=== PATIENT | male | born 1965 | race Caucasian/White ===

== ENCOUNTER → 2016-03-29 | Day surgery (SDC) | payer BC ==
[~2016-03-29] VITALS: Ht 170.2 cm; Wt 102.5 kg
[~2016-03-29] MED LIST: AMOX500C PO; ASPI1TAB PO; DIGO0.25 PO; ENAL2.5T PO; ENAL20TA PO; FURO20TA2 PO; LIDOCAINE 1% SDV INJ 30 ML VIAL As Ordered ONE; LIDOCAINE 1% SDV INJ 30 ML VIAL XX ONE; LR 1,000 ML IV SCH; MIDAZOLAM INJ 2 MG/2 ML VIAL (J2250) As Ordered ONE; PROPOFOL 200 MG/20 ML VIAL As Ordered ONE; SIMV40TA2 PO; SPIR25TA2 PO; WARF-22 PO; WARF4TAB51 PO; ceFAZolin SOD 1 GM in D5W MINI-BAG PLUS 50 ML IV ONE; fentaNYL 100 MCG/2 ML INJECTION (J3010) As Ordered ONE
[2016-03-29 13:32] LABS: INR 1.27
[2016-03-29 16:25] VITALS: BP 146/82
--- NOTE | 2016-03-29 18:39 | RO ---
DATE OF PROCEDURE: 03/29/2016 PREOPERATIVE DIAGNOSIS: Unexplained recurrent syncope. POSTOPERATIVE DIAGNOSIS: Unexplained recurrent syncope. FINDINGS: Unexplained recurrent syncope. OPERATIVE PROCEDURE: Implantation of a Medtronic LINQ implantable loop recorder. SURGEON: Cristiano Quiñones MD TRANSFER TABLE OPERATOR: None. ANESTHESIA: Lidocaine 1% local/monitored anesthetic care. SPECIMENS: None. BIOPSIES: None. BLOOD PRODUCTS REPLACED: None. DRAINS: None. COMPLICATIONS: None. DESCRIPTION OF OPERATION: The patient was prepped and draped over the left anterior chest and sternum. An incision approximately 1 cm in length was made with a #15 blade, approximately fifth left interspace, approximately 1 cm lateral to the left mid clavicular line. The insertion tool was tried in three directions (horizontal, caudal-left lateral 45 degrees, and vertical). The best R-waves were observed with loop recorder placed horizontal and this is the position that was kept. The incision was then closed using #4-0 Monocryl to approximate the incision but no knots tied. This was followed by three layers or Dermabond. After the Dermabond was dry, the Dermabond was snipped at the level of the skin at both ends. Patient tolerated the procedure well without any immediate complications. Lidocaine 1% was used as the local anesthetic. The implantable loop recorder placed was a AOMi Reveal LINQ, model #LNQ11 with serial #[id number]. The initial R-waves at implant with the final horizontal position were 0.32-0.40 millivolts. (or mV)
== END ==
LOC: M SDC 12:46
PROVIDERS: ATTEND Internal Medicine Cardiovascular Disease
DX: R55 Syncope and collapse (principal); I48.91 Unspecified atrial fibrillation; I50.9 Heart failure, unspecified; Z95.2 Presence of prosthetic heart valve; Z86.79 Personal history of other diseases of the circulatory system; Z79.899 Other long term (current) drug therapy; Z79.82 Long term (current) use of aspirin; Z79.01 Long term (current) use of anticoagulants
CPT/HCPCS: 33282; 36415; 85610; C1764; J0690; J2250; J3010

== ENCOUNTER → 2016-04-14 | Outpatient (CLI) | payer BC ==
[~2016-04-14] MED LIST changes: -LIDOCAINE 1% SDV INJ 30 ML VIAL As Ordered ONE; -LIDOCAINE 1% SDV INJ 30 ML VIAL XX ONE; -LR 1,000 ML IV SCH; -MIDAZOLAM INJ 2 MG/2 ML VIAL (J2250) As Ordered ONE; -PROPOFOL 200 MG/20 ML VIAL As Ordered ONE; -ceFAZolin SOD 1 GM in D5W MINI-BAG PLUS 50 ML IV ONE; -fentaNYL 100 MCG/2 ML INJECTION (J3010) As Ordered ONE
[2016-04-14 19:55] LABS: INR 2.48
== END ==
LOC: M WUC 15:48
PROVIDERS: ATTEND Nurse Practitioner Family
DX: I48.92 Unspecified atrial flutter (principal)

== ENCOUNTER → 2016-05-08 | Outpatient (CLI) | payer BC ==
[2016-05-08 20:50] LABS: INR 3.81
== END ==
LOC: M WUC 16:46
PROVIDERS: ATTEND Nurse Practitioner Family
DX: I48.92 Unspecified atrial flutter (principal); Z51.81 Encounter for therapeutic drug level monitoring; Z79.01 Long term (current) use of anticoagulants

== ENCOUNTER → 2016-08-07 | Outpatient (CLI) | payer BC ==
[2016-08-07 19:24] LABS: ALBUMIN 3.8 GM/DL (3.2-5.2); ANION GAP 4 MEQ/L (8-16); BLOOD UREA NITROGEN 16 MG/DL (7-18); CALCIUM LEVEL 8.8 MG/DL (8.5-10.1); CARBON DIOXIDE LEVEL 29 MEQ/L (21-32); CHLORIDE LEVEL 108 MEQ/L (98-107); CREATININE FOR GFR 0.96 MG/DL (0.70-1.30); GLOMERULAR FILTRATION RATE > 60.0 (>56); GLUCOSE, FASTING 79 MG/DL (70-105); MAGNESIUM LEVEL 2.2 MG/DL (1.8-2.4); PHOSPHORUS LEVEL 4.1 MG/DL (2.5-4.9); POTASSIUM SERUM 4.4 MEQ/L (3.5-5.1); SODIUM LEVEL 141 MEQ/L (136-145)
== END ==
LOC: M WUC 15:43
PROVIDERS: ATTEND Physician Assistant
DX: I42.0 Dilated cardiomyopathy (principal)

== ENCOUNTER → 2017-03-02 | Outpatient (CLI) | payer BC | LOC: M CLY 15:02 | DX: M25.562 Pain in left knee (principal); M25.762 Osteophyte, left knee | CPT/HCPCS: 73564 ==

== ENCOUNTER → 2017-12-20 | Outpatient (CLI) | payer BC ==
[2017-12-20 16:24] LABS: HEMATOCRIT 46.3 % (42.0-52.0); HEMOGLOBIN 15.2 g/dl (13.5-17.5); MEAN CORPUSCULAR HEMOGLOBIN 29.6 pg (27.0-33.0); MEAN CORPUSCULAR HGB CONC 32.8 g/dl (32.0-36.5); MEAN CORPUSCULAR VOLUME 90.1 fl (80.0-96.0); PLATELET COUNT, AUTOMATED 174 10^3/uL (150-450); RED BLOOD COUNT 5.14 10^6/uL (4.30-6.10); RED CELL DISTRIBUTION WIDTH 13.2 % (11.5-14.5); WHITE BLOOD COUNT 6.1 10^3/uL (4.0-10.0)
[2017-12-20 16:53] LABS: ALBUMIN 4.1 GM/DL (3.2-5.2); ALBUMIN/GLOBULIN RATIO 1.58 (1.00-1.93); ALKALINE PHOSPHATASE 57 U/L (45-117); ALT/SGPT 29 U/L (12-78); ANION GAP 6 MEQ/L (8-16); AST/SGOT 26 U/L (7-37); BILIRUBIN,TOTAL 0.6 MG/DL (0.2-1.0); BLOOD UREA NITROGEN 21 MG/DL (7-18); CALCIUM LEVEL 8.7 MG/DL (8.5-10.1); CARBON DIOXIDE LEVEL 28 MEQ/L (21-32); CHLORIDE LEVEL 110 MEQ/L (98-107); CHOLESTEROL LEVEL 156 MG/DL (<200); CREATININE FOR GFR 0.91 MG/DL (0.70-1.30); GLOMERULAR FILTRATION RATE > 60.0 (>56); GLUCOSE, FASTING 78 MG/DL (70-100); HDL CHOLESTEROL 40 MG/DL (>40); LDL CHOLESTEROL 97 MG/DL (<100); MAGNESIUM LEVEL 2.3 MG/DL (1.8-2.4); NON-HDL-C 116 MG/DL; POTASSIUM SERUM 4.9 MEQ/L (3.5-5.1); SODIUM LEVEL 144 MEQ/L (136-145); TOTAL PROTEIN 6.7 GM/DL (6.4-8.2); TRIGLYCERIDES LEVEL 94 MG/DL (<150)
== END ==
LOC: M WUC 14:47
DX: I48.4 Atypical atrial flutter (principal); E78.2 Mixed hyperlipidemia; I42.0 Dilated cardiomyopathy
CPT/HCPCS: 83735

== ENCOUNTER → 2018-05-14 | Outpatient (CLI) | payer BC ==
[~2018-05-14] MED LIST changes: +SPIR-10 PO; -SPIR25TA2 PO
[2018-05-14 17:07] LABS: BLOOD UREA NITROGEN 16 MG/DL (7-18); CALCIUM LEVEL 8.4 MG/DL (8.5-10.1); CARBON DIOXIDE LEVEL 30 MEQ/L (21-32); CHLORIDE LEVEL 110 MEQ/L (98-107); GLOMERULAR FILTRATION RATE > 60.0 (>56); GLUCOSE, FASTING 81 MG/DL (70-100); MAGNESIUM LEVEL 2.3 MG/DL (1.8-2.4); POTASSIUM SERUM 4.5 MEQ/L (3.5-5.1); SODIUM LEVEL 143 MEQ/L (136-145)
== END ==
LOC: M WUC 14:01
PROVIDERS: ATTEND Physician Assistant
DX: I42.0 Dilated cardiomyopathy (principal)

== ENCOUNTER → 2019-06-06 | Outpatient (REF) | payer MEDICAID ==
[~2019-06-06] MED LIST changes: -ASPI1TAB PO; +ASPI81TA26 PO; -SIMV40TA2 PO; +SIMV40TA20 PO
[2019-06-06 11:55] LABS: BASO % 0.8 % (0.0-1.0); EOS # 0.1 10^3/uL (0.0-0.5); EOS % 1.8 % (0.0-3.0); HEMATOCRIT 47.3 % (42.0-52.0); LYMPH # 1.5 10^3/uL (1.5-5.0); LYMPH % 29.7 % (24.0-44.0); MEAN CORPUSCULAR HEMOGLOBIN 30.5 pg (27.0-33.0); MEAN CORPUSCULAR HGB CONC 33.8 g/dl (32.0-36.5); MEAN CORPUSCULAR VOLUME 90.1 fl (80.0-96.0); MONO # 0.6 10^3/uL (0.0-0.8); MONO % 11.3 % (0.0-5.0); NEUTROPHILS # 2.8 10^3/uL (1.5-8.5); NEUTROPHILS % 55.6 % (36.0-66.0); PLATELET COUNT, AUTOMATED 166 10^3/uL (150-450); RED BLOOD COUNT 5.25 10^6/uL (4.30-6.10); WHITE BLOOD COUNT 5.1 10^3/uL (4.0-10.0)
[2019-06-06 12:26] LABS: ALBUMIN 3.8 GM/DL (3.2-5.2); ALT/SGPT 25 U/L (12-78); BILIRUBIN,TOTAL 0.9 MG/DL (0.2-1.0); BLOOD UREA NITROGEN 21 MG/DL (7-18); CALCIUM LEVEL 8.9 MG/DL (8.5-10.1); CARBON DIOXIDE LEVEL 28 MEQ/L (21-32); CHLORIDE LEVEL 108 MEQ/L (98-107); CHOLESTEROL LEVEL 145 MG/DL (<200); CHOLESTEROL RISK RATIO 3.815 (<5); CREATININE FOR GFR 1.02 MG/DL (0.70-1.30); GLOMERULAR FILTRATION RATE > 60.0 (>56); GLUCOSE, FASTING 71 MG/DL (70-100); HDL CHOLESTEROL 38 MG/DL (>40); LDL CHOLESTEROL 90 MG/DL (<100); NON-HDL-C 107 MG/DL; POTASSIUM SERUM 4.6 MEQ/L (3.5-5.1); SODIUM LEVEL 139 MEQ/L (136-145); TOTAL PROTEIN 6.7 GM/DL (6.4-8.2); TRIGLYCERIDES LEVEL 85 MG/DL (<150)
== END ==
LOC: M SFHCCLAY 09:29
PROVIDERS: ATTEND Physician Assistant
DX: Z12.5 Encounter for screening for malignant neoplasm of prostate (principal); I11.9 Hypertensive heart disease without heart failure; E66.01 Morbid (severe) obesity due to excess calories; E78.2 Mixed hyperlipidemia

== ENCOUNTER → 2019-08-22 | Outpatient (CLI) | payer MEDICAID, OTHER ==
[2019-08-22 16:22] LABS: HEMATOCRIT 44.2 % (42.0-52.0); HEMOGLOBIN 15.4 g/dl (13.5-17.5); MEAN CORPUSCULAR HEMOGLOBIN 30.4 pg (27.0-33.0); MEAN CORPUSCULAR HGB CONC 34.8 g/dl (32.0-36.5); MEAN CORPUSCULAR VOLUME 87.2 fl (80.0-96.0); PLATELET COUNT, AUTOMATED 155 10^3/uL (150-450); RED BLOOD COUNT 5.07 10^6/uL (4.30-6.10)
[2019-08-22 16:25] LABS: ALBUMIN 3.7 GM/DL (3.2-5.2); ALT/SGPT 26 U/L (12-78); BILIRUBIN,TOTAL 1.1 MG/DL (0.2-1.0); BLOOD UREA NITROGEN 17 MG/DL (7-18); CALCIUM LEVEL 8.3 MG/DL (8.5-10.1); CARBON DIOXIDE LEVEL 24 MEQ/L (21-32); CHLORIDE LEVEL 108 MEQ/L (98-107); CHOLESTEROL LEVEL 142 MG/DL (<200); CHOLESTEROL RISK RATIO 4.896 (<5); CREATININE FOR GFR 0.94 MG/DL (0.70-1.30); GLOMERULAR FILTRATION RATE > 60.0 (>56); GLUCOSE, FASTING 90 MG/DL (70-100); HDL CHOLESTEROL 29 MG/DL (>40); LDL CHOLESTEROL 82 MG/DL (<100); MAGNESIUM LEVEL 2.1 MG/DL (1.8-2.4); NON-HDL-C 113 MG/DL; POTASSIUM SERUM 4.1 MEQ/L (3.5-5.1); SODIUM LEVEL 139 MEQ/L (136-145); TOTAL PROTEIN 6.4 GM/DL (6.4-8.2); TRIGLYCERIDES LEVEL 153 MG/DL (<150)
== END ==
LOC: M WUC 14:32
PROVIDERS: ATTEND Physician Assistant
DX: I48.4 Atypical atrial flutter (principal); I42.0 Dilated cardiomyopathy; E78.2 Mixed hyperlipidemia

== ENCOUNTER → 2019-10-30 | Outpatient (CLI) | payer OTHER ==
[~2019-10-30] MED LIST changes: +ENAL1TAB46 PO; -ENAL2.5T PO; -ENAL20TA PO; +ENAL20TA11 PO
--- NOTE | 2019-12-02 08:16 | REP ---
BILATERAL HIP STUDY: 4-VIEWS HISTORY: Bilateral hip pain. FINDINGS: AP and frog leg views are obtained bilaterally. Femoral heads are smooth and rounded. Hip joint spaces are preserved. There is mild superior acetabular spurring present bilaterally. No erosive change is seen. No flattening is seen. Periarticular soft tissues are unremarkable. IMPRESSION: Minimal bilateral acetabular spurring. No acute abnormality. MTDD
--- NOTE | 2019-12-02 08:17 | REP ---
BILATERAL KNEE SERIES: 10-VIEWS HISTORY: Bilateral knee pain. COMPARISON: Left knee radiographs 03/02/2017. FINDINGS: There is moderate bilateral patellofemoral narrowing and patellofemoral spur formation consistent with osteoarthritis. On the left, this is unchanged from the comparison study. No evidence of joint effusion. There is mild medial and lateral compartment spurring bilaterally as well. No erosive change is seen. No other joint space narrowing is appreciated on these radiographs. IMPRESSION: Three compartment osteoarthritis most pronounced in the patellofemoral compartment. This is a little more prominent on the left than the right and it is radiographically unchanged on the left compared to the prior left knee series 03/02/2017. [facility]
--- NOTE | 2019-12-02 08:18 | REP ---
BILATERAL ANKLE SERIES: 8-VIEWS HISTORY: Bilateral ankle pain. FINDINGS: There is prominent Achilles calcaneal spurring bilaterally, particularly plantar. There is evidence of enthesopathy with tendon insertion site spurring at multiple sites bilaterally about the ankle. The ankle mortise is intact on both sides. There is osteoarthritic narrowing of the tibiotalar articulation on the left with anterior and posterior tibial spurring. No joint space narrowing on the right. No erosive change is seen on either side. There are multiple ossific densities along the course of the plantar fascia on the right with 1 or 2 on the left as well. Dystrophic soft tissue calcifications are seen in the distal calf soft tissues bilaterally. There is some vascular calcification in the distal calf as well. On the right, there is focal thickening along the silhouette of the Achilles tendon, question Achilles tendinosis/tendinitis. The margins of the Achilles tendon on the left are unremarkable. IMPRESSION: Evidence of enthesopathy. Ankle osteoarthritis particularly on the left. Focal thickening of the Achilles tendon on the right suggesting Achilles tendinosis. Plantar spurring. [facility]
--- NOTE | 2019-12-02 08:19 | REP ---
BILATERAL FOOT SERIES: 8-VIEWS HISTORY: Foot and ankle pain. FINDINGS: 4-views of each foot demonstrate overall normal mineralization. There is mild osteoarthritic spurring at the mid-foot articulations, right more so than left. There is plantar calcaneal spurring bilaterally. There are soft tissue ossific densities in the plantar soft tissues bilaterally, right more prominent than left. There are accessory ossicles adjacent to the medial aspect of the talus on the right. Subcortical cyst formation is seen in the distal first and fifth metatarsals on the right. No definite erosive changes are seen. There is a moderate hallux valgus deformity on the left. IMPRESSION: Mid-foot osteoarthritic changes and hallux valgus on the left. First and fifth MTP joint subcortical cyst formation. MTDD
== END ==
LOC: M WUC 15:03
PROVIDERS: ATTEND Physician Assistant
DX: M25.571 Pain in right ankle and joints of right foot (principal); M25.572 Pain in left ankle and joints of left foot; M17.0 Bilateral primary osteoarthritis of knee; M76.891 Other specified enthesopathies of right lower limb, excluding foot; M76.892 Other specified enthesopathies of left lower limb, excluding foot; M19.072 Primary osteoarthritis, left ankle and foot; M20.12 Hallux valgus (acquired), left foot; M85.471 Solitary bone cyst, right ankle and foot; M77.31 Calcaneal spur, right foot; M77.32 Calcaneal spur, left foot

== ENCOUNTER → 2020-06-15 | Outpatient (CLI) | payer OTHER, MEDICAID ==
[2020-06-15 18:57] LABS: HEMATOCRIT 31.6 % (42.0-52.0); HEMOGLOBIN 10.1 g/dl (13.5-17.5); MEAN CORPUSCULAR VOLUME 81.2 fl (80.0-96.0); PLATELET COUNT, AUTOMATED 138 10^3/uL (150-450); RED BLOOD COUNT 3.89 10^6/uL (4.30-6.10); WHITE BLOOD COUNT 2.8 10^3/uL (4.0-10.0)
[2020-06-15 19:02] LABS: INR 1.26; PROTHROMBIN TIME 16.1 SECONDS (12.5-14.3)
[2020-06-15 19:03] LABS: PARTIAL THROMBOPLASTIN TIME 36.8 SECONDS (24.2-38.5)
[2020-06-15 19:07] LABS: APPEARANCE, URINE HAZY (CLEAR); BACTERIA, URINE AUTO 1+ (NEGATIVE); BILIRUBIN, URINE AUTO NEGATIVE (NEGATIVE); BLOOD, URINE BLOOD 2+ (NEGATIVE); COLOR, URINE AMBER (YELLOW); GLUCOSE, URINE (UA) AUTO NEGATIVE (NEGATIVE); GRANULAR CAST, URINE AUTO 8 /LPF; KETONE, URINE AUTO 1+ mg/dL (NEGATIVE); LEUKOCYTE ESTERASE, URINE AUTO NEGATIVE (NEGATIVE); MUCUS, URINE SMALL (NEGATIVE); NITRITE, URINE AUTO NEGATIVE (NEGATIVE); PROTEIN, URINE AUTO 1+ mg/dL (NEGATIVE); RBC, URINE AUTO 6 /HPF (0-3); SPECIFIC GRAVITY URINE AUTO 1.024 (1.002-1.035); SQUAMOUS EPITHELIAL CELL UR AU 1 /HPF (0-6); WBC, URINE AUTO 5 /HPF (0-3)
[2020-06-15 19:22] LABS: ALBUMIN 3.3 GM/DL (3.2-5.2); ALT/SGPT 32 U/L (12-78); BILIRUBIN,TOTAL 1.3 MG/DL (0.2-1.0); BLOOD UREA NITROGEN 30 MG/DL (7-18); CALCIUM LEVEL 8.7 MG/DL (8.5-10.1); CARBON DIOXIDE LEVEL 23 MEQ/L (21-32); CHLORIDE LEVEL 104 MEQ/L (98-107); COMPLEMENT C3 88 MG/DL (90-180); COMPLEMENT C4 18 MG/DL (10-40); CREATININE FOR GFR 1.43 MG/DL (0.70-1.30); FREE T4 1.32 NG/DL (0.76-1.46); GLOMERULAR FILTRATION RATE 54.5 (>56); GLUCOSE, FASTING 73 MG/DL (70-100); LIPASE 138 U/L (73-393); POTASSIUM SERUM 4.2 MEQ/L (3.5-5.1); RHEUMATOID FACTOR QUANT 37.6 IU/ML (<15.0); SODIUM LEVEL 135 MEQ/L (136-145)
[2020-06-15 19:34] LABS: ATYPICAL LYMPH 2 % (0-5); BASOPHILS 1 % (0-1); LYMPHOCYTES 45 % (16-44); MONOCYTES 7 % (0-5); NEUTROPHILS 44 % (28-66)
[2020-06-15 19:35] LABS: ANISOCYTOSIS 2+; PLATELET ESTIMATE DECREASED (NORMAL); POLYCHROMASIA 1+
[2020-06-15 19:35] LABS: HEPATITIS B SURFACE ANTIGEN NEGATIVE (NEGATIVE)
[2020-06-15 20:56] LABS: ERYTHROCYTE SEDIMENTATION RATE 63 mm/hr (0-20)
--- NOTE | 2020-06-16 02:10 | REP ---
INDICATION: EPIGASTRIC PAIN.....LAB 1ST COMPARISON: 12/01/2015, 05/21/2015 TECHNIQUE: PA and lateral. FINDINGS: The mediastinum and cardiac silhouette are stable with evidence for prior sternotomy and cardiac valve repair. Loop recorder noted. Chronic pleuroparenchymal changes involving the right lower lung zone are similar to prior examination. No obvious acute consolidation, effusion, or pneumothorax. IMPRESSION: No obvious acute cardiopulmonary process. <Electronically signed by Erwin Pastrana > 06/16/20 0200
== END ==
LOC: M LAB 17:55
PROVIDERS: ATTEND Physician Assistant
DX: R10.13 Epigastric pain (principal); R63.4 Abnormal weight loss; R23.3 Spontaneous ecchymoses

== ENCOUNTER → 2020-06-17 | Outpatient (CLI) | payer OTHER, MEDICAID | LOC: M WUC 09:08 | PROVIDERS: ATTEND Physician Assistant | DX: R23.3 Spontaneous ecchymoses (principal); R63.4 Abnormal weight loss; R10.13 Epigastric pain ==

== ENCOUNTER → 2020-06-18 | Outpatient (REF) | payer OTHER, MEDICAID | LOC: M SFHCCAPE 15:47 | PROVIDERS: ATTEND Physician Assistant | DX: R10.13 Epigastric pain (principal); R63.4 Abnormal weight loss; R23.3 Spontaneous ecchymoses ==

== ENCOUNTER → 2020-06-22 | Outpatient (REF) | payer OTHER ==
[2020-06-22 16:32] LABS: HEMATOCRIT 26.6 % (42.0-52.0); HEMOGLOBIN 8.8 g/dl (13.5-17.5); MEAN CORPUSCULAR HGB CONC 33.1 g/dl (32.0-36.5); MEAN CORPUSCULAR VOLUME 81.6 fl (80.0-96.0); PLATELET COUNT, AUTOMATED 124 10^3/uL (150-450); RED BLOOD COUNT 3.26 10^6/uL (4.30-6.10); WHITE BLOOD COUNT 2.1 10^3/uL (4.0-10.0)
[2020-06-22 16:40] LABS: INR 1.23; PROTHROMBIN TIME 15.8 SECONDS (12.5-14.3)
[2020-06-22 16:45] LABS: AMORPHOUS SEDIMENT MODERATE (NEGATIVE); APPEARANCE, URINE TURBID (CLEAR); BACTERIA, URINE AUTO NEGATIVE (NEGATIVE); BILIRUBIN, URINE AUTO NEGATIVE (NEGATIVE); BLOOD, URINE BLOOD 2+ (NEGATIVE); COLOR, URINE AMBER (YELLOW); GLUCOSE, URINE (UA) AUTO NEGATIVE (NEGATIVE); KETONE, URINE AUTO NEGATIVE (NEGATIVE); LEUKOCYTE ESTERASE, URINE AUTO NEGATIVE (NEGATIVE); MUCUS, URINE SMALL (NEGATIVE); NITRITE, URINE AUTO NEGATIVE (NEGATIVE); PROTEIN, URINE AUTO NEGATIVE (NEGATIVE); RBC, URINE AUTO 3 /HPF (0-3); SPECIFIC GRAVITY URINE AUTO 1.018 (1.002-1.035); SQUAMOUS EPITHELIAL CELL UR AU 0 /HPF (0-6); WBC, URINE AUTO 0 /HPF (0-3)
[2020-06-22 16:55] LABS: C REACTIVE PROTEIN QUANTITATIV 2.92 MG/DL (0.00-0.30)
[2020-06-22 17:19] LABS: ERYTHROCYTE SEDIMENTATION RATE 60 mm/hr (0-20)
[2020-06-22 17:24] LABS: ATYPICAL LYMPH 5 % (0-5); BASOPHILS 1 % (0-1); LYMPHOCYTES 48 % (16-44); MONOCYTES 10 % (0-5); NEUTROPHILS 35 % (28-66); PLATELET ESTIMATE DECREASED (NORMAL)
[2020-06-22 17:25] LABS: ANISOCYTOSIS 1+
[2020-06-23 19:55] LABS: BILIRUBIN,TOTAL 1.1 MG/DL (0.2-1.0); CALCIUM LEVEL 8.4 MG/DL (8.5-10.1); CREATININE FOR GFR 1.44 MG/DL (0.70-1.30); POTASSIUM SERUM 4.4 MEQ/L (3.5-5.1); TOTAL PROTEIN 7.8 GM/DL (6.4-8.2)
== END ==
LOC: M SFHCCAPE 07:31
PROVIDERS: ATTEND Physician Assistant
DX: R10.13 Epigastric pain (principal); R63.4 Abnormal weight loss; R23.3 Spontaneous ecchymoses

== ENCOUNTER → 2020-06-25 | Outpatient (CLI) | payer OTHER ==
[2020-06-25 18:44] LABS: APPEARANCE, URINE HAZY (CLEAR); BACTERIA, URINE AUTO NEGATIVE (NEGATIVE); BILIRUBIN, URINE AUTO NEGATIVE (NEGATIVE); BLOOD, URINE BLOOD 2+ (NEGATIVE); COLOR, URINE AMBER (YELLOW); GLUCOSE, URINE (UA) AUTO NEGATIVE (NEGATIVE); KETONE, URINE AUTO NEGATIVE (NEGATIVE); LEUKOCYTE ESTERASE, URINE AUTO NEGATIVE (NEGATIVE); MUCUS, URINE SMALL (NEGATIVE); NITRITE, URINE AUTO NEGATIVE (NEGATIVE); PROTEIN, URINE AUTO 1+ mg/dL (NEGATIVE); RBC, URINE AUTO 4 /HPF (0-3); SPECIFIC GRAVITY URINE AUTO 1.021 (1.002-1.035); SQUAMOUS EPITHELIAL CELL UR AU 1 /HPF (0-6); WBC, URINE AUTO 2 /HPF (0-3)
[2020-06-25 19:08] LABS: C REACTIVE PROTEIN QUANTITATIV 2.69 MG/DL (0.00-0.30); COMPLEMENT C3 80 MG/DL (90-180); FERRITIN 1696 NG/ML (26-388); HEPATITIS B SURFACE ANTIBODY NEGATIVE (POSITIVE); IMMUNOGLOBULIN G 3410 MG/DL (681-1648); TOTAL PROTEIN 8.9 GM/DL (6.4-8.2); URIC ACID 10.4 MG/DL (3.5-7.2); VITAMIN B12 LEVEL 899 PG/ML (247-911)
[2020-06-25 20:46] LABS: TOTAL PROTEIN,RANDOM URINE 44.6 MG/DL (0.0-12.0)
[2020-06-28 10:01] LABS: ALBUMIN 3.75 GM/DL (3.29-5.55); ALBUMIN % 42.1 % (55.8-66.1); ALPHA-1-GLOBULIN % 5.4 % (2.9-4.9); ALPHA-1-GLOBULINS 0.48 GM/DL (0.17-0.41); ALPHA-2-GLOBULINS % 6.7 % (7.1-11.8); BETA-1-GLOBULINS 0.36 GM/DL (0.28-0.60); BETA-1-GLOBULINS % 4.1 % (4.7-7.2); BETA-2-GLOBULINS 0.25 GM/DL (0.19-0.55); BETA-2-GLOBULINS % 2.8 % (3.2-6.5); GAMMA GLOBULIN % 38.9 % (11.1-18.8); GAMMA GLOBULINS 3.46 GM/DL (0.65-1.58)
[2020-06-30 10:58] LABS: DRVV SCREEN 47.1 SEC
[2020-06-30 11:03] LABS: PTT LUPUS TYPE ANTICOAG SCREEN 1.2 (0-1.2)
[2020-06-30 11:10] LABS: DRVV CONFIRM 41.2 SEC; LUPUS CONFIRM RATIO 1.1
[2020-06-30 11:11] LABS: NORMALIZED RATIO 1.09 (0.00-1.20)
== END ==
LOC: M LAB 17:36
PROVIDERS: ATTEND Internal Medicine
DX: D61.818 Other pancytopenia (principal)

== ENCOUNTER → 2020-07-02 | Outpatient (CLI) | payer OTHER ==
--- NOTE | 2020-07-02 10:03 | REP ---
INDICATION: EPIGASTRIC PAIN, WEIGHT LOSS. COMPARISON: None. TECHNIQUE: Real-time sonographic evaluation of ABDOMEN performed. FINDINGS: Hypoechoic irregular soft tissue echogenicity is seen along the posterior wall of the gallbladder, nonmobile, with irregular margins. This could represent tumefactive sludge versus a mass. No gallstones are seen. There is no intrahepatic or extrahepatic biliary dilatation, common bile duct measures 3 mm in maximum diameter. Liver demonstrates somewhat heterogeneous echotexture with no mass. The pancreas demonstrates homogeneous echotexture with no gross mass. Spleen is enlarged, measuring 15.6 x 17.7 x 8.7 cm. Splenic index 2402. There is no hydronephrosis of either kidney. A benign anechoic cyst is seen in the lower pole the left kidney measuring 5.0 x 3.3 x 5.7 cm. Lobulated left renal cortex is noted with no definite solid mass. The right kidney measures 12.0 x 5.3 x 4.7 cm. Left renal dimensions are 11.7 x 6.2 x 5.7 cm. The visualized abdominal aorta is normal in caliber with no aneurysm. No free fluid is seen. IMPRESSION: Irregular oval hypoechoic echogenicity along the posterior wall of the gallbladder may represent tumefactive sludge or gallbladder mass. There are no gallstones or biliary dilatation. Recommend MRI of the abdomen with and without contrast for further evaluation. Splenomegaly. Left renal cyst. <Electronically signed by Kyree Hernadez > 07/02/20 0959
== END ==
LOC: M RAD 08:16
PROVIDERS: ATTEND Physician Assistant
DX: R23.3 Spontaneous ecchymoses (principal); R63.4 Abnormal weight loss; R10.13 Epigastric pain

== ENCOUNTER → 2020-07-02 | Outpatient (REF) | payer OTHER ==
[2020-07-02 20:32] LABS: HEMATOCRIT 29.6 % (42.0-52.0); HEMOGLOBIN 9.5 g/dl (13.5-17.5); MEAN CORPUSCULAR HEMOGLOBIN 27.5 pg (27.0-33.0); MEAN CORPUSCULAR HGB CONC 32.1 g/dl (32.0-36.5); MEAN CORPUSCULAR VOLUME 85.5 fl (80.0-96.0); PLATELET COUNT, AUTOMATED 139 10^3/uL (150-450); RED BLOOD COUNT 3.46 10^6/uL (4.30-6.10); WHITE BLOOD COUNT 3.6 10^3/uL (4.0-10.0)
[2020-07-02 20:43] LABS: ALT/SGPT 24 U/L (12-78); BILIRUBIN,TOTAL 0.8 MG/DL (0.2-1.0); BLOOD UREA NITROGEN 21 MG/DL (7-18); CALCIUM LEVEL 8.4 MG/DL (8.5-10.1); CARBON DIOXIDE LEVEL 26 MEQ/L (21-32); CHLORIDE LEVEL 112 MEQ/L (98-107); CREATININE FOR GFR 1.34 MG/DL (0.70-1.30); GLOMERULAR FILTRATION RATE 58.7 (>56); GLUCOSE, FASTING 86 MG/DL (70-100); POTASSIUM SERUM 4.4 MEQ/L (3.5-5.1); SODIUM LEVEL 140 MEQ/L (136-145); TOTAL PROTEIN 8.4 GM/DL (6.4-8.2)
[2020-07-02 21:19] LABS: ATYPICAL LYMPH 38 % (0-5); BASOPHILS 2 % (0-1); LYMPHOCYTES 16 % (16-44); MONOCYTES 5 % (0-5); NEUTROPHILS 36 % (28-66); PLATELET ESTIMATE DECREASED (NORMAL)
[2020-07-02 21:20] LABS: ANISOCYTOSIS 2+; MICROCYTOSIS 1+
== END ==
LOC: M SFHCCAPE 19:40
PROVIDERS: ATTEND Physician Assistant
DX: R93.5 Abnormal findings on diagnostic imaging of other abdominal regions, including retroperitoneum (principal); R16.1 Splenomegaly, not elsewhere classified; D89.0 Polyclonal hypergammaglobulinemia

== ENCOUNTER → 2020-07-14 | Outpatient (CLI) | payer OTHER ==
[~2020-07-14] MED LIST changes: +PROHANCE 279.3MG/ML 5ML VIAL As Ordered ONE
--- NOTE | 2020-07-14 13:25 | REP ---
INDICATION: ABN IMAGING, SPLENOMEGALY. COMPARISON: Ultrasound 07/02/2020. TECHNIQUE: Multiple sequences obtained in the axial coronal planes prior to and following the intravenous administration of 8 cc ProHance. FINDINGS: There is mild cardiomegaly. There is a small hiatal hernia. The liver is mildly enlarged measuring approximately 19.7 cm in length. No liver mass is seen. The main portal vein measures 15 mm, slightly dilated, suggesting portal hypertension. The spleen is enlarged, with a length of approximately 16.1 cm. No intrinsic signal abnormality is seen. The adrenal glands are normal. No pancreatic mass is seen. There is no pancreatic duct dilatation. Nonenhancing benign cyst in the lower pole of left kidney measures approximately 6.2 cm in maximum diameter. There is no hydronephrosis bilaterally. There is mildly enlarged portal lymph node near the gallbladder 1.5 cm in short axis. Otherwise no adenopathy is seen. There is no free fluid in the abdomen. There is no evidence of biliary dilatation. In the dependent portion of the gallbladder there is debris likely representing sludge. There is no enhancing gallbladder mass. IMPRESSION: Gallbladder debris/sludge. No evidence of gallbladder wall mass. No biliary dilatation. Hepatosplenomegaly. The main portal vein measures 15 mm, slightly dilated, suggesting portal hypertension. Mild cardiomegaly. Small hiatal hernia. Mildly enlarged portal lymph node. Benign left renal cyst. <Electronically signed by Kyree Hernadez > 07/14/20 [id number]
== END ==
LOC: M RAD 11:29
PROVIDERS: ATTEND Physician Assistant
DX: R93.5 Abnormal findings on diagnostic imaging of other abdominal regions, including retroperitoneum (principal); R16.1 Splenomegaly, not elsewhere classified
CPT/HCPCS: 74183; A9576

== ENCOUNTER → 2020-07-27 | Outpatient (REF) | payer OTHER ==
[~2020-07-27] MED LIST changes: -PROHANCE 279.3MG/ML 5ML VIAL As Ordered ONE
[2020-07-27 17:06] LABS: ALBUMIN 3.5 GM/DL (3.2-5.2); ALT/SGPT 30 U/L (12-78); BILIRUBIN,DIRECT 0.2 MG/DL (0.0-0.2); BILIRUBIN,TOTAL 0.6 MG/DL (0.2-1.0); FERRITIN 820 NG/ML (26-388); IRON (FE) 65 UG/DL (65-175); PERCENT SATURATION 28.6 % (19.7-50.0); TOTAL IRON BINDING CAPACITY 227 UG/DL (250-450); TOTAL PROTEIN 8.4 GM/DL (6.4-8.2)
[2020-07-27 17:14] LABS: INR 1.13; PARTIAL THROMBOPLASTIN TIME 32.6 SECONDS (24.2-38.5); PROTHROMBIN TIME 14.8 SECONDS (12.5-14.3)
[2020-07-27 17:18] LABS: HEPATITIS B SURFACE ANTIBODY NEGATIVE (POSITIVE)
[2020-07-27 17:28] LABS: HEPATITIS B SURFACE ANTIGEN NEGATIVE (NEGATIVE)
[2020-07-27 17:56] LABS: HEPATITIS C VIRUS ABY INDEX 0.1 INDEX (<0.8)
[2020-07-27 17:57] LABS: HEPATITIS A ANTIBODY IGM NEGATIVE (NEGATIVE)
[2020-07-28 15:12] LABS: ALBUMIN 4.17 GM/DL (3.29-5.55); ALBUMIN % 49.7 % (55.8-66.1); ALPHA-1-GLOBULIN % 4.1 % (2.9-4.9); ALPHA-1-GLOBULINS 0.34 GM/DL (0.17-0.41); ALPHA-2-GLOBULINS % 7.1 % (7.1-11.8); BETA-1-GLOBULINS 0.35 GM/DL (0.28-0.60); BETA-1-GLOBULINS % 4.2 % (4.7-7.2); BETA-2-GLOBULINS 0.24 GM/DL (0.19-0.55); BETA-2-GLOBULINS % 2.8 % (3.2-6.5); GAMMA GLOBULIN % 32.1 % (11.1-18.8)
== END ==
LOC: M LABDRAWC 15:40
PROVIDERS: ATTEND Nurse Practitioner Family
DX: R93.89 Abnormal findings on diagnostic imaging of other specified body structures (principal); R16.2 Hepatomegaly with splenomegaly, not elsewhere classified; K76.6 Portal hypertension; R63.4 Abnormal weight loss

== ENCOUNTER → 2020-10-27 | Outpatient (CLI) | payer OTHER ==
[2020-10-27 16:31] LABS: C REACTIVE PROTEIN QUANTITATIV 2.16 MG/DL (0.00-0.30); RHEUMATOID FACTOR QUANT 24.6 IU/ML (<15.0)
[2020-10-27 16:39] LABS: HEMATOCRIT 29.8 % (42.0-52.0); HEMOGLOBIN 9.7 g/dl (13.5-17.5); MEAN CORPUSCULAR HEMOGLOBIN 27.6 pg (27.0-33.0); MEAN CORPUSCULAR HGB CONC 32.6 g/dl (32.0-36.5); MEAN CORPUSCULAR VOLUME 84.9 fl (80.0-96.0); PLATELET COUNT, AUTOMATED 162 10^3/uL (150-450); RED BLOOD COUNT 3.51 10^6/uL (4.30-6.10); WHITE BLOOD COUNT 3.2 10^3/uL (4.0-10.0)
[2020-10-27 17:50] LABS: ERYTHROCYTE SEDIMENTATION RATE 48 mm/hr (0-20)
[2020-10-27 18:04] LABS: ATYPICAL LYMPH 6 % (0-5); BASOPHILS 1 % (0-1); EOSINOPHILS 1 % (0-3); LYMPHOCYTES 30 % (16-44); MONOCYTES 4 % (0-5); NEUTROPHILS 54 % (28-66)
[2020-10-27 18:05] LABS: PLATELET ESTIMATE NORMAL (NORMAL)
== END ==
LOC: M WUC 10:43
PROVIDERS: ATTEND Internal Medicine
DX: D61.818 Other pancytopenia (principal); R76.8 Other specified abnormal immunological findings in serum; D84.1 Defects in the complement system

== ENCOUNTER → 2020-11-10 | Outpatient (CLI) | payer OTHER | LOC: M WUC 10:24 | PROVIDERS: ATTEND Internal Medicine | DX: D61.818 Other pancytopenia (principal); R76.8 Other specified abnormal immunological findings in serum ==

== ENCOUNTER 2020-11-30 17:34 | Inpatient (IN) | payer OTHER ==
[~2020-11-30] VITALS: Ht 170.2 cm; Wt 94.3 kg
[~2020-11-30 17:34] MED LIST changes: -ATEN25TA; -ATEN25TA PO; -ATOR40TA75; -ATOR40TA75 PO; -DRON400T; -DRON400T PO; -ENAL1TAB46; -GASTROGRAFIN SOLUTION 30ML (Q9963) As Ordered ONE; -ISOVUE-370 76% 100ML VIAL As Ordered ONE
[2020-11-30] MEDS ORDERED: ENAL1TAB46 (18:30)
[2020-11-30] MEDS ORDERED: ATOR40TA75 (18:30)
[2020-11-30] MEDS ORDERED: DRON400T (18:30)
[2020-11-30] MEDS ORDERED: ATEN25TA (18:30)
[2020-11-30] MEDS ORDERED: NS 1,000 ML IV SCH (21:05)
[2020-11-30] MEDS ORDERED: PANTOPRAZOLE 40MG VIAL (C9113 PER 1) IV ONE (21:05)
[2020-11-30 22:02] LABS: BASO % 0.8 % (0.0-1.0); EOS % 0.4 % (0.0-3.0); HEMATOCRIT 23.3 % (42.0-52.0); HEMOGLOBIN 7.6 g/dl (13.5-17.5); LYMPH # 0.8 10^3/uL (1.5-5.0); LYMPH % 32.9 % (24.0-44.0); MEAN CORPUSCULAR HGB CONC 32.6 g/dl (32.0-36.5); MEAN CORPUSCULAR VOLUME 82.6 fl (80.0-96.0); MONO # 0.2 10^3/uL (0.0-0.8); MONO % 8.3 % (2.0-8.0); NEUTROPHILS # 1.4 10^3/uL (1.5-8.5); NEUTROPHILS % 56.8 % (36.0-66.0); PLATELET COUNT, AUTOMATED 101 10^3/uL (150-450); RED BLOOD COUNT 2.82 10^6/uL (4.30-6.10); WHITE BLOOD COUNT 2.4 10^3/uL (4.0-10.0)
[2020-11-30 22:13] LABS: INR 1.44; PROTHROMBIN TIME 17.9 SECONDS (12.7-14.5)
[2020-11-30 22:36] LABS: ALBUMIN 2.7 GM/DL (3.2-5.2); ALT/SGPT 23 U/L (12-78); BILIRUBIN,DIRECT 0.2 MG/DL (0.0-0.2); BILIRUBIN,TOTAL 0.6 MG/DL (0.2-1.0); BLOOD UREA NITROGEN 126 MG/DL (7-18); CALCIUM LEVEL 8.1 MG/DL (8.5-10.1); CARBON DIOXIDE LEVEL 16 MEQ/L (21-32); CHLORIDE LEVEL 118 MEQ/L (98-107); CK-MB VALUE MASS 1.8 NG/ML (<3.6); CPK CREATINE PHOSPHOKINASE 58 U/L (39-308); CREATININE FOR GFR 6.57 MG/DL (0.70-1.30); GLOMERULAR FILTRATION RATE 9.4 (>56); GLUCOSE, FASTING 94 MG/DL (70-100); LIPASE 221 U/L (73-393); SODIUM LEVEL 140 MEQ/L (136-145); TROPONIN I < 0.02 NG/ML (< 0.10)
[2020-11-30] MEDS ORDERED: HumuLIN R (REGULAR) INSULIN (NovoLIN R) **100U/ML** PER UNIT IV STA (22:39)
[2020-11-30] MEDS ORDERED: DEXTROSE 50% 50 ML SYRINGE IV STA (22:39)
[2020-11-30] MEDS ORDERED: CALCIUM CHLORIDE 10% 1 GM in D5W 100 ML IV ONE (22:40)
[2020-11-30 22:57] LABS: RSV AMPLIFICATION NEGATIVE (NEGATIVE)
[2020-11-30] MEDS ORDERED: PATIROMER SORBITEX CALCIUM 8.4 GM POWDER PACKET (VELTASSA) PO ONE (23:00)
[2020-11-30] MEDS ORDERED: ATOR40TA75 PO (23:56)
[2020-11-30] MEDS ORDERED: ATEN25TA PO (23:56)
[2020-11-30] MEDS ORDERED: DRON400T PO (23:56)
[2020-11-30] MEDS ORDERED: ENAL1TAB46 PO (23:56)
[2020-12-01] VITALS (7 sets, daily range): BP systolic 101–117; BP diastolic 54–58
[2020-12-01] MEDS ORDERED: HOME MED LIST COMPLETE! XX SCH
[2020-12-01 01:17] LABS: IRON (FE) 46 UG/DL (65-175); PERCENT SATURATION 27.5 % (19.7-50.0); TOTAL IRON BINDING CAPACITY 167 UG/DL (250-450)
[2020-12-01 01:22] LABS: OSMOLALITY SERUM 338 MOSM/KG (275-295)
[2020-12-01] MEDS: SUCRALFATE 1 GM TAB PO SCH ×4 (02:46→18:11)
[2020-12-01 05:38] LABS: HEMATOCRIT 23.6 % (42.0-52.0); HEMOGLOBIN 7.7 g/dl (13.5-17.5); MEAN CORPUSCULAR HEMOGLOBIN 27.3 pg (27.0-33.0); MEAN CORPUSCULAR HGB CONC 32.6 g/dl (32.0-36.5); MEAN CORPUSCULAR VOLUME 83.7 fl (80.0-96.0); RED BLOOD COUNT 2.82 10^6/uL (4.30-6.10); WHITE BLOOD COUNT 2.2 10^3/uL (4.0-10.0)
[2020-12-01 06:07] LABS: CALCIUM LEVEL 8.1 MG/DL (8.5-10.1); CREATININE FOR GFR 6.44 MG/DL (0.70-1.30); GLOMERULAR FILTRATION RATE 9.6 (>56); MAGNESIUM LEVEL 2.2 MG/DL (1.8-2.4); POTASSIUM SERUM 6.7 MEQ/L (3.5-5.1)
[2020-12-01] MEDS ORDERED: ALBUTEROL SULFATE 2.5 MG/0.5 ML INH NEB SOLN NEB ONE (06:15)
[2020-12-01 08:02] LABS: PLATELET COUNT, AUTOMATED 91 10^3/uL (150-450)
[2020-12-01] MEDS: ASPIRIN 81MG ENTERIC TABLET PO SCH (09:13)
[2020-12-01] MEDS: DRONEDARONE 400 MG TAB (MULTAQ) PO SCH (09:13)
[2020-12-01] MEDS: atenoloL 25 MG TAB PO SCH (09:13)
[2020-12-01] MEDS ORDERED: SODIUM BICARBONATE 325 MG TAB PO SCH (11:40)
[2020-12-01] MEDS ORDERED: SODIUM BICARBONATE 150 MEQ in D5W 1,000 ML IV SCH ×2 (12:00→16:00)
[2020-12-01] MEDS: SODIUM BICARBONATE 325 MG TAB PO SCH ×2 (12:44→19:56)
[2020-12-01] MEDS ORDERED: PATIROMER SORBITEX CALCIUM 8.4 GM POWDER PACKET (VELTASSA) PO ONE (13:00)
[2020-12-01 15:27] LABS: AMORPHOUS SEDIMENT LARGE (NEGATIVE); APPEARANCE, URINE CLOUDY (CLEAR); BACTERIA, URINE AUTO 1+ (NEGATIVE); BILIRUBIN, URINE AUTO NEGATIVE (NEGATIVE); BLOOD, URINE BLOOD 3+ (NEGATIVE); COLOR, URINE YELLOW (YELLOW); GLUCOSE, URINE (UA) AUTO NEGATIVE (NEGATIVE); KETONE, URINE AUTO NEGATIVE (NEGATIVE); LEUKOCYTE ESTERASE, URINE AUTO NEGATIVE (NEGATIVE); MUCUS, URINE SMALL (NEGATIVE); NITRITE, URINE AUTO NEGATIVE (NEGATIVE); PROTEIN, URINE AUTO 2+ mg/dL (NEGATIVE); RBC, URINE AUTO 102 /HPF (0-3); SPECIFIC GRAVITY URINE AUTO 1.011 (1.002-1.035); SQUAMOUS EPITHELIAL CELL UR AU 2 /HPF (0-6); UROBILINOGEN, URINE AUTO 0.2 mg/dL (0.0-2.0); WBC, URINE AUTO 23 /HPF (0-3)
[2020-12-01 15:34] LABS: CALCIUM LEVEL 7.8 MG/DL (8.5-10.1); CREATININE FOR GFR 6.51 MG/DL (0.70-1.30); GLOMERULAR FILTRATION RATE 9.5 (>56); POTASSIUM SERUM 6.1 MEQ/L (3.5-5.1)
[2020-12-01] MEDS: SODIUM BICARBONATE 150 MEQ in D5W 1,000 ML IV SCH (16:55)
[2020-12-01 20:23] LABS: BLOOD UREA NITROGEN 120 MG/DL (7-18); CALCIUM LEVEL 7.6 MG/DL (8.5-10.1); CARBON DIOXIDE LEVEL 17 MEQ/L (21-32); CHLORIDE LEVEL 113 MEQ/L (98-107); COMPLEMENT C3 41 MG/DL (90-180); COMPLEMENT C4 17 MG/DL (10-40); CREATININE FOR GFR 6.22 MG/DL (0.70-1.30); GLUCOSE, FASTING 104 MG/DL (70-100); SODIUM LEVEL 138 MEQ/L (136-145)
[2020-12-01 20:52] LABS: HEPATITIS B SURFACE ANTIBODY NEGATIVE (POSITIVE)
[2020-12-01 21:03] LABS: HEPATITIS B SURFACE ANTIGEN NEGATIVE (NEGATIVE)
[2020-12-01 21:31] LABS: HEPATITIS B CORE ANTIBODY IGM NEGATIVE (NEGATIVE); HEPATITIS C VIRUS ABY INDEX 0.2 INDEX (<0.8)
[2020-12-02] VITALS (24 sets, daily range): BP systolic 100–117; BP diastolic 51–59; O2SAT 97–100
[2020-12-02] MEDS: SUCRALFATE 1 GM TAB PO SCH ×4 (00:14→18:10)
[2020-12-02] MEDS: SODIUM BICARBONATE 150 MEQ in D5W 1,000 ML IV SCH ×2 (00:14→19:55)
[2020-12-02 06:03] LABS: MEAN CORPUSCULAR HEMOGLOBIN 27.2 pg (27.0-33.0); MEAN CORPUSCULAR HGB CONC 33.7 g/dl (32.0-36.5); MEAN CORPUSCULAR VOLUME 80.7 fl (80.0-96.0); RED BLOOD COUNT 2.54 10^6/uL (4.30-6.10); WHITE BLOOD COUNT 1.8 10^3/uL (4.0-10.0)
[2020-12-02 06:24] LABS: HEMATOCRIT 20.5 % (42.0-52.0); PLATELET COUNT, AUTOMATED 84 10^3/uL (150-450)
[2020-12-02 06:26] LABS: BLOOD UREA NITROGEN 113 MG/DL (7-18); CALCIUM LEVEL 7.5 MG/DL (8.5-10.1); CARBON DIOXIDE LEVEL 20 MEQ/L (21-32); CHLORIDE LEVEL 112 MEQ/L (98-107); CREATININE FOR GFR 6.13 MG/DL (0.70-1.30); GLOMERULAR FILTRATION RATE 10.2 (>56); GLUCOSE, FASTING 88 MG/DL (70-100); HEMOGLOBIN 6.9 g/dl (13.5-17.5); IRON (FE) 40 UG/DL (65-175); PERCENT SATURATION 33.3 % (19.7-50.0); POTASSIUM SERUM 5.5 MEQ/L (3.5-5.1); SODIUM LEVEL 139 MEQ/L (136-145); TOTAL IRON BINDING CAPACITY 120 UG/DL (250-450); TOTAL PROTEIN 6.8 GM/DL (6.4-8.2)
[2020-12-02] MEDS: atenoloL 25 MG TAB PO SCH (09:00)
[2020-12-02] MEDS: SODIUM BICARBONATE 325 MG TAB PO SCH ×2 (09:29→21:42)
[2020-12-02] MEDS: ASPIRIN 81MG ENTERIC TABLET PO SCH (09:29)
[2020-12-02] MEDS ORDERED: LIDOCAINE 1% MDV 20ML VIAL As Ordered ONE (11:21)
[2020-12-02] MEDS ORDERED: PATIROMER SORBITEX CALCIUM 8.4 GM POWDER PACKET (VELTASSA) PO ONE (20:50)
[2020-12-03] VITALS (7 sets, daily range): BP systolic 98–116; BP diastolic 52–59
[2020-12-03] MEDS: SUCRALFATE 1 GM TAB PO SCH ×5 (00:06→23:57)
[2020-12-03] MEDS ORDERED: ACETAMINOPHEN TAB 650MG DOSE (2X325MG) PO ONE (00:25)
[2020-12-03] MEDS: atenoloL 25 MG TAB PO SCH (09:00)
[2020-12-03 09:30] LABS: HEMATOCRIT 24.3 % (42.0-52.0); HEMOGLOBIN 8.1 g/dl (13.5-17.5); MEAN CORPUSCULAR HEMOGLOBIN 27.7 pg (27.0-33.0); MEAN CORPUSCULAR HGB CONC 33.3 g/dl (32.0-36.5); MEAN CORPUSCULAR VOLUME 83.2 fl (80.0-96.0); RED BLOOD COUNT 2.92 10^6/uL (4.30-6.10)
[2020-12-03 09:31] LABS: PLATELET COUNT, AUTOMATED 78 10^3/uL (150-450)
[2020-12-03] MEDS: DRONEDARONE 400 MG TAB (MULTAQ) PO SCH ×2 (09:51→21:15)
[2020-12-03] MEDS: ASPIRIN 81MG ENTERIC TABLET PO SCH (09:52)
[2020-12-03] MEDS: SODIUM BICARBONATE 325 MG TAB PO SCH ×2 (09:52→21:17)
[2020-12-03 10:36] LABS: CALCIUM LEVEL 7.5 MG/DL (8.5-10.1); CREATININE FOR GFR 5.93 MG/DL (0.70-1.30); GLOMERULAR FILTRATION RATE 10.5 (>56); MAGNESIUM LEVEL 1.8 MG/DL (1.8-2.4); POTASSIUM SERUM 4.5 MEQ/L (3.5-5.1)
[2020-12-04] MEDS: SUCRALFATE 1 GM TAB PO SCH ×3 (05:20→17:52)
[2020-12-04 06:00] VITALS: BP 98/52
[2020-12-04 07:18] LABS: HEMATOCRIT 23.4 % (42.0-52.0); HEMOGLOBIN 7.8 g/dl (13.5-17.5); MEAN CORPUSCULAR HEMOGLOBIN 27.5 pg (27.0-33.0); MEAN CORPUSCULAR HGB CONC 33.3 g/dl (32.0-36.5); MEAN CORPUSCULAR VOLUME 82.4 fl (80.0-96.0); RED BLOOD COUNT 2.84 10^6/uL (4.30-6.10); WHITE BLOOD COUNT 2.1 10^3/uL (4.0-10.0)
[2020-12-04 07:30] LABS: PLATELET COUNT, AUTOMATED 87 10^3/uL (150-450)
[2020-12-04 07:52] LABS: CALCIUM LEVEL 7.4 MG/DL (8.5-10.1); CREATININE FOR GFR 5.92 MG/DL (0.70-1.30); GLOMERULAR FILTRATION RATE 10.6 (>56); MAGNESIUM LEVEL 1.8 MG/DL (1.8-2.4); POTASSIUM SERUM 4.8 MEQ/L (3.5-5.1)
[2020-12-04] MEDS: atenoloL 25 MG TAB PO SCH (09:00)
[2020-12-04] MEDS: SODIUM BICARBONATE 325 MG TAB PO SCH ×2 (09:28→20:01)
[2020-12-04] MEDS: DRONEDARONE 400 MG TAB (MULTAQ) PO SCH ×2 (09:28→20:01)
[2020-12-04] MEDS: ASPIRIN 81MG ENTERIC TABLET PO SCH (09:28)
[2020-12-04 15:30] VITALS: BP 84/50
[2020-12-04] MEDS ORDERED: NS 500 ML IV ONE ×2 (15:40→16:55)
[2020-12-04 16:43] VITALS: BP 88/48
[2020-12-04 18:35] LABS: HEMATOCRIT 26.8 % (42.0-52.0); HEMOGLOBIN 8.7 g/dl (13.5-17.5); MEAN CORPUSCULAR HEMOGLOBIN 27.3 pg (27.0-33.0); MEAN CORPUSCULAR HGB CONC 32.5 g/dl (32.0-36.5); RED BLOOD COUNT 3.19 10^6/uL (4.30-6.10); WHITE BLOOD COUNT 2.5 10^3/uL (4.0-10.0)
[2020-12-04 18:41] LABS: PLATELET COUNT, AUTOMATED 84 10^3/uL (150-450)
[2020-12-04 18:45] VITALS: BP 106/52
[2020-12-04 22:00] VITALS: BP 104/54
[2020-12-04 22:20] VITALS: BP 104/54
[2020-12-05] MEDS: SUCRALFATE 1 GM TAB PO SCH ×4 (00:53→18:11)
[2020-12-05 01:46] LABS: TOTAL VOLUME, URINE 1600 ML
[2020-12-05 05:06] LABS: URINE TOTAL PROTEIN 140.5 MG/DL (0-12)
[2020-12-05 06:00] VITALS: BP 106/54
[2020-12-05 06:20] LABS: HEMATOCRIT 22.7 % (42.0-52.0); HEMOGLOBIN 7.5 g/dl (13.5-17.5); MEAN CORPUSCULAR HEMOGLOBIN 27.6 pg (27.0-33.0); MEAN CORPUSCULAR VOLUME 83.5 fl (80.0-96.0); RED BLOOD COUNT 2.72 10^6/uL (4.30-6.10); WHITE BLOOD COUNT 2.3 10^3/uL (4.0-10.0)
[2020-12-05 06:29] LABS: PLATELET COUNT, AUTOMATED 88 10^3/uL (150-450)
[2020-12-05 06:37] LABS: CALCIUM LEVEL 7.2 MG/DL (8.5-10.1); CREATININE FOR GFR 6.13 MG/DL (0.70-1.30); GLOMERULAR FILTRATION RATE 10.2 (>56); POTASSIUM SERUM 4.9 MEQ/L (3.5-5.1)
[2020-12-05 06:38] LABS: MAGNESIUM LEVEL 1.7 MG/DL (1.8-2.4)
[2020-12-05] MEDS: SODIUM BICARBONATE 325 MG TAB PO SCH ×2 (08:38→20:06)
[2020-12-05] MEDS: DRONEDARONE 400 MG TAB (MULTAQ) PO SCH ×2 (08:39→20:06)
[2020-12-05] MEDS: atenoloL 25 MG TAB PO SCH (08:39)
[2020-12-05 14:00] VITALS: BP 96/44
[2020-12-05 17:21] VITALS: BP 108/60
[2020-12-05 22:00] VITALS: BP 110/57
[2020-12-06] VITALS (13 sets, daily range): BP systolic 97–128; BP diastolic 46–63
[2020-12-06] MEDS: SUCRALFATE 1 GM TAB PO SCH ×4 (05:08→18:17)
[2020-12-06] MEDS: ACETAMINOPHEN TAB 650MG DOSE (2X325MG) PO PRN ×2 (05:08→16:32)
[2020-12-06 05:57] LABS: HEMATOCRIT 22.3 % (42.0-52.0); HEMOGLOBIN 7.4 g/dl (13.5-17.5); MEAN CORPUSCULAR HEMOGLOBIN 27.7 pg (27.0-33.0); MEAN CORPUSCULAR HGB CONC 33.2 g/dl (32.0-36.5); MEAN CORPUSCULAR VOLUME 83.5 fl (80.0-96.0); RED BLOOD COUNT 2.67 10^6/uL (4.30-6.10); WHITE BLOOD COUNT 2.8 10^3/uL (4.0-10.0)
[2020-12-06 06:00] LABS: PLATELET COUNT, AUTOMATED 85 10^3/uL (150-450)
[2020-12-06 06:20] LABS: BLOOD UREA NITROGEN 107 MG/DL (7-18); CALCIUM LEVEL 7.5 MG/DL (8.5-10.1); CARBON DIOXIDE LEVEL 21 MEQ/L (21-32); CHLORIDE LEVEL 108 MEQ/L (98-107); CREATININE FOR GFR 6.36 MG/DL (0.70-1.30); GLOMERULAR FILTRATION RATE 9.7 (>56); GLUCOSE, FASTING 90 MG/DL (70-100); MAGNESIUM LEVEL 1.7 MG/DL (1.8-2.4); POTASSIUM SERUM 4.9 MEQ/L (3.5-5.1); SODIUM LEVEL 137 MEQ/L (136-145)
[2020-12-06] MEDS: ASPIRIN 81MG ENTERIC TABLET PO SCH (09:00)
[2020-12-06] MEDS: DRONEDARONE 400 MG TAB (MULTAQ) PO SCH ×2 (09:00→20:22)
[2020-12-06] MEDS: atenoloL 25 MG TAB PO SCH (09:00)
[2020-12-06] MEDS: SODIUM BICARBONATE 325 MG TAB PO SCH ×2 (09:00→20:22)
[2020-12-06] MEDS ORDERED: VANCOMYCIN HCL 1,000 MG, VIAL MATE ADAPTER 1 EACH in NS 250 ML IV SCH (10:35)
[2020-12-06 11:00] LABS: BASO % 0.7 % (0.0-1.0); EOS % 0.7 % (0.0-3.0); LYMPH # 0.7 10^3/uL (1.5-5.0); LYMPH % 25.3 % (24.0-44.0); MONO # 0.2 10^3/uL (0.0-0.8); MONO % 6.4 % (2.0-8.0); NEUTROPHILS # 1.9 10^3/uL (1.5-8.5); NEUTROPHILS % 66.2 % (36.0-66.0)
[2020-12-06] MEDS ORDERED: PIPERACILLIN/TAZOBACTAM SOD 2.25 GM in D5W MINI-BAG PLUS 50 ML IV SCH (12:00)
[2020-12-06 14:04] LABS: HIV 1&2 SCREEN CENTAUR NEGATIVE (NEGATIVE)
[2020-12-06 16:17] LABS: ANCA-ATYPICAL <1:20 titer (Neg:<1:20); CYTOPLASMIC NEUTROP AB ANCA-C <1:20 titer (Neg:<1:20); PERINUCLEAR AB ANCA-P <1:20 titer (Neg:<1:20)
[2020-12-06] MEDS: cefTRIAXone SOD 2 GM in D5W MINI-BAG PLUS 50 ML IV SCH (17:14)
[2020-12-06] MEDS: DOXYCYCLINE HYCLATE 100 MG in D5W MINI-BAG PLUS 100 ML IV SCH (18:17)
[2020-12-07] MEDS: SUCRALFATE 1 GM TAB PO SCH ×5 (00:48→23:46)
[2020-12-07] MEDS: DOXYCYCLINE HYCLATE 100 MG in D5W MINI-BAG PLUS 100 ML IV SCH ×2 (05:16→17:42)
[2020-12-07 05:25] VITALS: BP 122/62
[2020-12-07 06:02] LABS: HEMATOCRIT 25.9 % (42.0-52.0); HEMOGLOBIN 8.8 g/dl (13.5-17.5); MEAN CORPUSCULAR HEMOGLOBIN 28.4 pg (27.0-33.0); MEAN CORPUSCULAR VOLUME 83.5 fl (80.0-96.0); WHITE BLOOD COUNT 3.5 10^3/uL (4.0-10.0)
[2020-12-07 06:09] LABS: PLATELET COUNT, AUTOMATED 85 10^3/uL (150-450)
[2020-12-07 06:11] LABS: INR 1.52; PROTHROMBIN TIME 18.7 SECONDS (12.7-14.5)
[2020-12-07 06:23] LABS: CALCIUM LEVEL 7.5 MG/DL (8.5-10.1); CREATININE FOR GFR 7.26 MG/DL (0.70-1.30); GLOMERULAR FILTRATION RATE 8.4 (>56); MAGNESIUM LEVEL 1.7 MG/DL (1.8-2.4); POTASSIUM SERUM 4.7 MEQ/L (3.5-5.1)
[2020-12-07] MEDS: atenoloL 25 MG TAB PO SCH (08:31)
[2020-12-07] MEDS: SODIUM BICARBONATE 325 MG TAB PO SCH ×2 (08:32→20:31)
[2020-12-07] MEDS: DRONEDARONE 400 MG TAB (MULTAQ) PO SCH ×2 (08:33→20:31)
[2020-12-07] MEDS: ASPIRIN 81MG ENTERIC TABLET PO SCH (09:00)
[2020-12-07] MEDS ORDERED: LIDOCAINE 1% MDV 20ML VIAL As Ordered ONE ×2 (10:53→11:53)
[2020-12-07] MEDS ORDERED: MIDAZOLAM INJ 2MG/2ML VIAL (J2250 PER 1MG) As Ordered ONE (11:09)
[2020-12-07] MEDS ORDERED: fentaNYL 100 MCG/2 ML INJECTION As Ordered ONE (11:09)
[2020-12-07 13:16] LABS: ALBUMIN % 37.4 % (55.8-66.1); ALPHA-1-GLOBULIN % 5.8 % (2.9-4.9); ALPHA-2-GLOBULINS % 6.1 % (7.1-11.8); BETA-2-GLOBULINS % 2.4 % (3.2-6.5)
[2020-12-07 13:17] LABS: ALBUMIN 2.54 GM/DL (3.29-5.55); ALPHA-1-GLOBULINS 0.39 GM/DL (0.17-0.41); ALPHA-2-GLOBULINS 0.41 GM/DL (0.42-0.99); BETA-2-GLOBULINS 0.16 GM/DL (0.19-0.55); GAMMA GLOBULIN % 45.3 % (11.1-18.8); GAMMA GLOBULINS 3.08 GM/DL (0.65-1.58)
[2020-12-07 16:10] LABS: ANA (HEP2) Negative (.); ANTI-GLOMERULAR BASEMENT MEMB 4 units (0-20)
[2020-12-07] MEDS: cefTRIAXone SOD 2 GM in D5W MINI-BAG PLUS 50 ML IV SCH (17:05)
[2020-12-07 18:34] LABS: FOLATE 3.8 NG/ML
[2020-12-07 22:00] VITALS: BP 106/56
[2020-12-08] MEDS: SUCRALFATE 1 GM TAB PO SCH ×4 (05:50→23:44)
[2020-12-08] MEDS: DOXYCYCLINE HYCLATE 100 MG in D5W MINI-BAG PLUS 100 ML IV SCH ×2 (05:50→19:34)
[2020-12-08 06:00] VITALS: BP 102/67
[2020-12-08 06:51] LABS: HEMATOCRIT 26.1 % (42.0-52.0); HEMOGLOBIN 8.7 g/dl (13.5-17.5); MEAN CORPUSCULAR HEMOGLOBIN 27.8 pg (27.0-33.0); MEAN CORPUSCULAR HGB CONC 33.3 g/dl (32.0-36.5); MEAN CORPUSCULAR VOLUME 83.4 fl (80.0-96.0); RED BLOOD COUNT 3.13 10^6/uL (4.30-6.10); WHITE BLOOD COUNT 2.3 10^3/uL (4.0-10.0)
[2020-12-08 07:03] LABS: PLATELET COUNT, AUTOMATED 83 10^3/uL (150-450)
[2020-12-08 07:41] LABS: CALCIUM LEVEL 7.8 MG/DL (8.5-10.1); CREATININE FOR GFR 5.74 MG/DL (0.70-1.30); MAGNESIUM LEVEL 1.7 MG/DL (1.8-2.4); POTASSIUM SERUM 4.5 MEQ/L (3.5-5.1)
[2020-12-08] MEDS: ASPIRIN 81MG ENTERIC TABLET PO SCH (07:59)
[2020-12-08] MEDS: atenoloL 25 MG TAB PO SCH (08:00)
[2020-12-08] MEDS: DRONEDARONE 400 MG TAB (MULTAQ) PO SCH ×2 (08:00→22:20)
[2020-12-08] MEDS: SODIUM BICARBONATE 325 MG TAB PO SCH ×2 (08:00→22:20)
[2020-12-08] MEDS: MAGNESIUM OXIDE 400MG TAB (MAG-OX) PO SCH (09:31)
[2020-12-08 14:00] VITALS: BP 122/15
[2020-12-08] MEDS: cefTRIAXone SOD 2 GM in D5W MINI-BAG PLUS 50 ML IV SCH (18:35)
[2020-12-08 19:53] VITALS: BP 111/56
[2020-12-09 06:00] VITALS: BP 113/63
[2020-12-09] MEDS: SUCRALFATE 1 GM TAB PO SCH ×4 (06:09→23:14)
[2020-12-09] MEDS: DOXYCYCLINE HYCLATE 100 MG in D5W MINI-BAG PLUS 100 ML IV SCH (06:09)
[2020-12-09 06:16] LABS: HEMATOCRIT 29.6 % (42.0-52.0); HEMOGLOBIN 9.8 g/dl (13.5-17.5); MEAN CORPUSCULAR HGB CONC 33.1 g/dl (32.0-36.5); MEAN CORPUSCULAR VOLUME 84.6 fl (80.0-96.0); WHITE BLOOD COUNT 2.5 10^3/uL (4.0-10.0)
[2020-12-09 06:23] LABS: PLATELET COUNT, AUTOMATED 85 10^3/uL (150-450)
[2020-12-09 06:34] LABS: CREATININE FOR GFR 5.07 MG/DL (0.70-1.30); GLOMERULAR FILTRATION RATE 12.6 (>56); MAGNESIUM LEVEL 1.7 MG/DL (1.8-2.4); POTASSIUM SERUM 4.2 MEQ/L (3.5-5.1)
[2020-12-09] MEDS: DRONEDARONE 400 MG TAB (MULTAQ) PO SCH ×2 (10:00→20:41)
[2020-12-09] MEDS: MAGNESIUM OXIDE 400MG TAB (MAG-OX) PO SCH (10:01)
[2020-12-09] MEDS: atenoloL 25 MG TAB PO SCH (10:01)
[2020-12-09] MEDS: ASPIRIN 81MG ENTERIC TABLET PO SCH (10:01)
[2020-12-09] MEDS: SODIUM BICARBONATE 325 MG TAB PO SCH ×2 (10:01→20:41)
[2020-12-09 10:03] VITALS: BP 90/51
[2020-12-09 12:30] VITALS: BP 91/50
[2020-12-09 13:12] LABS: B. HENSELAE IgG (CAT SCRATCH) Negative titer (Neg:<1:320); B. HENSELAE IgM (CAT SCRATCH) Negative titer (Neg:<1:100); B. QUINTANA IgG (CAT SCRATCH) Negative titer (Neg:<1:320); B. QUINTANA IgM (CAT SCRATCH) Negative titer (Neg:<1:100); TOXOPLASMA IgG ABY <3.0 IU/mL (0.0-7.1)
[2020-12-09 14:00] VITALS: BP 110/60
[2020-12-09] MEDS: cefTRIAXone SOD 2 GM in D5W MINI-BAG PLUS 50 ML IV SCH (17:04)
[2020-12-09 17:11] LABS: IMMUNOGLOBULIN A 88.8 MG/DL (70-400)
[2020-12-09] MEDS ORDERED: methylPREDNISolone 500 MG, VIAL MATE ADAPTER 1 EACH in NS 250 ML IV ONE (18:00)
[2020-12-09 22:00] VITALS: BP 106/57
[2020-12-10] MEDS: atenoloL 25 MG TAB PO SCH (05:16)
[2020-12-10] MEDS: SUCRALFATE 1 GM TAB PO SCH ×3 (05:20→18:00)
[2020-12-10] MEDS: SODIUM BICARBONATE 325 MG TAB PO SCH ×2 (05:20→20:34)
[2020-12-10] MEDS: ASPIRIN 81MG ENTERIC TABLET PO SCH (05:20)
[2020-12-10] MEDS: MAGNESIUM OXIDE 400MG TAB (MAG-OX) PO SCH (05:21)
[2020-12-10] MEDS: DRONEDARONE 400 MG TAB (MULTAQ) PO SCH ×2 (05:24→20:34)
[2020-12-10 06:00] VITALS: BP 106/62
[2020-12-10] MEDS ORDERED: methylPREDNISolone 1,000 MG, VIAL MATE ADAPTER 1 EACH in NS 250 ML IV ONE (06:50)
[2020-12-10 06:51] LABS: HEMATOCRIT 26.2 % (42.0-52.0); HEMOGLOBIN 8.7 g/dl (13.5-17.5); MEAN CORPUSCULAR HEMOGLOBIN 27.6 pg (27.0-33.0); MEAN CORPUSCULAR HGB CONC 33.2 g/dl (32.0-36.5); MEAN CORPUSCULAR VOLUME 83.2 fl (80.0-96.0); RED BLOOD COUNT 3.15 10^6/uL (4.30-6.10); WHITE BLOOD COUNT 1.6 10^3/uL (4.0-10.0)
[2020-12-10 06:53] LABS: PLATELET COUNT, AUTOMATED 81 10^3/uL (150-450)
[2020-12-10 07:49] LABS: ANISOCYTOSIS 2+; ATYPICAL LYMPH 2 % (0-5); LYMPHOCYTES 28 % (16-44); MONOCYTES 3 % (0-5); NEUTROPHILS 67 % (28-66); OVALOCYTES 1+; PLATELET ESTIMATE DECREASED (NORMAL)
[2020-12-10 09:02] LABS: ALBUMIN 1.6 GM/DL (3.2-5.2); BILIRUBIN,TOTAL 0.3 MG/DL (0.2-1.0); CALCIUM LEVEL 7.5 MG/DL (8.5-10.1); CREATININE FOR GFR 6.72 MG/DL (0.70-1.30); GLOMERULAR FILTRATION RATE 9.1 (>56); MAGNESIUM LEVEL 1.9 MG/DL (1.8-2.4); POTASSIUM SERUM 4.7 MEQ/L (3.5-5.1)
[2020-12-10 14:00] VITALS: BP 103/58
[2020-12-10 22:00] VITALS: BP 115/56
[2020-12-11] MEDS: SUCRALFATE 1 GM TAB PO SCH ×5 (00:06→23:13)
[2020-12-11 06:00] VITALS: BP 109/57
[2020-12-11 07:43] LABS: HEMATOCRIT 25.1 % (42.0-52.0); HEMOGLOBIN 8.4 g/dl (13.5-17.5); LYMPH # 0.5 10^3/uL (1.5-5.0); LYMPH % 15.6 % (24.0-44.0); MEAN CORPUSCULAR HEMOGLOBIN 27.5 pg (27.0-33.0); MEAN CORPUSCULAR HGB CONC 33.5 g/dl (32.0-36.5); MONO # 0.2 10^3/uL (0.0-0.8); MONO % 4.5 % (2.0-8.0); NEUTROPHILS # 2.7 10^3/uL (1.5-8.5); NEUTROPHILS % 79.3 % (36.0-66.0); PLATELET COUNT, AUTOMATED 100 10^3/uL (150-450); RED BLOOD COUNT 3.06 10^6/uL (4.30-6.10); WHITE BLOOD COUNT 3.3 10^3/uL (4.0-10.0)
[2020-12-11 08:12] LABS: ALBUMIN 1.8 GM/DL (3.2-5.2); BILIRUBIN,TOTAL 0.4 MG/DL (0.2-1.0); CREATININE FOR GFR 5.23 MG/DL (0.70-1.30); GLOMERULAR FILTRATION RATE 12.2 (>56); POTASSIUM SERUM 4.4 MEQ/L (3.5-5.1); TOTAL PROTEIN 7.1 GM/DL (6.4-8.2)
[2020-12-11] MEDS: atenoloL 25 MG TAB PO SCH (09:00)
[2020-12-11] MEDS: SODIUM BICARBONATE 325 MG TAB PO SCH (09:32)
[2020-12-11 09:33] VITALS: BP 105/57
[2020-12-11] MEDS: MAGNESIUM OXIDE 400MG TAB (MAG-OX) PO SCH (09:33)
[2020-12-11] MEDS: DRONEDARONE 400 MG TAB (MULTAQ) PO SCH ×2 (09:33→20:41)
[2020-12-11] MEDS ORDERED: methylPREDNISolone 1,000 MG, VIAL MATE ADAPTER 1 EACH in NS 250 ML IV ONE (11:00)
[2020-12-11] MEDS: PANTOPRAZOLE 40MG TAB (PROTONIX) PO SCH (11:50)
[2020-12-11 14:00] VITALS: BP 100/54
[2020-12-11 17:11] LABS: FREE KAPPA LIGHT CHAINS SERUM 577.3 mg/L (3.3-19.4); FREE LAMBDA LIGHT CHAINS SERUM 377.1 mg/L (5.7-26.3); KAPPA/LAMBDA RATIO SERUM 1.53 (0.26-1.65)
[2020-12-11] MEDS ORDERED: DARBEPOETIN 200MCG/0.4ML *DIALYSIS* SYRINGE (J0882 PER 1MCG) IV SCH (19:55)
[2020-12-11 22:00] VITALS: BP 113/60
[2020-12-12] VITALS (8 sets, daily range): BP systolic 100–147; BP diastolic 53–63
[2020-12-12] MEDS: SUCRALFATE 1 GM TAB PO SCH ×3 (05:25→18:34)
[2020-12-12 06:39] LABS: HEMATOCRIT 24.5 % (42.0-52.0); HEMOGLOBIN 8.1 g/dl (13.5-17.5); LYMPH # 0.5 10^3/uL (1.5-5.0); LYMPH % 14.8 % (24.0-44.0); MEAN CORPUSCULAR HEMOGLOBIN 27.6 pg (27.0-33.0); MEAN CORPUSCULAR HGB CONC 33.1 g/dl (32.0-36.5); MEAN CORPUSCULAR VOLUME 83.6 fl (80.0-96.0); MONO # 0.1 10^3/uL (0.0-0.8); MONO % 4.2 % (2.0-8.0); NEUTROPHILS # 2.7 10^3/uL (1.5-8.5); NEUTROPHILS % 79.8 % (36.0-66.0); PLATELET COUNT, AUTOMATED 113 10^3/uL (150-450); RED BLOOD COUNT 2.93 10^6/uL (4.30-6.10); WHITE BLOOD COUNT 3.4 10^3/uL (4.0-10.0)
[2020-12-12 07:01] LABS: ALBUMIN 1.7 GM/DL (3.2-5.2); BILIRUBIN,TOTAL 0.3 MG/DL (0.2-1.0); CALCIUM LEVEL 7.8 MG/DL (8.5-10.1); CREATININE FOR GFR 6.39 MG/DL (0.70-1.30); GLOMERULAR FILTRATION RATE 9.7 (>56); POTASSIUM SERUM 4.6 MEQ/L (3.5-5.1); TOTAL PROTEIN 6.6 GM/DL (6.4-8.2)
[2020-12-12] MEDS: atenoloL 25 MG TAB PO SCH (09:00)
[2020-12-12] MEDS: predniSONE 20 MG TAB PO SCH (09:26)
[2020-12-12] MEDS: CALCIUM/VITAMIN D 500 MG TAB PO SCH (09:26)
[2020-12-12] MEDS: PANTOPRAZOLE 40MG TAB (PROTONIX) PO SCH (09:27)
[2020-12-12] MEDS: DRONEDARONE 400 MG TAB (MULTAQ) PO SCH ×2 (09:27→20:07)
[2020-12-12] MEDS: MAGNESIUM OXIDE 400MG TAB (MAG-OX) PO SCH (09:27)
[2020-12-13] MEDS: SUCRALFATE 1 GM TAB PO SCH ×4 (00:19→17:40)
[2020-12-13 06:00] VITALS: BP 110/61
[2020-12-13] MEDS ORDERED: fentaNYL 100 MCG/2 ML INJECTION As Ordered ONE (07:28)
[2020-12-13] MEDS ORDERED: diphenhydrAMINE 50MG/ML VIAL (J1200) As Ordered ONE (07:28)
[2020-12-13] MEDS ORDERED: MIDAZOLAM INJ 2MG/2ML VIAL (J2250 PER 1MG) As Ordered ONE (07:28)
[2020-12-13 08:50] VITALS: BP 108/58
[2020-12-13] MEDS: atenoloL 25 MG TAB PO SCH (09:00)
[2020-12-13] MEDS: CALCIUM/VITAMIN D 500 MG TAB PO SCH (09:14)
[2020-12-13] MEDS: PANTOPRAZOLE 40MG TAB (PROTONIX) PO SCH (09:14)
[2020-12-13] MEDS: MAGNESIUM OXIDE 400MG TAB (MAG-OX) PO SCH (09:14)
[2020-12-13] MEDS: predniSONE 20 MG TAB PO SCH (09:14)
[2020-12-13] MEDS: DRONEDARONE 400 MG TAB (MULTAQ) PO SCH ×2 (09:14→20:32)
[2020-12-13 09:20] VITALS: BP 103/53
[2020-12-13 13:45] LABS: BASO % 0.3 % (0.0-1.0); HEMATOCRIT 29.6 % (42.0-52.0); HEMOGLOBIN 9.9 g/dl (13.5-17.5); LYMPH # 0.5 10^3/uL (1.5-5.0); LYMPH % 13.6 % (24.0-44.0); MEAN CORPUSCULAR HGB CONC 33.4 g/dl (32.0-36.5); MEAN CORPUSCULAR VOLUME 83.9 fl (80.0-96.0); MONO # 0.2 10^3/uL (0.0-0.8); MONO % 6.1 % (2.0-8.0); NEUTROPHILS # 2.7 10^3/uL (1.5-8.5); NEUTROPHILS % 75.5 % (36.0-66.0); PLATELET COUNT, AUTOMATED 117 10^3/uL (150-450); RED BLOOD COUNT 3.53 10^6/uL (4.30-6.10); WHITE BLOOD COUNT 3.6 10^3/uL (4.0-10.0)
[2020-12-13 14:05] LABS: ALBUMIN 1.7 GM/DL (3.2-5.2); BILIRUBIN,TOTAL 0.4 MG/DL (0.2-1.0); CALCIUM LEVEL 7.7 MG/DL (8.5-10.1); CREATININE FOR GFR 6.61 MG/DL (0.70-1.30); GLOMERULAR FILTRATION RATE 9.3 (>56); POTASSIUM SERUM 3.9 MEQ/L (3.5-5.1); TOTAL PROTEIN 6.7 GM/DL (6.4-8.2)
[2020-12-13 22:00] VITALS: BP 101/55
[2020-12-14] MEDS: SUCRALFATE 1 GM TAB PO SCH ×3 (00:11→12:59)
[2020-12-14 06:00] VITALS: BP 106/68
[2020-12-14 07:23] LABS: HEMATOCRIT 27.8 % (42.0-52.0); HEMOGLOBIN 9.3 g/dl (13.5-17.5); MEAN CORPUSCULAR HEMOGLOBIN 27.8 pg (27.0-33.0); MEAN CORPUSCULAR HGB CONC 33.5 g/dl (32.0-36.5); PLATELET COUNT, AUTOMATED 105 10^3/uL (150-450); RED BLOOD COUNT 3.35 10^6/uL (4.30-6.10); WHITE BLOOD COUNT 2.6 10^3/uL (4.0-10.0)
[2020-12-14 07:54] LABS: ALBUMIN 1.5 GM/DL (3.2-5.2); BILIRUBIN,TOTAL 0.4 MG/DL (0.2-1.0); CALCIUM LEVEL 7.6 MG/DL (8.5-10.1); CREATININE FOR GFR 5.87 MG/DL (0.70-1.30); GLOMERULAR FILTRATION RATE 10.7 (>56); POTASSIUM SERUM 4.4 MEQ/L (3.5-5.1)
[2020-12-14 07:57] LABS: ATYPICAL LYMPH 1 % (0-5); EOSINOPHILS 1 % (0-3); LYMPHOCYTES 15 % (16-44); MONOCYTES 5 % (0-5); NEUTROPHILS 78 % (28-66); PLATELET ESTIMATE NORMAL (NORMAL)
[2020-12-14] MEDS: PANTOPRAZOLE 40MG TAB (PROTONIX) PO SCH (09:38)
[2020-12-14 09:39] VITALS: BP 106/68
[2020-12-14] MEDS: predniSONE 20 MG TAB PO SCH (09:39)
[2020-12-14] MEDS: CALCIUM/VITAMIN D 500 MG TAB PO SCH (09:39)
[2020-12-14] MEDS: atenoloL 25 MG TAB PO SCH (09:39)
[2020-12-14] MEDS: MAGNESIUM OXIDE 400MG TAB (MAG-OX) PO SCH (09:39)
[2020-12-14] MEDS: DRONEDARONE 400 MG TAB (MULTAQ) PO SCH (09:39)
[2020-12-14 14:00] VITALS: BP 96/48
[2020-12-14] MEDS ORDERED: PANT40TA29 PO (15:30)
[2020-12-14] MEDS ORDERED: CALCD50TA PO (15:30)
[2020-12-14] MEDS ORDERED: PRED20TA PO (15:30)
== END 2020-12-14 17:00 | disposition home health service (06) | DRG 346 ==
LOC: M ED 17:34 → M ED INP 17:35 → ENRESERV 12-01 01:39 → M PCU 12-01 03:20 → M MSPAV 12-03 22:39
PROVIDERS: ADMIT Family Medicine; ATTEND Internal Medicine
PROC: 30233N1 Transfusion of Nonautologous Red Blood Cells into Peripheral Vein, Percutaneous Approach (ICD-10-PCS; 2020-11-30)
PROC: 07DR3ZX Extraction of Iliac Bone Marrow, Percutaneous Approach, Diagnostic (ICD-10-PCS; 2020-12-02)
PROC: 02H633Z Insertion of Infusion Device into Right Atrium, Percutaneous Approach (ICD-10-PCS; 2020-12-07)
PROC: 5A1D70Z Performance of Urinary Filtration, Intermittent, Less than 6 Hours Per Day (ICD-10-PCS; 2020-12-07)
PROC: 0JH63XZ Insertion of Tunneled Vascular Access Device into Chest Subcutaneous Tissue and Fascia, Percutaneous Approach (ICD-10-PCS; principal; 2020-12-07 10:30)
PROC: 0TB03ZX Excision of Right Kidney, Percutaneous Approach, Diagnostic (ICD-10-PCS; 2020-12-13)
DX: M31.31 Wegener's granulomatosis with renal involvement (principal); D61.818 Other pancytopenia; N17.9 Acute kidney failure, unspecified; I42.0 Dilated cardiomyopathy; I11.0 Hypertensive heart disease with heart failure; E87.2 Acidosis; R16.2 Hepatomegaly with splenomegaly, not elsewhere classified; I50.42 Chronic combined systolic (congestive) and diastolic (congestive) heart failure; N04.A Nephrotic syndrome with C3 glomerulonephritis; E87.5 Hyperkalemia; E88.09 Other disorders of plasma-protein metabolism, not elsewhere classified; I77.89 Other specified disorders of arteries and arterioles; G47.33 Obstructive sleep apnea (adult) (pediatric); I87.2 Venous insufficiency (chronic) (peripheral); M81.0 Age-related osteoporosis without current pathological fracture; R63.4 Abnormal weight loss; E66.9 Obesity, unspecified; E78.2 Mixed hyperlipidemia; R19.7 Diarrhea, unspecified; D63.8 Anemia in other chronic diseases classified elsewhere; Z95.3 Presence of xenogenic heart valve; Z20.822 Contact with and (suspected) exposure to COVID-19; Z79.52 Long term (current) use of systemic steroids; Z79.899 Other long term (current) drug therapy

== ENCOUNTER → 2020-11-30 | Outpatient (REF) | payer OTHER, MEDICAID ==
[~2020-11-30] MED LIST changes: +ATEN25TA; +ATEN25TA PO; +ATOR40TA75; +ATOR40TA75 PO; +DRON400T; +DRON400T PO; +ENAL1TAB46
[2020-11-30 16:01] LABS: APPEARANCE, URINE CLOUDY (CLEAR); BACTERIA, URINE AUTO 1+ (NEGATIVE); BILIRUBIN, URINE AUTO NEGATIVE (NEGATIVE); BLOOD, URINE BLOOD 3+ (NEGATIVE); COLOR, URINE YELLOW (YELLOW); GLUCOSE, URINE (UA) AUTO NEGATIVE (NEGATIVE); KETONE, URINE AUTO NEGATIVE (NEGATIVE); LEUKOCYTE ESTERASE, URINE AUTO NEGATIVE (NEGATIVE); MUCUS, URINE SMALL (NEGATIVE); NITRITE, URINE AUTO NEGATIVE (NEGATIVE); PROTEIN, URINE AUTO 2+ mg/dL (NEGATIVE); RBC, URINE AUTO TNTC /HPF (0-3); SPECIFIC GRAVITY URINE AUTO 1.012 (1.002-1.035); SQUAMOUS EPITHELIAL CELL UR AU 3 /HPF (0-6); UROBILINOGEN, URINE AUTO 0.2 mg/dL (0.0-2.0); WBC, URINE AUTO 13 /HPF (0-3)
[2020-11-30 16:34] LABS: BASO % 0.7 % (0.0-1.0); EOS % 0.7 % (0.0-3.0); HEMATOCRIT 24.8 % (42.0-52.0); HEMOGLOBIN 7.8 g/dl (13.5-17.5); LYMPH # 1.1 10^3/uL (1.5-5.0); LYMPH % 36.2 % (24.0-44.0); MEAN CORPUSCULAR HEMOGLOBIN 26.8 pg (27.0-33.0); MEAN CORPUSCULAR HGB CONC 31.5 g/dl (32.0-36.5); MEAN CORPUSCULAR VOLUME 85.2 fl (80.0-96.0); MONO # 0.2 10^3/uL (0.0-0.8); MONO % 7.7 % (2.0-8.0); NEUTROPHILS # 1.6 10^3/uL (1.5-8.5); PLATELET COUNT, AUTOMATED 105 10^3/uL (150-450); RED BLOOD COUNT 2.91 10^6/uL (4.30-6.10)
[2020-11-30 16:48] LABS: ALBUMIN 2.7 GM/DL (3.2-5.2); BILIRUBIN,TOTAL 0.5 MG/DL (0.2-1.0); CALCIUM LEVEL 8.4 MG/DL (8.5-10.1); CREATININE FOR GFR 6.42 MG/DL (0.70-1.30); GLOMERULAR FILTRATION RATE 9.6 (>56); POTASSIUM SERUM 6.5 MEQ/L (3.5-5.1); THYROID STIMULATING HORMONE 3.83 uIU/ML (0.358-3.740); TOTAL PROTEIN 8.9 GM/DL (6.4-8.2)
== END ==
LOC: M SFHCCAPE 12:02
PROVIDERS: ATTEND Physician Assistant
DX: R19.7 Diarrhea, unspecified (principal); R63.4 Abnormal weight loss

== ENCOUNTER → 2020-11-30 | Outpatient (CLI) | payer MEDICAID, OTHER ==
[~2020-11-30] MED LIST changes: +GASTROGRAFIN SOLUTION 30ML (Q9963) As Ordered ONE; +ISOVUE-370 76% 100ML VIAL As Ordered ONE
--- NOTE | 2020-11-30 18:01 | REPVR ---
PROCEDURE INFORMATION: Exam: CT Abdomen And Pelvis Without Contrast Exam date and time: 11/30/2020 4:56 PM Age: 55 years old Clinical indication: Other: Diarrhea, weight loss, abd pain, llq pain; Patient HX: Creat 6.42 no iv contrast TECHNIQUE: Imaging protocol: Computed tomography of the abdomen and pelvis without contrast. Radiation optimization: All CT scans at this facility use at least one of these dose optimization techniques: automated exposure control; mA and/or kV adjustment per patient size (includes targeted exams where dose is matched to clinical indication); or iterative reconstruction. COMPARISON: MRI ABD W/O FOL WITH 07/14/2020 12:19 PM FINDINGS: Lungs: No suspicious mass or airspace process in the visualized lung bases. Liver: Noncontrast liver is enlarged but shows no obvious lesion. Gallbladder and bile ducts: Gallstones are present in the gallbladder lumen. No adjacent fluid or duct dilatation. Pancreas: Noncontrast pancreas shows no obvious mass or adjacent fluid. Spleen: Spleen is diffusely enlarged, without focal lesion. Adrenal glands: Adrenal glands are normal in appearance. Kidneys and ureters: Kidneys show no stone or hydronephrosis. Stomach and bowel: No evidence of small bowel obstruction. Terminal ileum has normal appearance. Diverticular changes are present within the colon without inflammation. Appendix: Normal caliber appendix is identified, with no adjacent inflammation. Intraperitoneal space: No pneumoperitoneum. Vasculature: Lower pole 6 cm simple fluid density left renal cyst.No aortic aneurysm. Lymph nodes: Prominent periportal lymph nodes measure up to 13 mm short axis. Urinary bladder: Bladder is under distended, giving it a somewhat thick-walled appearance. Reproductive: Dystrophic prostate calcifications are noted. Bones/joints: Bony structures are normal except for lumbar spine degenerative disc changes. Soft tissues: Bilateral fat-containing inguinal hernias are present. IMPRESSION: 1. No evidence of obstructive uropathy or other explanation for elevated creatinine. Bladder does appear somewhat thick-walled but is under distended. Correlation with urinalysis is recommended. 2. Hepatosplenomegaly and nonspecific mildly prominent upper mediastinal adenopathy COMMENTS: Consistent with the [employer]'s Incidental Findings Committee white paper (J Am Hollie Radiol 2018): Any incidental renal lesion less than 1 cm or classified as too small to characterize, or any incidental cystic renal lesion characterized as simple-appearing, is likely benign. No follow-up imaging is recommended for these lesions per consensus recommendations based on imaging criteria. Electronically signed by: Edward Bellamy On 11/30/2020 18:01:14 PM
== END ==
LOC: M RAD 14:50
PROVIDERS: ATTEND Physician Assistant
DX: R19.7 Diarrhea, unspecified (principal); R10.814 Left lower quadrant abdominal tenderness; R63.4 Abnormal weight loss
CPT/HCPCS: 74176; Q9963

== ENCOUNTER → 2021-01-03 | Outpatient (CLI) | payer OTHER ==
[~2021-01-03] MED LIST changes: +ATEN25TA; +ATEN25TA PO; +ATOR40TA75; +ATOR40TA75 PO; +CALCD50TA PO; +DRON400T; +DRON400T PO; +ENAL1TAB46; +PANT40TA29 PO; +PRED20TA PO
[2021-01-03 18:11] LABS: BASO % 0.5 % (0.0-1.0); EOS % 0.5 % (0.0-3.0); HEMATOCRIT 23.2 % (42.0-52.0); HEMOGLOBIN 7.6 g/dl (13.5-17.5); LYMPH # 0.7 10^3/uL (1.5-5.0); LYMPH % 33.3 % (24.0-44.0); MEAN CORPUSCULAR HEMOGLOBIN 27.8 pg (27.0-33.0); MEAN CORPUSCULAR HGB CONC 32.8 g/dl (32.0-36.5); MONO # 0.1 10^3/uL (0.0-0.8); MONO % 6.5 % (2.0-8.0); NEUTROPHILS # 1.2 10^3/uL (1.5-8.5); NEUTROPHILS % 57.7 % (36.0-66.0); PLATELET COUNT, AUTOMATED 107 10^3/uL (150-450); RED BLOOD COUNT 2.73 10^6/uL (4.30-6.10)
[2021-01-03 19:02] LABS: ALBUMIN 2.1 GM/DL (3.2-5.2); BILIRUBIN,TOTAL 0.7 MG/DL (0.2-1.0); CALCIUM LEVEL 7.7 MG/DL (8.5-10.1); CREATININE FOR GFR 7.76 MG/DL (0.70-1.30); FOLATE 3.1 NG/ML (>5.4); GLOMERULAR FILTRATION RATE 7.7 (>56); PERCENT SATURATION 22.5 % (19.7-50.0); POTASSIUM SERUM 4.3 MEQ/L (3.5-5.1); TOTAL PROTEIN 6.7 GM/DL (6.4-8.2)
== END ==
LOC: M LAB 15:22
PROVIDERS: ATTEND Internal Medicine Medical Oncology
DX: D61.818 Other pancytopenia (principal)

== ENCOUNTER → 2021-01-06 | Outpatient (CLI) | payer OTHER | LOC: M LAB 10:24 | PROVIDERS: ATTEND Internal Medicine Nephrology | DX: D61.818 Other pancytopenia (principal) ==

== ENCOUNTER 2021-01-07 10:26 | Outpatient (CLI) | payer OTHER ==
[~2021-01-07] VITALS: Ht 170.2 cm; Wt 93.1 kg
[2021-01-07] VITALS (7 sets, daily range): BP systolic 102–122; BP diastolic 60–72
[2021-01-07] MEDS ORDERED: diphenhydrAMINE 25MG CAP PO ONE (10:30)
[2021-01-07] MEDS ORDERED: ACETAMINOPHEN 325 MG TAB PO ONE (10:30)
== END 2021-01-07 16:00 | disposition home or self-care (01) ==
LOC: M INFU 10:26
PROVIDERS: ATTEND Internal Medicine Nephrology
DX: D61.818 Other pancytopenia (principal)
CPT/HCPCS: 36430; P9016

== ENCOUNTER 2021-01-17 08:14 | Outpatient (CLI) | payer OTHER ==
[2021-01-17] VITALS (8 sets, daily range): BP systolic 107–132; BP diastolic 58–76
[~2021-01-17] VITALS: Ht 170.2 cm; Wt 91.8 kg
[~2021-01-17 08:14] MED LIST changes: +ACETAMINOPHEN 650 MG PO PO ONE; +ALBUTEROL SULFATE 2.5 MG/0.5 ML INH NEB SOLN INH PRN; +EPINEPHrine INJ 1 MG/ML 1ML AMP IM PRN; +NS 1,000 ML IV ONE; +diphenhydrAMINE 25 MG IV IV ONE; +diphenhydrAMINE 50MG/ML VIAL (J1200) IV PRN; +methylPREDNISolone 125MG 2ML VIAL IV ONE; +methylPREDNISolone 125MG 2ML VIAL IV PRN; +riTUXimab (INITIAL INFUSION) IV ONE
== END 2021-01-17 12:45 | disposition home or self-care (01) ==
LOC: M INFU 08:14
PROVIDERS: ATTEND Internal Medicine Nephrology
DX: D61.818 Other pancytopenia (principal); N17.9 Acute kidney failure, unspecified
CPT/HCPCS: 96375; 96413; 96415; J1200; J2930; J9312

== ENCOUNTER 2021-01-24 09:22 | Outpatient (CLI) | payer OTHER ==
[~2021-01-24] VITALS: Ht 170.2 cm; Wt 91.8 kg
[~2021-01-24 09:22] MED LIST changes: -ACETAMINOPHEN 650 MG PO PO ONE; +ACETAMINOPHEN TAB 650MG DOSE (2X325MG) PO ONE; -NS 1,000 ML IV ONE; +NS 1,000 ML IV SCH; -diphenhydrAMINE 25 MG IV IV ONE; +diphenhydrAMINE 50MG/ML VIAL (J1200) IV ONE; -riTUXimab (INITIAL INFUSION) IV ONE; +riTUXimab 500 MG in NS 450 ML IV ONE
[2021-01-24 09:25] VITALS: BP 109/68
[2021-01-24 11:30] VITALS: BP 105/55
[2021-01-24 11:50] VITALS: BP 98/68
[2021-01-24 12:00] VITALS: BP 103/60
[2021-01-24 12:30] VITALS: BP 116/59
== END 2021-01-24 12:50 | disposition home or self-care (01) ==
LOC: M INFU 09:22
PROVIDERS: ATTEND Internal Medicine Nephrology
DX: D61.818 Other pancytopenia (principal); N17.9 Acute kidney failure, unspecified
CPT/HCPCS: 96375; 96413; 96415; J1200; J2930; J9312

== ENCOUNTER 2021-01-31 08:41 | Outpatient (CLI) | payer OTHER ==
[~2021-01-31] VITALS: Ht 170.2 cm; Wt 91.6 kg
[~2021-01-31 08:41] MED LIST changes: -NS 1,000 ML IV SCH
[2021-01-31 08:58] VITALS: BP 111/61
[2021-01-31 10:30] VITALS: BP 118/66
[2021-01-31 11:00] VITALS: BP 94/57
[2021-01-31 11:30] VITALS: BP 99/63
[2021-01-31 12:28] VITALS: BP 120/83
== END 2021-01-31 12:20 | disposition home or self-care (01) ==
LOC: M INFU 08:41
PROVIDERS: ATTEND Internal Medicine Nephrology
DX: D61.818 Other pancytopenia (principal); N17.9 Acute kidney failure, unspecified
CPT/HCPCS: 96375; 96413; 96415; J1200; J2930; J9312

== ENCOUNTER 2021-02-02 09:51 | Emergency (ER) | payer OTHER ==
[~2021-02-02] VITALS: Ht 170.2 cm; Wt 87.3 kg
[~2021-02-02 09:51] MED LIST changes: -ACETAMINOPHEN TAB 650MG DOSE (2X325MG) PO ONE; -ALBUTEROL SULFATE 2.5 MG/0.5 ML INH NEB SOLN INH PRN; -EPINEPHrine INJ 1 MG/ML 1ML AMP IM PRN; -diphenhydrAMINE 50MG/ML VIAL (J1200) IV ONE; -diphenhydrAMINE 50MG/ML VIAL (J1200) IV PRN; -methylPREDNISolone 125MG 2ML VIAL IV ONE; -methylPREDNISolone 125MG 2ML VIAL IV PRN; -riTUXimab 500 MG in NS 450 ML IV ONE
[2021-02-02 10:45] LABS: VENOUS BASE EXCESS 1.8 (-2.0-2.0); VENOUS O2 SATURATION 51.8 % (60.0-80.0); VENOUS PARTIAL PRESSURE CO2 38.8 mmHg (38.0-50.0); VENOUS PH 7.444 UNITS (7.330-7.430); VENOUS STANDARD HCO3 25.4 MEQ/L; VENOUS TOTAL CO2 27.2 MEQ/L (24.0-28.0)
[2021-02-02 10:55] LABS: BASO % 0.5 % (0.0-1.0); HEMATOCRIT 24.3 % (42.0-52.0); HEMOGLOBIN 7.9 g/dl (13.5-17.5); LYMPH # 0.6 10^3/uL (1.5-5.0); LYMPH % 15.8 % (24.0-44.0); MEAN CORPUSCULAR HEMOGLOBIN 29.4 pg (27.0-33.0); MEAN CORPUSCULAR HGB CONC 32.5 g/dl (32.0-36.5); MEAN CORPUSCULAR VOLUME 90.3 fl (80.0-96.0); MONO # 0.2 10^3/uL (0.0-0.8); MONO % 4.7 % (2.0-8.0); NEUTROPHILS % 77.4 % (36.0-66.0); PLATELET COUNT, AUTOMATED 127 10^3/uL (150-450); RED BLOOD COUNT 2.69 10^6/uL (4.30-6.10); WHITE BLOOD COUNT 3.9 10^3/uL (4.0-10.0)
--- NOTE | 2021-02-02 11:06 | REP ---
INDICATION: DYSPNEA/COUGH. COMPARISON: 06/15/2020 TECHNIQUE: Portable FINDINGS: The technique utilized in obtaining the radiograph has magnified the cardiac silhouette and accentuated the interstitial markings. There is cardiomegaly accentuated by technique. There is a double lumen central venous catheter the tip of which is in the superior vena cava. Patchy bilateral lung field opacities have developed since the last exam and seen particularly in the lung bases. There is bilateral CP angle blunting. There is no change in the osseous structures. Note is again made of previous median sternotomy. IMPRESSION: Lung field opacities and small pleural effusions pneumonia versus pulmonary edema. <Electronically signed by Nicanor Franco > 02/02/21 1103
[2021-02-02 11:28] LABS: ALBUMIN 2.3 GM/DL (3.2-5.2); BILIRUBIN,DIRECT 0.4 MG/DL (0.0-0.2); BILIRUBIN,TOTAL 1.1 MG/DL (0.2-1.0); CALCIUM LEVEL 7.7 MG/DL (8.5-10.1); CREATININE FOR GFR 5.25 MG/DL (0.70-1.30); GLOMERULAR FILTRATION RATE 12.1 (>56); POTASSIUM SERUM 3.6 MEQ/L (3.5-5.1); TOTAL PROTEIN 6.5 GM/DL (6.4-8.2)
--- NOTE | 2021-02-02 12:37 | REP ---
INDICATION: sob COMPARISON: Multiple the latest 12/06/2020 also without contrast TECHNIQUE: Standard helical technique without intravenous contrast FINDINGS: There is been an increase in the appearance of the poorly imaged mediastinal and hilar adenopathy since no contrast was administered. There are new small to moderate bilateral pleural effusions. There is four-chamber cardiac enlargement without evidence of a pericardial effusion. There is no significant change in appearance of the imaged upper abdomen with the exception of a small amount of free fluid seen along the posterior right hepatic edge. There is no significant change in appearance of the imaged osseous structures. Evaluation of the lung horner shows new areas of loculated pleural fluid throughout the right lower lobe region. There is evidence of significant vascular engorgement and increased interstitial markings throughout the lung horner. Numerous patchy interstitial and airspace opacities are identified. This all represents a change compared to the prior exam. IMPRESSION: 1. There is evidence of mediastinal and probable hilar adenopathy but difficult to evaluate without intravenous contrast administration. 2. Bilateral pleural effusions with evidence of loculation on the right as described above. 3. Vascular engorgement with interstitial edema and patchy lung field opacities likely secondary to CHF. Concomitant pneumonia cannot be ruled out. 4. Other findings as described above. <Electronically signed by Nicanor Franco > 02/02/21 1145
--- OUTSIDE RECORDS SUMMARY | 2021-02-02 14:09 | CCD ---
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 Activ e confirmed 266013814 Problem Lightheadedness R42 Active confirmed 3867 43733 Problem Prostate cancer screening Z12.5 Active confirmed 608550012 Problem Mixed hyperlipidemia E78.2 Active confirmed 836368022 Problem Sleep disorder, unspecified G47.9 Active confirmed 35350693 Problem 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 Active confi rmed 29641594 Problem Syncopal episodes R55 Active confirmed 27 3806562 Problem Morbid obesity due to excess calories E66.01 Ac tive confirmed 152583403 Problem Venous insufficiency I87.2 Active confirmed 08338418 Problem Atypical atrial flutter I48.4 Active confirmed 44144645653055154 Problem BMI 38.0-38.9,adult Z68.38 Active confirmed 618655563 Problem Nonrheumatic aortic (valve) stenosis I35.0 Act marquis confirmed 827318330 Problem Dilated cardiomyopathy I42.0 Active confirmed 535914006 Problem Primary osteoarthritis, 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 Active confirmed 418710355 Problem Primary osteoarthritis, 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 71 Active confirmed 504592972 Problem Pancytopenia D61.818 Active confirmed 421571 005 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 540288965 Problem PVD (peripheral vascular disease) I73.9 Active confirmed 481492378 Problem Iron deficiency anemia, unspecified iron deficiency an emia type D50.9 Active confirmed 23107180 Problem Hyperlipidemia E78.5 Active confirmed 00987 004 Problem Cardiomyopathy I42.9 Active confirmed 28152 001 Problem 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 Active confirmed 53069441 Problem 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 Active confirmed 07422265 Problem Hypocomplementemia D84.1 Active confirmed 2 4479576 Problem 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 Active confirmed 996686022 ALLERGIES No Known Allergies ENCOUNTERS from 1965 to 2021-01-25 Encounter Location Date Provider Diagnosis [facility] Rheumatology [address] [place] [address] [place] [address] Jan, [facility] IMMUNIZATIONS Vaccine Route Administration Date Status Influenza 18 yrs & older Flublok IM Intramuscular Dec 10, 2019 Administered Pneumococcal Adult 0.5mL Pneumovax 23 IM Intramuscular Mar 11 Administered TDAP 0.5mL (Boostrix) IM Intramuscular Mar 11, 2020 Administe red SOCIAL HISTORY Tobacco Use: Social History Observation Description Date Details (start date - stop date) Never Smoker Sex Assigned At : Social History Observation Description Sex Assigned At Unknown Education: Question Answer Notes Level of Education: Finished High School Sexual Hx: Question Answer Notes Had sex in the last 12 months (vaginal, oral, or anal)? No Have you ever had an STD? No Alcohol Screening: Question Answer Notes Did you have a drink containing alcohol in the past year? No Points 0 Interpretation Negative BMI Care Goal Follow-Up Question Answer Notes Above Normal BMI Follow-Up Dietary management educatio n, guidance, and counseling Tobacco Use: Question Answer Notes Are you a: never smoker REASON FOR REFERRAL No Information VITAL SIGNS No information MEDICATIONS Medication SIG (Take, Route, Frequency, Duration) Notes Start Da te End Date Status predniSONE 10 MG 3 tablet Oral Once a day for 30 days 2020 Active Enalapril 5 mg one tab orally Once daily Active predniSONE 20 MG 2 tablets Orally Daily for 5 days Dec, Active Multaq 400 MG 1 tablet with meals Orally Twice a day Active Simvastatin 40 40mg 1 tab(s) oral Once daily Active PROCEDURES No Information RESULTS No Results REASON FOR VISIT RESCHEDULED MEDICAL (GENERAL) HISTORY Type Description Date Medical History Hypertension Medical History Mixed Hyperlipidemia Medical History 10/26/15 Cardiac Ablasion Medical History Venous insufficiency Medical History Atrial flutter Medical History Dilated cardiomyopathy Medical History Systolic and diastolic congestive heart failure Medical History Aortic valve disease status post aVR bio prosthetic Medical History Obesity Surgical History Heart valve replaced - [facility] 2009 Surgical History Cardiac Ablation 10/2015 Hospitalization History [facility] Surgery 2009 Goals Section No Information Health Concerns No Information MEDICAL EQUIPMENT No Information MENTAL STATUS No Information FUNCTIONAL STATUS No Information ASSESSMENTS No Information PLAN OF TREATMENT Medication Medication Name Sig Start Date Stop Date predniSONE 10 MG 3 tablet Oral Once a day for 30 days Dec, Next Appt Details Provider Name:Yanni Kwok, 2021-01-25 11:45:00 AM, [address] [place] [address], , [place], [place], [facility], Insurance Providers Payer Name Payer Address Payer Phone Insured Name Patient Relati onship to Insured Coverage Start Date Coverage End Date [employer] DEPT [address] [employer] [phone] KARLA TAPIA self MEDICAID [id number] [address] [facility] [id number] KARLA TAPIA self
--- OUTSIDE RECORDS SUMMARY | 2021-02-02 14:09 | CCD ---
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 Activ e confirmed 471060656 Problem Lightheadedness R42 Active confirmed 3867 47971 Problem Prostate cancer screening Z12.5 Active confirmed 053937118 Problem Mixed hyperlipidemia E78.2 Active confirmed 712630847 Problem Sleep disorder, unspecified G47.9 Active confirmed 91411790 Problem 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 Active confi rmed 37724258 Problem Syncopal episodes R55 Active confirmed 27 8036318 Problem Morbid obesity due to excess calories E66.01 Ac tive confirmed 077874743 Problem Venous insufficiency I87.2 Active confirmed 60088187 Problem Atypical atrial flutter I48.4 Active confirmed 84148828521050591 Problem BMI 38.0-38.9,adult Z68.38 Active confirmed 622633320 Problem Nonrheumatic aortic (valve) stenosis I35.0 Act marquis confirmed 171707551 Problem Dilated cardiomyopathy I42.0 Active confirmed 599098157 Problem Primary osteoarthritis, 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 Active confirmed 336755658 Problem Primary osteoarthritis, 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 71 Active confirmed 676294393 Problem Pancytopenia D61.818 Active confirmed 784681 005 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 940600562 Problem PVD (peripheral vascular disease) I73.9 Active confirmed 082862775 Problem Iron deficiency anemia, unspecified iron deficiency an emia type D50.9 Active confirmed 83383459 Problem Hyperlipidemia E78.5 Active confirmed 01332 004 Problem Cardiomyopathy I42.9 Active confirmed 02748 001 Problem 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 IMMUNIZATIONS Vaccine Route Administration Date Status Influenza 18 yrs & older Flublok IM Intramuscular Dec 10, 2019 Administered Pneumococcal Adult 0.5mL Pneumovax 23 IM Intramuscular Mar 11 021 Administered TDAP 0.5mL (Boostrix) IM Intramuscular Mar [...] Notes Start Da te End Date Status Simvastatin 40 40mg 1 tab(s) oral Once daily Active predniSONE 20 MG 2 tablets Orally Daily for 5 days Dec, Active Enalapril 5 mg one tab orally Once daily Active predniSONE 10 MG 3 tablet Oral Once a day for 30 days Active Multaq 400 MG 1 tablet with meals Orally Twice a day Active PROCEDURES No Information RESULTS No Results REASON FOR VISIT APPT CHANGE: PLEASE ADVISE MEDICAL (GENERAL) HISTORY Type Description Date Medical History Hypertension Medical History Mixed Hyperlipidemia Medical History 10/26/15 Cardiac Ablasion Medical History Venous insufficiency Medical History Atrial flutter Medical History Dilated cardiomyopathy Medical History Systolic and diastolic congestive heart failure Medical History Aortic valve disease status post aVR bio prosthetic Medical History Obesity Surgical History Heart valve replaced - [facility] 2009 Surgical History Cardiac Ablation 10/2015 Hospitalization History [facility] Surgery 2010 Goals Section No Information Health Concerns No Information MEDICAL EQUIPMENT No Information MENTAL STATUS No Information FUNCTIONAL STATUS No Information ASSESSMENTS No Information PLAN OF TREATMENT Medication Medication Name Sig Start Date Stop Date predniSONE 10 MG 3 tablet Oral Once a day for 30 days Next Appt Details Provider Name:Yanni Kwok, 2021-02-03 07:45:00 AM, [address] [place] [address], , [place], [place], [facility], Insurance Providers Payer Name Payer Address Payer Phone Insured Name Patient Relati onship to Insured Coverage Start Date Coverage End Date MEDICAID [employer] [address] [facility] [id number] KARLA TAPIA self [employer] [address] [facility] [phone] KARLA TAPIA self
--- OUTSIDE RECORDS SUMMARY | 2021-02-02 14:09 | CCD ---
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 Activ e confirmed 998750274 Problem Prostate cancer screening Z12.5 Active confirmed 680583476 Problem Sleep disorder, unspecified G47.9 Active confirmed 73876371 Problem Nonrheumatic aortic (valve) stenosis I35.0 Act marquis confirmed 148578490 Problem Syncopal episodes R55 Active confirmed 27 1803495 Problem PVD (peripheral vascular disease) I73.9 Active confirmed 832718206 Problem Venous insufficiency I87.2 Active confirmed 22376743 Problem 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 Active confi rmed 59057963 Problem BMI 38.0-38.9,adult Z68.38 Active confirmed 137758674 Problem Morbid obesity due to excess calories E66.01 Ac tive confirmed 950318033 Problem Dilated cardiomyopathy I42.0 Active confirmed 234693601 Problem Atypical atrial flutter I48.4 Active confirmed 65137931658583288 Problem Mixed hyperlipidemia E78.2 Active confirmed 385722249 Problem Primary osteoarthritis, 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 Active confirmed 873191651 Problem Primary osteoarthritis, 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 71 Active confirmed 567838876 Problem 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 Active confirmed 141104637 Problem Lightheadedness R42 Active confirmed 3864 07644 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 808862062 Problem Cardiomyopathy I42.9 Active confirmed 42126 001 Problem Hyperlipidemia E78.5 Active confirmed 67085 004 Problem Pancytopenia D61.818 Active confirmed 233943 005 Problem 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 Active confirmed 54219908 Problem 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 Active confirmed 60444175 Problem Hypocomplementemia D84.1 Active confirmed 2 1485812 ALLERGIES No Known Allergies ENCOUNTERS from 1965 to 2021-01-21 Encounter Location Date Provider Diagnosis [facility] Rheumatology 9 [facility] [phone] [place] [address] Jan, [facility] IMMUNIZATIONS Vaccine Route Administration Date Status [...] Information RESULTS No Results REASON FOR VISIT infusion apt and 10:15 apt MEDICAL (GENERAL) HISTORY Type Description Date Medical History Hypertension Medical History Mixed Hyperlipidemia Medical History 10/26/15 Cardiac Ablasion Medical History Venous insufficiency Medical History Atrial flutter Medical History Dilated cardiomyopathy Medical History Systolic and diastolic congestive heart failure Medical History Aortic valve disease status post aVR bio prosthetic Medical History Obesity Surgical History Heart valve replaced - [facility] 2009 Surgical History Cardiac Ablation 10/2015 Hospitalization History [facility] Surgery 2009 Goals Section No Information Health Concerns No Information MEDICAL EQUIPMENT No Information MENTAL STATUS No Information FUNCTIONAL STATUS No Information ASSESSMENTS No Information PLAN OF TREATMENT Medication Medication Name Sig Start Date Stop Date predniSONE 10 MG 3 tablet Oral Once a day for 30 days Dec, Next Appt Details Provider Name:Yannidiamond Kwok, 2021-01-24 10:15:00 AM, [address] [place] [address], , [place], [place], [facility], Insurance Providers Payer Name Payer Address Payer Phone Insured Name Patient Relati onship to Insured Coverage Start Date Coverage End Date MEDICAID [place] [address] [facility] [address] KARLA TAPIA self [facility] CORPORATE CLAIMS DEPT [address] [facility] [phone] KARLA TAPIA self
--- OUTSIDE RECORDS SUMMARY | 2021-02-02 14:09 | CCD ---
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 Activ e confirmed 739791377 Problem Prostate cancer screening Z12.5 Active confirmed 155450728 Problem Sleep disorder, unspecified G47.9 Active confirmed 91600168 Problem Nonrheumatic aortic (valve) stenosis I35.0 Act marquis confirmed 349175744 Problem Syncopal episodes R55 Active confirmed 27 7540420 Problem PVD (peripheral vascular disease) I73.9 Active confirmed 433745748 Problem Venous insufficiency I87.2 Active confirmed 47902165 Problem 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 Active confi rmed 27881483 Problem BMI 38.0-38.9,adult Z68.38 Active confirmed 879801248 Problem Morbid obesity due to excess calories E66.01 Ac tive confirmed 463679378 Problem Dilated cardiomyopathy I42.0 Active confirmed 114275161 Problem Atypical atrial flutter I48.4 Active confirmed 77688319227296678 Problem Mixed hyperlipidemia E78.2 Active confirmed 266952790 Problem Primary osteoarthritis, 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 Active confirmed 169200043 Problem Primary osteoarthritis, 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 71 Active confirmed 496074245 Problem 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 Active confirmed 341479212 Problem Lightheadedness R42 Active confirmed 3862 47885 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 829568178 Problem Cardiomyopathy I42.9 Active confirmed 42635 001 Problem Hyperlipidemia E78.5 Active confirmed 17014 004 Problem Pancytopenia D61.818 Active confirmed 706608 005 Problem 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 Active confirmed 10393479 Problem 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 Active confirmed 54974550 Problem Hypocomplementemia D84.1 Active confirmed 2 4602565 ALLERGIES No Known Allergies ENCOUNTERS from 1965 to 2020-12-30 Encounter Location Date Provider Diagnosis [address] [phone] [place] [address] 13 Dec, 2020 Bev Lara IMMUNIZATIONS Vaccine Route Administration Date Status Influenza [...] Information RESULTS No Results REASON FOR VISIT lab orders MEDICAL (GENERAL) HISTORY Type Description Date Medical History Hypertension Medical History Mixed Hyperlipidemia Medical History 10/26/15 Cardiac Ablasion Medical History Venous insufficiency Medical History Atrial flutter Medical History Dilated cardiomyopathy Medical History Systolic and diastolic congestive heart failure Medical History Aortic valve disease status post aVR bio prosthetic Medical History Obesity Surgical History Heart valve replaced - [facility] 2009 Surgical History Cardiac Ablation 10/2015 Hospitalization History [facility] Surgery 2010 Goals Section No Information Health Concerns No Information MEDICAL EQUIPMENT No Information MENTAL STATUS No Information FUNCTIONAL STATUS No Information ASSESSMENTS No Information PLAN OF TREATMENT Medication Medication Name Sig Start Date Stop Date predniSONE 10 MG 3 tablet Oral Once a day for 30 days Dec, Next Appt Details Provider Name:Yannidiamond Kwok, 2021-01-24 10:15:00 AM, [address] [place] [address], , [place], [place], [facility], Insurance Providers Payer Name Payer Address Payer Phone Insured Name Patient Relati onship to Insured Coverage Start Date Coverage End Date [facility] CORPORATE CLAIMS DEPT [address] [facility] [phone] [facility] [address] [facility] [id number] KARLA TAPIA self
--- OUTSIDE RECORDS SUMMARY | 2021-02-02 14:09 | CCD ---
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 Activ e confirmed 894694863 Problem Prostate cancer screening Z12.5 Active confirmed 172378657 Problem Sleep disorder, unspecified G47.9 Active confirmed 73936307 Problem Nonrheumatic aortic (valve) stenosis I35.0 Act marquis confirmed 324092762 Problem Syncopal episodes R55 Active confirmed 27 6833071 Problem PVD (peripheral vascular disease) I73.9 Active confirmed 859767256 Problem Venous insufficiency I87.2 Active confirmed 70264770 Problem 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 Active confi rmed 35623278 Problem BMI 38.0-38.9,adult Z68.38 Active confirmed 036271352 Problem Morbid obesity due to excess calories E66.01 Ac tive confirmed 241823385 Problem Dilated cardiomyopathy I42.0 Active confirmed 852339359 Problem Atypical atrial flutter I48.4 Active confirmed 10078601861931939 Problem Mixed hyperlipidemia E78.2 Active confirmed 807730162 Problem Primary osteoarthritis, 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 Active confirmed 929642113 Problem Primary osteoarthritis, 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 71 Active confirmed 669423616 Problem 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 Active confirmed 631975792 Problem Lightheadedness R42 Active confirmed 3868 14853 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 936864207 Problem Cardiomyopathy I42.9 Active confirmed 65344 001 Problem Hyperlipidemia E78.5 Active confirmed 86354 004 Problem Pancytopenia D61.818 Active confirmed 342302 005 Problem 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 Active confirmed 94855881 Problem 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 Active confirmed 03517278 Problem Hypocomplementemia D84.1 Active confirmed 2 9908775 ALLERGIES No Known Allergies ENCOUNTERS from 1965 to 2021-01-03 Encounter Location Date Provider Diagnosis [address] [phone] [place] [address] Dec, [facility] discharge f ollow-up Z09 ; Acute renal failure, unspecified acute renal failure type N17.9 and Pancytopenia D61.818 IMMUNIZATIONS Vaccine Route Administration Date Status Influenza [...] REASON FOR REFERRAL No Information VITAL SIGNS Weight 200 lbs Dec, Weight-kg 90.72 kg Dec, Height 67 in Dec, BMI 31.32 kg/m2 Dec, Heart Rate 63 /min Dec, Respiratory Rate 16 /min Dec, Temperature 97.8 degrees Fahrenheit Dec, Oximetry 99% on RA Dec, Blood pressure systolic 108 mm Hg Dec, Blood pressure diastolic 66 mm Hg Dec, MEDICATIONS Medication SIG (Take, Route, Frequency, Duration) Notes Start Da te End Date Status predniSONE 10 MG 3 tablet Oral Once a day for 30 days 21 2020 Active Enalapril 5 mg one tab orally Once daily Active predniSONE 20 MG 2 tablets Orally Daily for 5 days Dec, Active Multaq 400 MG 1 tablet with meals Orally Twice a day Active Simvastatin 40 40mg 1 tab(s) oral Once daily Active PROCEDURES No Information RESULTS No Results REASON FOR VISIT [facility] inpt follow up MEDICAL (GENERAL) HISTORY Type Description Date Medical History Hypertension Medical History Mixed Hyperlipidemia Medical History 10/26/15 Cardiac Ablasion Medical History Venous insufficiency Medical History Atrial flutter Medical History Dilated cardiomyopathy Medical History Systolic and diastolic congestive heart failure Medical History Aortic valve disease status post aVR bio prosthetic Medical History Obesity Surgical History Heart valve replaced - [facility] 2009 Surgical History Cardiac Ablation 10/2015 Hospitalization History [facility] Surgery 2009 Goals Section No Information Health Concerns No Information MEDICAL EQUIPMENT No Information MENTAL STATUS No Information FUNCTIONAL STATUS No Information ASSESSMENTS Encounter Date Diagnosis Assessment Notes Treatment Notes Treatm ent Clinical Notes Dec, Hospital discharge follow-up (ICD-10 - Z09) Hospital discharge paperwork reviewed extensively. Patient does not currently have a rheumatology appointment pending. See associated telephone encounter. Dec, Acute renal failure, unspeci fied acute renal failure type (ICD-10 - N17.9) Currently on dialysis. Following with [facility] nephrology Dec, Pancytopenia (ICD-10 - D61.818) Appointment pending with hematology/oncology PLAN OF TREATMENT Medication Medication Name Sig Start Date Stop Date predniSONE 10 MG 3 tablet Oral Once a day for 30 days Dec, Treatment Notes Assessment Notes Clinical Notes Hospital discharge follow-up [facility] paperwork reviewed extensively. Patient does not currently have a rheumatology appointment pending. See associated telephone encounter. Acute renal failure, unspecified acute renal failure type Currently on dialysis. Following with [facility] nephrology Pancytopenia Appointment pending with hematology/oncology Next Appt Details 1 Week Reason: Provider Name:Yanni Kwok, 2021-01-24 10:15:00 AM, [address] [place] [address], , [place], [place], [facility], Insurance Providers Payer Name Payer Address Payer Phone Insured Name Patient Relati onship to Insured Coverage Start Date Coverage End Date MEDICAID [employer] [address] [facility] [id number] KARLA TAPIA self [facility] ION SignatureATE CLAIMS DEPT [address] [facility] [phone] KARLA TAPIA self
--- OUTSIDE RECORDS SUMMARY | 2021-02-02 14:09 | CCD ---
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 Activ e confirmed 622173086 Problem Lightheadedness R42 Active confirmed 3867 28966 Problem Prostate cancer screening Z12.5 Active confirmed 212105435 Problem Mixed hyperlipidemia E78.2 Active confirmed 250748045 Problem Sleep disorder, unspecified G47.9 Active confirmed 10514089 Problem 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 Active confi rmed 01954704 Problem Syncopal episodes R55 Active confirmed 27 4161418 Problem Morbid obesity due to excess calories E66.01 Ac tive confirmed 580559753 Problem Venous insufficiency I87.2 Active confirmed 54031866 Problem Atypical atrial flutter I48.4 Active confirmed 15207745148061877 Problem BMI 38.0-38.9,adult Z68.38 Active confirmed 133598617 Problem Nonrheumatic aortic (valve) stenosis I35.0 Act marquis confirmed 733094866 Problem Dilated cardiomyopathy I42.0 Active confirmed 804467722 Problem Primary osteoarthritis, 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 Active confirmed 833812708 Problem Primary osteoarthritis, 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 71 Active confirmed 644178520 Problem Pancytopenia D61.818 Active confirmed 613728 005 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 139394411 Problem PVD (peripheral vascular disease) I73.9 Active confirmed 746454674 Problem Iron deficiency anemia, unspecified iron deficiency an emia type D50.9 Active confirmed 71093284 Problem Hyperlipidemia E78.5 Active confirmed 48112 004 Problem Cardiomyopathy I42.9 Active confirmed 15666 001 Problem 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 Active confirmed 83653340 Problem 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 Active confirmed 89943146 Problem Hypocomplementemia D84.1 Active confirmed 2 4295733 Problem 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 Active confirmed 427770947 ALLERGIES No Known Allergies ENCOUNTERS from 1965 to 2021-01-25 Encounter Location Date Provider Diagnosis [address] [place] [address] Jan, Bev Lara Iron deficiency anem ia, unspecified iron deficiency anemia type D50.9 IMMUNIZATIONS Vaccine Route Administration Date Status Influenza [...] Information RESULTS No Results REASON FOR VISIT tried/weak/cant walk as far as normal MEDICAL (GENERAL) HISTORY Type Description Date Medical History Hypertension Medical History Mixed Hyperlipidemia Medical History 10/26/15 Cardiac Ablasion Medical History Venous insufficiency Medical History Atrial flutter Medical History Dilated cardiomyopathy Medical History Systolic and diastolic congestive heart failure Medical History Aortic valve disease status post aVR bio prosthetic Medical History Obesity Surgical History Heart valve replaced - [facility] 2009 Surgical History Cardiac Ablation 10/2015 Hospitalization History [facility] Surgery 2009 Goals Section No Information Health Concerns No Information MEDICAL EQUIPMENT No Information MENTAL STATUS No Information FUNCTIONAL STATUS No Information ASSESSMENTS Encounter Date Diagnosis Assessment Notes Treatment Notes Treatm ent Clinical Notes Jan, Iron deficiency anemia, unsp ecified iron deficiency anemia type (ICD-10 - D50.9) PLAN OF TREATMENT Medication Medication Name Sig Start Date Stop Date predniSONE 10 MG 3 tablet Oral Once a day for 30 days Dec, Future Test Test Name Order Date CBC with Differential 20210125 Comprehensive Metabolic Profile (CMP) 20210125 Next Appt Details Provider Name:Yanni Kwok, 2021-01-25 11:45:00 AM, [address] [place] [address], , [place], [place], [facility], Insurance Providers Payer Name Payer Address Payer Phone Insured Name Patient Relati onship to Insured Coverage Start Date Coverage End Date [employer]PORATE CLAIMS DEPT [address] [facility] [phone] KARLA TAPIA self [facility] [address] [facility] [id number] KARLA TAPIA self
--- OUTSIDE RECORDS SUMMARY | 2021-02-02 14:09 | CCD ---
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 Activ e confirmed 158846696 Problem Lightheadedness R42 Active confirmed 3867 43734 Problem Prostate cancer screening Z12.5 Active confirmed 905759520 Problem Mixed hyperlipidemia E78.2 Active confirmed 067529364 Problem Sleep disorder, unspecified G47.9 Active confirmed 13877675 Problem 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 Active confi rmed 80802775 Problem Syncopal episodes R55 Active confirmed 27 5658380 Problem Morbid obesity due to excess calories E66.01 Ac tive confirmed 213571899 Problem Venous insufficiency I87.2 Active confirmed 88450691 Problem Atypical atrial flutter I48.4 Active confirmed 87481076534140397 Problem BMI 38.0-38.9,adult Z68.38 Active confirmed 475859176 Problem Nonrheumatic aortic (valve) stenosis I35.0 Act marquis confirmed 627694430 Problem Dilated cardiomyopathy I42.0 Active confirmed 510236683 Problem Primary osteoarthritis, 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 Active confirmed 945126009 Problem Primary osteoarthritis, 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 71 Active confirmed 411281032 Problem Pancytopenia D61.818 Active confirmed 070701 005 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 383324370 Problem PVD (peripheral vascular disease) I73.9 Active confirmed 781534807 Problem Iron deficiency anemia, unspecified iron deficiency an emia type D50.9 Active confirmed 79614426 Problem Hyperlipidemia E78.5 Active confirmed 98374 004 Problem Cardiomyopathy I42.9 Active confirmed 75750 001 Problem 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 Active confirmed 69130078 Problem 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 Active confirmed 42475101 Problem Hypocomplementemia D84.1 Active confirmed 2 2960315 Problem 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 Active confirmed 371007474 ALLERGIES No Known Allergies ENCOUNTERS from 1965 to 2021-01-24 Encounter Location Date Provider Diagnosis [facility] Rheumatology [address] [place] [address] [place] [address] Jan, [facility] IMMUNIZATIONS Vaccine Route Administration Date Status Influenza [...] Information RESULTS No Results REASON FOR VISIT reschedule 01/24/21 MEDICAL (GENERAL) HISTORY Type Description Date Medical History Hypertension Medical History Mixed Hyperlipidemia Medical History 10/26/15 Cardiac Ablasion Medical History Venous insufficiency Medical History Atrial flutter Medical History Dilated cardiomyopathy Medical History Systolic and diastolic congestive heart failure Medical History Aortic valve disease status post aVR bio prosthetic Medical History Obesity Surgical History Heart valve replaced - [facility] 2009 Surgical History Cardiac Ablation 10/2015 Hospitalization History [facility] Surgery 2010 Goals Section No Information Health Concerns No Information MEDICAL EQUIPMENT No Information MENTAL STATUS No Information FUNCTIONAL STATUS No Information ASSESSMENTS No Information PLAN OF TREATMENT Medication Medication Name Sig Start Date Stop Date predniSONE 10 MG 3 tablet Oral Once a day for 30 days Dec, Next Appt Details Provider Name:Yanni Kwok, 2021-01-25 11:45:00 AM, [address] [place] [address], , [place], [place], [facility], Insurance Providers Payer Name Payer Address Payer Phone Insured Name Patient Relati onship to Insured Coverage Start Date Coverage End Date MEDICAID [employer] [address] [facility] [id number] KARLA TAPIA self [employer] CLAIM[employer] DEPT [address] [facility] [phone] KARLA TAPIA self
--- OUTSIDE RECORDS SUMMARY | 2021-02-02 14:10 | CCD ---
Author Author [facility] Organization [facility] Address Unknown Phone Unavailable Care Team Providers Care Radiographer Angiogram Name Role Phone Yanni Kwok Unavailable PROBLEMS Type Condition ICD9-CM Code [id number] Code Onset Dates Condition S tatus W/U Status Risk SNOMED Code Notes Problem PVD (peripheral vascular disease) I73.9 Active confirmed 967914239 Problem Hyperlipidemia E78.5 Active confirmed 41221 004 Problem 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 Active confi rmed 78664606 Problem Syncopal episodes R55 Active confirmed 27 2828532 Problem Morbid obesity due to excess calories E66.01 Ac tive confirmed 344299225 Problem Venous insufficiency I87.2 Active confirmed 36684316 Problem Atypical atrial flutter I48.4 Active confirmed 89827440230292478 Problem Prostate cancer screening Z12.5 Active confirmed 720008413 Problem BMI 38.0-38.9,adult Z68.38 Active confirmed 682885247 Problem Colon cancer screening Z12.11 Active confirmed 818587951 Problem Sleep disorder, unspecified G47.9 Active confirmed 14368141 Problem Mixed hyperlipidemia E78.2 Active confirmed 071756409 Problem Primary osteoarthritis, 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 Active confirmed 975661141 Problem Hypocomplementemia D84.1 Active confirmed 2 4497819 Problem Nonrheumatic aortic (valve) stenosis I35.0 Act marquis confirmed 669280480 Problem Cardiomyopathy I42.9 Active confirmed 90042 001 Problem 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 Active confirmed 138636138 Problem Dilated cardiomyopathy I42.0 Active confirmed 032102503 Problem 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 Activ e confirmed 634057969 Problem Lightheadedness R42 Active confirmed 3867 88084 Problem Primary osteoarthritis, 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 71 Active confirmed 125037710 Problem Pancytopenia D61.818 Active confirmed 001581 005 Problem 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 Active confirmed 99478735 Problem 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 Active confirmed 15365624 ALLERGIES No Known Allergies ENCOUNTERS from 1965 to 2020-11-28 Encounter Location Date Provider Diagnosis [facility] Rheumatology [address] [place] [address] [place] [address] Nov, [facility] Elevated EBV antibody titer R76.0 ; Rheumatoid factor positive R76.8 ; Pancytopenia D61.818 ; 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 ; Abnormal ANCA (antineutrophil cytoplasmic antibody) R76.8 ; Hypocomplementemia D84.1 ; Rash R21 ; Weight loss R63.4 ; Dry mouth R68.2 and Lyme disease A69.20 IMMUNIZATIONS Vaccine Route Administration Date Status Influenza [...] FOR REFERRAL No Information VITAL SIGNS Weight 191.0 lbs Nov, Weight-kg 86.64 kg Nov, Height 67 in 10 Nov, 2020 BMI 29.91 kg/m2 Nov, Heart Rate 92 /min Nov, Respiratory Rate 18 /min Nov, Temperature 99.2 degrees Fahrenheit Nov, Oximetry 99 10 Nov, 2020 Blood pressure systolic 120 mm Hg Nov, Blood pressure diastolic 72 mm Hg Nov, MEDICATIONS Medication SIG (Take, Route, Frequency, Duration) Notes Start Da te End Date Status Simvastatin 40 40mg 1 tab(s) oral Once daily Active Aspir-81 81 MG 1 cap(s) Orally Once a day Active Multaq 400 MG 1 tablet with meals Orally Twice a day Active Enalapril 5 mg one tab orally Once daily Active Furosemide 20 MG 1 tablet Orally Once a day prn Active PROCEDURES No Information RESULTS No Results REASON FOR VISIT No concerns at this time MEDICAL (GENERAL) HISTORY Type Description Date Medical History Hypertension Medical History Mixed Hyperlipidemia Medical History 10/26/15 Cardiac Ablasion Medical History Venous insufficiency Medical History Atrial flutter Medical History Dilated cardiomyopathy Medical History Systolic and diastolic congestive heart failure Medical History Aortic valve disease status post aVR bio prosthetic Medical History Obesity Surgical History Heart valve replaced - [facility] 2009 Surgical History Cardiac Ablation 10/2015 Hospitalization History [facility] Surgery 2009 Goals Section No Information Health Concerns No Information MEDICAL EQUIPMENT No Information MENTAL STATUS No Information FUNCTIONAL STATUS No Information ASSESSMENTS Encounter Date Diagnosis Assessment Notes Treatment Notes Treatm ent Clinical Notes Nov, Elevated EBV antibody titer (ICD-10 - R76.0) Given the positive EBV antibody concerning for an acute monocleosis syndrome, recommended that Mr. Saravia is referred to Infectious Disease. He declined the referral at this time. He would prefer that he follows up with his primary care provider who works closely with his sister. She can perform the referral, if she feels it is appropriate. Nov, Rheumatoid factor positive (ICD-10 - R76.8) No evidence of Rheumatoid Arthritis, based on the overall clinical presentation. He denies significant joint symptomatology and he has no synovitis on the physical examination. The clinical presentation is not consistent with Felty Syndrome (Rheumatoid Arthritis, splenomegaly, and pancytopenia) at this time because Mr. Saravia does not have any evidence of Rheumatoid Arthritis. A positive Rheumatoid factor increases the risk of Rheumatoid Arthritis in the future; therefore any development of joint symptomatology should be monitored closely. Nov, Pancytopenia (ICD-10 - D61.818) Reviewed the labs, in detail. The underlying etiology of the pancytopenia is unclear at this time. The pancytopenia is slowly improving (platelets > 150) over time. It is concerning that an underlying infection may be the underlying etiology of the pancytopenia. The EBV IgM VCA is present concerning for mononucleosis in the setting of pancytopenia, splenomegaly, gastrointenstinal disturbances, and weight loss. Recommend repeat EBV panel in 1 month. - It is noted that the ferritin level is slowly decreasing over time, after the acute elevation. - The uric acid remains significantly elevated (10.4 mg/dL -> 9.0 mg/dL). - The serum protein electrophoresis and immunoglobins (IgA, IgM) were unremarkable; the IgG remains significantly elevated. - The anti-naranjo, ribonucleoprotein (SURVEY RESEARCHER), and anti-histone antibody were negative. The positive Beta-2 Glycoprotein 1 IgG & IgA were positive and the antibodies are present, but declining. - The inflammatory markers (ESR, CRP) are slowly decreasing. Will monitor the inflammatory markers closely. - The clinical presentation has stabilized; recommend continued monitoring - will defer to primary, per patient request. Nov, Hypergammaglobulinemia (ICD-10 - D89.2) Clinical presentation consistent with hypergammaglobulinemia (IgG) and recommend that he is evaluated by an display screen fabricator. Will defer the referral to the primary care, per the patient request. Nov, Abnormal ANCA (antineutrophi l cytoplasmic antibody) (ICD-10 - R76.8) History of positive C-ANCA in 06/15/2020 is noted in the setting of a mild non- blanching rash on the lower extremities. The repeat ANCA on 06/22/2020 was negative. The differential diagnosis includes vasculitis, though the current evidence is not convincing without further investigation (strongly recommend biopsy). No evidence of the cryoglobulinemia. The repeat ANCA from 06/22/2020 was negative. At the last appointment, the ANCA was repeated and is pending. Nov, Hypocomplementemia (ICD-10 - D84.1) Low complements noted; the complement levels should be monitored over time. Nov, Rash (ICD-10 - R21) Rash noted on the lower extremities; non-blanching lesions present. Strongly recommend dermatology evaluation for possible biopsy to r/o vasculitis of the skin in the setting of a positive ANCA. Nov, Weight loss (ICD-10 - R63.4) Given the significant weight loss in the setting of abdominal pain and loss of appetite, the celiac panel is within normal limits. No evidence of diabetes mellitus. The weight loss has stabilized; the patient is intentionally trying to lose/maintain weight, at this time. 10 Nov, 2020 Dry mouth (ICD-10 - R68.2) Negative SSA and SSA antibodies; no evidence of Sjogren's Syndrome in the setting of dry mouth. Will continue to monitor the symptoms. Nov, Lyme disease (ICD-10 - A69.20) History of Lyme disease, treated appropriately in the past. No further intervention needed. PLAN OF TREATMENT Treatment Notes Assessment Notes Clinical Notes Elevated EBV antibody titer Given the po sitive EBV antibody concerning for an acute monocleosis syndrome, recommended that Mr. Saravia is referred to Infectious Disease. He declined the referral at this time. He would prefer that he follows up with his primary care provider who works closely with his sister. She can perform the referral, if she feels it is appropriate. Rheumatoid factor positive No evidence o f Rheumatoid Arthritis, based on the overall clinical presentation. He denies significant joint symptomatology and he has no synovitis on the physical examination. The clinical presentation is not consistent with Felty Syndrome (Rheumatoid Arthritis, splenomegaly, and pancytopenia) at this time because Mr. Saravia does not have any evidence of Rheumatoid Arthritis. A positive Rheumatoid factor increases the risk of Rheumatoid Arthritis in the future; therefore any development of joint symptomatology should be monitored closely. Pancytopenia Reviewed the labs, i n detail. The underlying etiology of the pancytopenia is unclear at this time. The pancytopenia is slowly improving (platelets > 150) over time. It is concerning that an underlying infection may be the underlying etiology of the pancytopenia. The EBV IgM VCA is present concerning for mononucleosis in the setting of pancytopenia, splenomegaly, gastrointenstinal disturbances, and weight loss. Recommend repeat EBV panel in 1 month.- It is noted that the ferritin level is slowly decreasing over time, after the acute elevation.- The uric acid remains significantly elevated (10.4 mg/dL -> 9.0 mg/dL).- The serum protein electrophoresis and immunoglobins (IgA, IgM) were unremarkable; the IgG remains significantly elevated.- The anti-naranjo, ribonucleoprotein (SURVEY RESEARCHER), and anti-histone antibody were negative. The positive Beta-2 Glycoprotein 1 IgG & IgA were positive and the antibodies are present, but declining.- The inflammatory markers (ESR, CRP) are slowly decreasing. Will monitor the inflammatory markers closely.- The clinical presentation has stabilized; recommend continued monitoring - will defer to primary, per patient request. Hypergammaglobulinemia Clinical presenta tion consistent with hypergammaglobulinemia (IgG) and recommend that he is evaluated by an display screen fabricator. Will defer the referral to the primary care, per the patient request. Abnormal ANCA (antineutrophil cytoplasmic antibody) History of positive C-ANCA in 06/15/2020 is noted in the setting of a mild non-blanching rash on the lower extremities. The repeat ANCA on 06/22/2020 was negative. The differential diagnosis includes vasculitis, though the current evidence is not convincing without further investigation (strongly recommend biopsy). No evidence of the cryoglobulinemia. The repeat ANCA from 06/22/2020 was negative. At the last appointment, the ANCA was repeated and is pending. Hypocomplementemia Low complements note d; the complement levels should be monitored over time. Rash Rash noted on the lo wer extremities; non-blanching lesions present. Strongly recommend dermatology evaluation for possible biopsy to r/o vasculitis of the skin in the setting of a positive ANCA. Weight loss Given the significan t weight loss in the setting of abdominal pain and loss of appetite, the celiac panel is within normal limits. No evidence of diabetes mellitus. The weight loss has stabilized; the patient is intentionally trying to lose/maintain weight, at this time. Dry mouth Negative SSA and SSA antibodies; no evidence of Sjogren's Syndrome in the setting of dry mouth. Will continue to monitor the symptoms. Lyme disease History of Lyme dise ase, treated appropriately in the past. No further intervention needed. Next Appt Details Provider Name:Bev Lara, 2020-12 08:45:00 AM, [address] [place] [address], , [place], [address], Provider Name:Bev Lara, 2020-12 08:30:00 AM, [address] [place] [address], , [place], [address], Insurance Providers Payer Name Payer Address Payer Phone Insured Name Patient Relati onship to Insured Coverage Start Date Coverage End Date [facility] DEPT [address] [facility] [phone] KARLA SARAVIA self MEDICAID [employer] [address] [facility] [id number] KARLA SARAVIA self
--- OUTSIDE RECORDS SUMMARY | 2021-02-02 14:10 | CCD ---
Author Author [facility] Organization [facility] Address Unknown Phone Unavailable Care Team Providers Care Foundry Worker Name Role Phone Darci Lane Unavailable PROBLEMS Type Condition ICD9-CM Code [id number] Code Onset Dates Condition S tatus W/U Status Risk SNOMED Code Notes Problem PVD (peripheral vascular disease) I73.9 Active confirmed 603912220 Problem Hyperlipidemia E78.5 Active confirmed 37374 004 Problem 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 Active confi rmed 62651301 Problem Syncopal episodes R55 Active confirmed 27 4083985 Problem Morbid obesity due to excess calories E66.01 Ac tive confirmed 439252324 Problem Venous insufficiency I87.2 Active confirmed 64236343 Problem Atypical atrial flutter I48.4 Active confirmed 58829646178706718 Problem Prostate cancer screening Z12.5 Active confirmed 262698324 Problem BMI 38.0-38.9,adult Z68.38 Active confirmed 830148488 Problem Colon cancer screening Z12.11 Active confirmed 384518286 Problem Sleep disorder, unspecified G47.9 Active confirmed 27111785 Problem Mixed hyperlipidemia E78.2 Active confirmed 086991048 Problem Primary osteoarthritis, 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 Active confirmed 209351790 Problem Hypocomplementemia D84.1 Active confirmed 2 1057366 Problem Nonrheumatic aortic (valve) stenosis I35.0 Act marquis confirmed 830418776 Problem Cardiomyopathy I42.9 Active confirmed 58474 001 Problem 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 Active confirmed 902500129 Problem Dilated cardiomyopathy I42.0 Active confirmed 319654498 Problem 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 Activ e confirmed 979852815 Problem Lightheadedness R42 Active confirmed 3867 33734 Problem Primary osteoarthritis, 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 71 Active confirmed 281380383 Problem Pancytopenia D61.818 Active confirmed 979131 005 Problem 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 Active confirmed 77353273 Problem 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 Active confirmed 35241796 ALLERGIES No Known Allergies ENCOUNTERS from 1965 to 2020-12-03 Encounter Location Date Provider Diagnosis [facility] Oscar NATARAJAN [phone] [place] [address] Nov, Darci Barnesh IMMUNIZATIONS Vaccine Route Administration Date Status Influenza [...] Notes Start Da te End Date Status Aspir-81 81 MG 1 cap(s) Orally Once a day Active Multaq 400 MG 1 tablet with meals Orally Twice a day Active Simvastatin 40 40mg 1 tab(s) oral Once daily Active Furosemide 20 MG 1 tablet Orally Once a day prn Active Enalapril 5 mg one tab orally Once daily Active PROCEDURES No Information RESULTS No Results REASON FOR VISIT No Information MEDICAL (GENERAL) HISTORY Type Description Date Medical History Hypertension Medical History Mixed Hyperlipidemia Medical History 10/26/15 Cardiac Ablasion Medical History Venous insufficiency Medical History Atrial flutter Medical History Dilated cardiomyopathy Medical History Systolic and diastolic congestive heart failure Medical History Aortic valve disease status post aVR bio prosthetic Medical History Obesity Surgical History Heart valve replaced - [facility] 2009 Surgical History Cardiac Ablation 10/2015 Hospitalization History [facility] Surgery 2009 Goals Section No Information Health Concerns No Information MEDICAL EQUIPMENT No Information MENTAL STATUS No Information FUNCTIONAL STATUS No Information ASSESSMENTS No Information PLAN OF TREATMENT Next Appt Details Provider Name:Bev Hess Lara, 2020-12 08:45:00 AM, [address] [place] [address], , [place], [address], Provider Name:Bev Hess Marco, 2020-12 08:30:00 AM, [address] [place] [address], , [place], [address], Insurance Providers Payer Name Payer Address Payer Phone Insured Name Patient Relati onship to Insured Coverage Start Date Coverage End Date MEDICAID [employer] [address] [facility] [id number] KARLA TAPIA self [employer] DEPT [address] [facility] [phone] KARLA TAPIA self
--- OUTSIDE RECORDS SUMMARY | 2021-02-02 14:10 | CCD ---
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 Activ e confirmed 005829575 Problem Prostate cancer screening Z12.5 Active confirmed 102997376 Problem Sleep disorder, unspecified G47.9 Active confirmed 70815002 Problem Nonrheumatic aortic (valve) stenosis I35.0 Act marquis confirmed 611846946 Problem Syncopal episodes R55 Active confirmed 27 6773868 Problem PVD (peripheral vascular disease) I73.9 Active confirmed 973808342 Problem Venous insufficiency I87.2 Active confirmed 57237256 Problem 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 Active confi rmed 20740697 Problem BMI 38.0-38.9,adult Z68.38 Active confirmed 230352871 Problem Morbid obesity due to excess calories E66.01 Ac tive confirmed 350994948 Problem Dilated cardiomyopathy I42.0 Active confirmed 520144795 Problem Atypical atrial flutter I48.4 Active confirmed 82988531325354019 Problem Mixed hyperlipidemia E78.2 Active confirmed 991957061 Problem Primary osteoarthritis, 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 Active confirmed 586306012 Problem Primary osteoarthritis, 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 71 Active confirmed 870014408 Problem 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 Active confirmed 976893112 Problem Lightheadedness R42 Active confirmed 3865 23631 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 580885056 Problem Cardiomyopathy I42.9 Active confirmed 20189 001 Problem Hyperlipidemia E78.5 Active confirmed 81876 004 Problem Pancytopenia D61.818 Active confirmed 016460 005 Problem 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 Active confirmed 80320653 Problem 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 Active confirmed 16705503 Problem Hypocomplementemia D84.1 Active confirmed 2 9639078 ALLERGIES No Known Allergies ENCOUNTERS from 1965 to 2020-12-24 Encounter Location Date Provider Diagnosis [address] [place] [address] Dec, Bev Lara IMMUNIZATIONS Vaccine Route Administration Date [...] Information RESULTS No Results REASON FOR VISIT [facility] Hosp F/U Care/Concerns MEDICAL (GENERAL) HISTORY Type Description Date Medical History Hypertension Medical History Mixed Hyperlipidemia Medical History 10/26/15 Cardiac Ablasion Medical History Venous insufficiency Medical History Atrial flutter Medical History Dilated cardiomyopathy Medical History Systolic and diastolic congestive heart failure Medical History Aortic valve disease status post aVR bio prosthetic Medical History Obesity Surgical History Heart valve replaced - [facility] 2009 Surgical History Cardiac Ablation 10/2015 Hospitalization History [facility] 2010 Goals Section No Information Health Concerns No Information MEDICAL EQUIPMENT No Information MENTAL STATUS No Information FUNCTIONAL STATUS No Information ASSESSMENTS No Information PLAN OF TREATMENT Medication Medication Name Sig Start Date Stop Date predniSONE 10 MG 3 tablet Oral Once a day for 30 days Dec, Next Appt Details Provider Name:Yanni Kwok, 2021-01-24 10:15:00 AM, [address] [place] [address], , [place], [place], [facility], Insurance Providers Payer Name Payer Address Payer Phone Insured Name Patient Relati onship to Insured Coverage Start Date Coverage End Date MEDICAID [employer] [address] [facility] [id number] KARLA TAPIA self [employer] DE[employer] [address] [facility] [phone] KARLA TAPIA self
--- OUTSIDE RECORDS SUMMARY | 2021-02-02 14:10 | CCD ---
Author Author [facility] Organization [facility] Address Unknown Phone Unavailable Care Team Providers Care Die Engraving Supervisor Name Role Phone Bev Lara Unavailable PROBLEMS Type Condition ICD9-CM Code [id number] Code Onset Dates Condition S tatus W/U Status Risk SNOMED Code Notes Problem PVD (peripheral vascular disease) I73.9 Active confirmed 981726935 Problem Hyperlipidemia E78.5 Active confirmed 83401 004 Problem 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 Active confi rmed 42130626 Problem Syncopal episodes R55 Active confirmed 27 7858197 Problem Morbid obesity due to excess calories E66.01 Ac tive confirmed 088107984 Problem Venous insufficiency I87.2 Active confirmed 77265292 Problem Atypical atrial flutter I48.4 Active confirmed 16136275178578759 Problem Prostate cancer screening Z12.5 Active confirmed 188344737 Problem BMI 38.0-38.9,adult Z68.38 Active confirmed 008309488 Problem Colon cancer screening Z12.11 Active confirmed 152981700 Problem Sleep disorder, unspecified G47.9 Active confirmed 30186887 Problem Mixed hyperlipidemia E78.2 Active confirmed 472915476 Problem Primary osteoarthritis, 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 Active confirmed 163957583 Problem Hypocomplementemia D84.1 Active confirmed 2 3628969 Problem Nonrheumatic aortic (valve) stenosis I35.0 Act marquis confirmed 689248014 Problem Cardiomyopathy I42.9 Active confirmed 03438 001 Problem 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 Active confirmed 859715094 Problem Dilated cardiomyopathy I42.0 Active confirmed 793106529 Problem 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 Activ e confirmed 898296363 Problem Lightheadedness R42 Active confirmed 3867 16827 Problem Primary osteoarthritis, 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 71 Active confirmed 789631629 Problem Pancytopenia D61.818 Active confirmed 258706 005 Problem 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 Active confirmed 13620925 Problem 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 Active confirmed 16363076 ALLERGIES No Known Allergies ENCOUNTERS from 1965 to 2020-12-06 Encounter Location Date Provider Diagnosis [address] [place] [address] 16 Nov, 2020 Bev Lara Rash R21 IMMUNIZATIONS Vaccine Route Administration Date Status Influenza [...] you a: never smoker REASON FOR REFERRAL from 1965 to 2020-12-06 Reason Persistent rash BTL lower ex tremities- nonblanching, violaceous papular rash/petichiae|Chronic weight loss, nausea|Please evaluate and treat Diagnosis 1 Rash (R21) Referral Organization [facility] Referring Provider First Name Bev Referring Provider Last Name Marco Referring Provider Specialty Family Medicine Referred Provider Quinn Combs Referred Provider Specialty Dermatology Referral Priority Routine General Notes Bev Lara PA-C 11/30 11:34:37 AM > Please refer to [facility]. Sophia Tracey 11/30/2020 1:40:50 PM > referral faxed Clinical Notes Sophia Barillas 11/30/2020 1 :41:03 PM > printed VITAL SIGNS Weight 190.5 lbs lbs Nov, Weight-kg 86.41 kg Nov, Height 67 in Nov, BMI 29.83 kg/m2 Nov, Heart Rate 56 /min Nov, Respiratory Rate 16 /min Nov, Temperature 98.6 degrees Fahrenheit Nov, Oximetry 100%ra Nov, Blood pressure systolic 96 mm Hg Nov, Blood pressure diastolic 56 mm Hg Nov, MEDICATIONS Medication SIG (Take, [...] Information RESULTS No Results REASON FOR VISIT bites on legs MEDICAL (GENERAL) HISTORY Type Description Date Medical History Hypertension Medical History Mixed Hyperlipidemia Medical History 10/26/15 Cardiac Ablasion Medical History Venous insufficiency Medical History Atrial flutter Medical History Dilated cardiomyopathy Medical History Systolic and diastolic congestive heart failure Medical History Aortic valve disease status post aVR bio prosthetic Medical History Obesity Surgical History Heart valve replaced - [facility] 2009 Surgical History Cardiac Ablation 10/2015 Hospitalization History [facility] Surgery 2009 Goals Section No Information Health Concerns No Information MEDICAL EQUIPMENT No Information MENTAL STATUS No Information FUNCTIONAL STATUS No Information ASSESSMENTS Encounter Date Diagnosis Assessment Notes Treatment Notes Treatm ent Clinical Notes Nov, Rash (ICD-10 - R21) Patient education was given regarding differential diagnosis, diagnosis, medications, treatments, and expected outcomes. Parent educated on risks, SE/AE, benefits, alternatives of regimen.Patient advised to return to clinic or call office for further evaluation if if symptoms persist, worsen, do not improve with the use of medication, or if he/she experiences any issues with prescribed medication. Discussed warning signs and symptoms to seek immediate/emergent medical attention for. Patient expressed an understanding of these recommendations. All questions answered. PLAN OF TREATMENT Treatment Notes Assessment Notes Clinical Notes Rash Patient education wa s given regarding differential diagnosis, diagnosis, medications, treatments, and expected outcomes. Parent educated on risks, SE/AE, benefits, alternatives of regimen.Patient advised to return to clinic or call office for further evaluation if if symptoms persist, worsen, do not improve with the use of medication, or if he/she experiences any issues with prescribed medication. Discussed warning signs and symptoms to seek immediate/emergent medical attention for. Patient expressed an understanding of these recommendations. All questions answered. Referrals Referral Date Details Persistent rash BTL lower ex tremities- nonblanching, violaceous papular rash/petichiae|Chronic weight loss, nausea|Please evaluate and treat, Quinn Combs Next Appt Details 4 Weeks Reason: Provider Name:Bev Lara, 2020-12 08:45:00 AM, [address] [place] [address], , [place], [address], Provider Name:Bev Lara, 2020-12 08:30:00 AM, [address] [place] [address], , [place], [address], Insurance Providers Payer Name Payer Address Payer Phone Insured Name Patient Relati onship to Insured Coverage Start Date Coverage End Date MEDICAID [employer] [address] [facility] [id number] KARLA TAPIA self [employer] CLAIM[employer] DEPT [address] [facility] [phone] KARLA TAPIA self"
--- OUTSIDE RECORDS SUMMARY | 2021-02-02 14:10 | CCD ---
Author Author [facility] Organization [facility] Address Unknown Phone Unavailable Care Team Providers Care Director Of Corporate Responsibility Name Role Phone Bev Lara Unavailable PROBLEMS Type Condition ICD9-CM Code [id number] Code Onset Dates Condition S tatus W/U Status Risk SNOMED Code Notes Problem PVD (peripheral vascular disease) I73.9 Active confirmed 211824248 Problem Hyperlipidemia E78.5 Active confirmed 68978 004 Problem 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 Active confi rmed 05563654 Problem Syncopal episodes R55 Active confirmed 27 5550319 Problem Morbid obesity due to excess calories E66.01 Ac tive confirmed 212815156 Problem Venous insufficiency I87.2 Active confirmed 84368888 Problem Atypical atrial flutter I48.4 Active confirmed 65828711038447797 Problem Prostate cancer screening Z12.5 Active confirmed 572570803 Problem BMI 38.0-38.9,adult Z68.38 Active confirmed 262896834 Problem Colon cancer screening Z12.11 Active confirmed 006182135 Problem Sleep disorder, unspecified G47.9 Active confirmed 92544192 Problem Mixed hyperlipidemia E78.2 Active confirmed 806190039 Problem Primary osteoarthritis, 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 Active confirmed 822865471 Problem Hypocomplementemia D84.1 Active confirmed 2 8350840 Problem Nonrheumatic aortic (valve) stenosis I35.0 Act marquis confirmed 965537018 Problem Cardiomyopathy I42.9 Active confirmed 85907 001 Problem 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 Active confirmed 844561295 Problem Dilated cardiomyopathy I42.0 Active confirmed 729336663 Problem 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 Activ e confirmed 861244165 Problem Lightheadedness R42 Active confirmed 3867 94682 Problem Primary osteoarthritis, 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 71 Active confirmed 635169501 Problem Pancytopenia D61.818 Active confirmed 055160 005 Problem 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 Active confirmed 44254605 Problem 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 Active confirmed 42111831 ALLERGIES No Known Allergies ENCOUNTERS from 1965 to 2020-12-22 Encounter Location Date Provider Diagnosis [address] [place] [address] Dec, Bev Lara IMMUNIZATIONS Vaccine Route Administration [...] with meals Orally Twice a day Active predniSONE 20 MG 2 tablets Orally Daily for 5 days Dec, Active Simvastatin 40 40mg 1 tab(s) oral Once daily Active Furosemide 20 MG 1 tablet Orally Once a day prn Active Enalapril 5 mg one tab orally Once daily Active PROCEDURES No Information RESULTS No Results REASON FOR VISIT prednisone MEDICAL (GENERAL) HISTORY Type Description Date Medical History Hypertension Medical History Mixed Hyperlipidemia Medical History 10/26/15 Cardiac Ablasion Medical History Venous insufficiency Medical History Atrial flutter Medical History Dilated cardiomyopathy Medical History Systolic and diastolic congestive heart failure Medical History Aortic valve disease status post aVR bio prosthetic Medical History Obesity Surgical History Heart valve replaced - [facility] 2009 Surgical History Cardiac Ablation 10/2015 Hospitalization History [facility] Surgery 2009 Goals Section No Information Health Concerns No Information MEDICAL EQUIPMENT No Information MENTAL STATUS No Information FUNCTIONAL STATUS No Information ASSESSMENTS No Information PLAN OF TREATMENT Medication Medication Name Sig Start Date Stop Date predniSONE 20 MG 2 tablets Orally Daily for 5 days Dec, Next Appt Details Provider Name:Bev Lara, 2020-12 08:45:00 AM, [address] [place] [address], , [place], [address], Provider Name:Yanni Kwok, 2020-12-23 10:45:00 AM, [address] [place] [address], , [place], [address], Provider Name:Bev Lara, 2020-12 08:30:00 AM, [address] [place] [address], , [place], [address], Insurance Providers Payer Name Payer Address Payer Phone Insured Name Patient Relati onship to Insured Coverage Start Date Coverage End Date MEDICAID [employer] [address] [facility] [id number] KARLA TAPIA self [facility] CORPORATE CLAIMS DEPT [address] [facility] [phone] KARLA TAPIA self
--- OUTSIDE RECORDS SUMMARY | 2021-02-02 14:10 | CCD ---
Author Author [facility] Organization [facility] Address Unknown Phone Unavailable Care Team Providers Care Human Services Care Specialist Name Role Phone Bev Lara Unavailable PROBLEMS Type Condition ICD9-CM Code GGT78-BU Code Onset Dates Condition S tatus W/U Status Risk SNOMED Code Notes Problem PVD (peripheral vascular disease) I73.9 Active confirmed 458173895 Problem Hyperlipidemia E78.5 Active confirmed 20207 004 Problem 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 Active confi rmed 48333417 Problem Syncopal episodes R55 Active confirmed 27 2714057 Problem Morbid obesity due to excess calories E66.01 Ac tive confirmed 538779783 Problem Venous insufficiency I87.2 Active confirmed 60437093 Problem Atypical atrial flutter I48.4 Active confirmed 70000716567086429 Problem Prostate cancer screening Z12.5 Active confirmed 489776844 Problem BMI 38.0-38.9,adult Z68.38 Active confirmed 812559797 Problem Colon cancer screening Z12.11 Active confirmed 448952354 Problem Sleep disorder, unspecified G47.9 Active confirmed 87485224 Problem Mixed hyperlipidemia E78.2 Active confirmed 805298659 Problem Primary osteoarthritis, 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 Active confirmed 758711279 Problem Hypocomplementemia D84.1 Active confirmed 2 6852295 Problem Nonrheumatic aortic (valve) stenosis I35.0 Act marquis confirmed 070548285 Problem Cardiomyopathy I42.9 Active confirmed 71892 001 Problem 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 Active confirmed 505365430 Problem Dilated cardiomyopathy I42.0 Active confirmed 245139437 Problem 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 Activ e confirmed 298231469 Problem Lightheadedness R42 Active confirmed 3867 24315 Problem Primary osteoarthritis, 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 71 Active confirmed 514947149 Problem Pancytopenia D61.818 Active confirmed 935285 005 Problem 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 Active confirmed 43583970 Problem 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 Active confirmed 24078650 ALLERGIES No Known Allergies ENCOUNTERS from 1965 to 2020-12-03 Encounter Location Date Provider Diagnosis [address] [place] [address] Nov, Bev Lara IMMUNIZATIONS Vaccine Route Administration Date [...] Information RESULTS No Results REASON FOR VISIT CT/Lab Review MEDICAL (GENERAL) HISTORY Type Description Date Medical History Hypertension Medical History Mixed Hyperlipidemia Medical History 10/26/15 Cardiac Ablasion Medical History Venous insufficiency Medical History Atrial flutter Medical History Dilated cardiomyopathy Medical History Systolic and diastolic congestive heart failure Medical History Aortic valve disease status post aVR bio prosthetic Medical History Obesity Surgical History Heart valve replaced - [facility] 2009 Surgical History Cardiac Ablation 10/2015 Hospitalization History [facility] Surgery 2009 Goals Section No Information Health Concerns No Information MEDICAL EQUIPMENT No Information MENTAL STATUS No Information FUNCTIONAL STATUS No Information ASSESSMENTS No Information PLAN OF TREATMENT Next Appt Details Provider Name:Bev Lara, 2020-12 08:45:00 AM, [address] [place] [address], , [place], [address], Provider Name:Bev Lara, 2020-12 08:30:00 AM, [address] [place] [address], , [place], [address], Insurance Providers Payer Name Payer Address Payer Phone Insured Name Patient Relati onship to Insured Coverage Start Date Coverage End Date [facility] [employer] CLAIMS DEPT [address] [facility] [phone] KARLA TAPIA self MEDICAID [employer] [address] [facility] [id number] KARLA TAPIA self
--- OUTSIDE RECORDS SUMMARY | 2021-02-02 14:10 | CCD ---
Author Author [facility] Organization [facility] Address Unknown Phone Unavailable Care Team Providers Care Driller'S Assistant Name Role Phone Yanni Kwok Unavailable PROBLEMS Type Condition ICD9-CM Code [id number] Code Onset Dates Condition S tatus W/U Status Risk SNOMED Code Notes Problem Hyperlipidemia E78.5 Active confirmed 58384 004 Problem Lightheadedness R42 Active confirmed 3860 89040 Problem Syncopal episodes R55 Active confirmed 27 1537669 Problem PVD (peripheral vascular disease) I73.9 Active confirmed 484142793 Problem Venous insufficiency I87.2 Active confirmed 31183468 Problem 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 Active confi rmed 10384161 Problem BMI 38.0-38.9,adult Z68.38 Active confirmed 121526761 Problem Colon cancer screening Z12.11 Active confirmed 259836389 Problem Morbid obesity due to excess calories E66.01 Ac tive confirmed 308893523 Problem Nonrheumatic aortic (valve) stenosis I35.0 Act marquis confirmed 364962356 Problem Sleep disorder, unspecified G47.9 Active confirmed 81901083 Problem Mixed hyperlipidemia E78.2 Active confirmed 717638245 Problem 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 Active confirmed 58153366 Problem Dilated cardiomyopathy I42.0 Active confirmed 442241002 Problem 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 Activ e confirmed 793692373 Problem Hypocomplementemia D84.1 Active confirmed 2 8467617 Problem Atypical atrial flutter I48.4 Active confirmed 28415211355891205 Problem Prostate cancer screening Z12.5 Active confirmed 259175989 Problem Cardiomyopathy I42.9 Active confirmed 01608 001 Problem Primary osteoarthritis, 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 Active confirmed 137947209 Problem Primary osteoarthritis, 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 71 Active confirmed 336452495 Problem Pancytopenia D61.818 Active confirmed 276320 005 Problem 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 Active confirmed 74262196 ALLERGIES No Known Allergies ENCOUNTERS from 1965 to 2020-11-07 Encounter Location Date Provider Diagnosis [facility] Rheumatology [address] [place] [address] [place] [address] Oct, Yanni Kwok Pancytopenia D61.818 ; Rheum atoid factor positive R76.8 ; Hypocomplementemia D84.1 ; Rash R21 ; Weight loss R63.4 ; Dry mouth R68.2 ; Abnormal ANCA (antineutrophil cytoplasmic antibody) R76.8 and Lyme disease A69.20 IMMUNIZATIONS Vaccine Route [...] FOR REFERRAL No Information VITAL SIGNS Weight 193.0 lbs Oct, Weight-kg 87.54 kg Oct, Height 67 in Oct, BMI 30.22 kg/m2 Oct, Heart Rate 94 /min Oct, Respiratory Rate 18 /min Oct, Temperature 98.8 degrees Fahrenheit Oct, Oximetry 97% Oct, Blood pressure systolic 110 mm Hg Oct, Blood pressure diastolic 56 mm Hg Oct, MEDICATIONS Medication SIG (Take, Route, Frequency, Duration) [...] Once daily Active PROCEDURES No Information RESULTS Component Value Reference Range COMPLEMENT C3 Reviewed date:11/01/2020 08:56:50 Interpretation: Performing Lab:[facility] LABORATORY [address] [place] [address] , ,[place] [address] COMPLEMENT C3 74 90-180 COMPLEMENT C4 Reviewed date:11/01/2020 08:56:50 Interpretation: Performing Lab:[facility] LABORATORY [address] [place] [address] , ,[place] [address] COMPLEMENT C4 20 10-40 CBC with Differential Reviewed date:11/01/2020 08:56:50 Interpretation: Performing Lab:[facility] LABORATORY [address] [facility] [address] , ,[place] [address] WHITE BLOOD COUNT 3.2 4.0-10.0 RED BLOOD COUNT 3.51 4.30-6.10 HEMOGLOBIN 9.7 13.5-17.5 HEMATOCRIT 29.8 42.0-52.0 MEAN CORPUSCULAR VOLUME 84.9 80.0-96.0 MEAN CORPUSCULAR HEMOGLOBIN 27.6 27.0-33.0 MEAN CORPUSCULAR HGB CONC 32.6 32.0-36.5 RED CELL DISTRIBUTION WIDTH 16.2 11.5-14.5 PLATELET COUNT, AUTOMATED 162 150-450 C REACTIVE PROTEIN QUANTITATIV (At [facility] L ab) Reviewed date:11/01/2020 08:56:50 Interpretation: Performing Lab:[facility] LABORATORY [address] [facility] [address] , ,[place] [address] C REACTIVE PROTEIN QUANTITATIV 2.16 0.00-0.30 ERYTHROCYTE SEDIMENTATION RATE Reviewed date:11/01/2020 08:56:50 Interpretation: Performing Lab:[facility] LABORATORY [address] [place] [address] , ,[facility] ERYTHROCYTE SEDIMENTATION RATE 48 0-20 FERRITIN Reviewed date:11/01/2020 08:56:50 Interpretation: Performing Lab:[facility] LABORATORY [address] [place] [address] , ,[facility] FERRITIN 580 26-388 IMMUNOGLOBULIN G Reviewed date:11/01/2020 08:56:50 Interpretation: Performing Lab:[facility] LABORATORY [address] [place] [address] , ,[place] [address] IMMUNOGLOBULIN G [phone] DIFFERENTIAL Reviewed date:11/01/2020 08:56:50 Interpretation: Performing Lab:[facility] LABORATORY [address] [place] [address] , ,[facility]01 NEUTROPHILS 54 28-66 BANDS 4 < 11 LYMPHOCYTES 30 16-44 MONOCYTES 4 0-5 EOSINOPHILS 1 0-3 BASOPHILS 1 0-1 ATYPICAL LYMPH 6 0-5 PLATELET ESTIMATE Reviewed date:11/01/2020 08:56:50 Interpretation: Performing Lab:[facility] LABORATORY [address] [place] [address] , ,[place] [address] PLATELET ESTIMATE NORMAL NORMAL RHEUMATOID FACTOR QUANT Reviewed date:11/01/2020 08:56:50 Interpretation: Performing Lab:[facility] LABORATORY [address] [place] [address] , ,[facility]01 RHEUMATOID FACTOR QUANT 24.6 <15.0 BETA-2 GLYCOPROTEIN 1 KUSH ELAINE Reviewed date:11/05/2020 05:58:51 Interpretation: Performing Lab:[facility] [address] [place] [address] , ,[place] [address] BETA-2 GLYCOPROTEIN I KUSH IGG 87 0-20 BETA-2 GLYCOPROTEIN I KUSH IGA 26 0-25 BETA-2 GLYCOPROTEIN I KUSH IGM 18 0-32 COMPLEMENT TOTAL (CH50) Reviewed date:11/05/2020 05:58:51 Interpretation: Performing Lab:[facility] [address] [facility] [address] , ,[place] [address] COMPLEMENT TOTAL (CH50) 40 >41 EBV AB COMPREHENSIVE Reviewed date:11/05/2020 05:58:52 Interpretation: Performing Lab:[facility] [address] [place] [phone] , ,[place] [address] EBV VIRAL CAPSID AG IgM 129.0 0.0-35.9 EBV VIRAL CAPSID AG IgG <18.0 0.0-17.9 EBV AB TO NUCLEAR ANTIGEN <18.0 0.0-17.9 ANTI-NEUTROPHIL CYTOPLASMIC AB Reviewed date:11/05/2020 05:58:52 Interpretation: Performing Lab:[facility] [address] [place] [id number] , ,[place] [address] CYTOPLASMIC NEUTROP AB ANCA-C <1:20 Neg:<1:20 PERINUCLEAR AB ANCA-P <1:20 Neg:<1:20 ANCA-ATYPICAL <1:20 Neg:<1:20 REASON FOR VISIT Stacie presents today for his follow up visit. No concerns or complaints. MEDICAL (GENERAL) HISTORY Type Description Date Medical [...] Surgical History Cardiac Ablation 10/2015 Hospitalization History [facility] Surgery 2010 Goals Section No Information Health Concerns No Information MEDICAL EQUIPMENT No Information MENTAL STATUS No Information FUNCTIONAL STATUS No Information ASSESSMENTS Encounter Date Diagnosis Assessment Notes Treatment Notes Treatm ent Clinical Notes Oct, Pancytopenia (ICD-10 - D61.818) Reviewed the labs, in detail. The underlying etiology of the pancytopenia is ulclear at this time. - Will monitor the CBC w/ diff in the setting of pancytopenia. - No evidence of active Parvovirus IgM and IgG. History of Parvovirus, in the past. - It is noted that the ferritin level is slowly decreasing over time. Will monitor the ferritin level. - The uric acid is significantly elevated (10.3 mg/dL). Will monitor the uric acid closely. - The serum protein electrophoresis and immunoglobins (IgA, IgM) were unremarkable; the IgG was elevated. Will monitor the Immunoglobulin IgG level. - The anti-naranjo, ribonucleoprotein (QC ANALYST), and anti-histone antibody were negative. The positive Beta-2 Glycoprotein 1 IgG & IgA were positive; will monitor the Beta-2 Glycoprotein. - The vitamin B12 and folate were unremarkable. The urinalysis was unremarkable and urine protein:creatinine ratio was less than <0.5. - The inflammatory markers (ESR, CRP) are slowly decreasing. Will monitor the inflammatory markers closely. - The quantiferon gold was negative. - Will obtain the EBV Ab to r/o mononucleosis in the setting of pancytopenia, splenomegaly, gastrointenstinal disturbances, and weight loss. Oct, Rheumatoid factor positive (ICD-10 - R76.8) No evidence of Rheumatoid Arthritis, based on the overall clinical presentation. Will monitor the positive Rheumatoid factor. The anti-naranjo, anti-dsDNA, SSA (anti-Ro), SSB (anti-La), ribonucleoprotein (QC ANALYST), centromere antibodies, anti- histone, anti-topoisomerase I, antiphospholipid antibodies, urinalysis, and urine protein:creatinine ratio were less than 0.5. Oct, Hypocomplementemia (ICD-10 - D84.1) Given the hypocomplementemia, will monitor the complement (C3, C4, CH50) level. Oct, Rash (ICD-10 - R21) Rash noted on the lower extremities; non-blanching lesions present. Strongly recommend dermatology evaluation for possible biopsy to r/o vascilitis of the skin. Oct, Weight loss (ICD-10 - R63.4) Given the significant weight loss in the setting of abdominal pain and loss of appetite, the celiac panel is within normal limits. No evidence of diabetes mellitus. The weight loss has stabilized; will continue to monitor the weight closely. Oct, Dry mouth (ICD-10 - R68.2) Negative SSA and SSA antibodies; no evidence of Sjogren's Syndrome in the setting of dry mouth. Will continue to monitor the symptoms. Oct, Abnormal ANCA (antineutrophi l cytoplasmic antibody) (ICD-10 - R76.8) History of positive C-ANCA is noted in the setting of a mild non-blanching rash on the lower extremities. The differential diagnosis includes vasculitis, though the current evidence is not convincing without further investigation. No evidence of the cryoglobulinemia. Will repeat the ANCA, given the improvement in the presentation. Oct, Lyme disease (ICD-10 - A69.20) History of Lyme disease, treated appropriately in the past. No further intervention needed. PLAN OF TREATMENT Treatment Notes Assessment Notes Clinical Notes Pancytopenia Reviewed the labs, i n detail. The underlying etiology of the pancytopenia is ulclear at this time.- Will monitor the CBC w/ diff in the setting of pancytopenia.- No evidence of active Parvovirus IgM and IgG. History of Parvovirus, in the past.- It is noted that the ferritin level is slowly decreasing over time. Will monitor the ferritin level.- The uric acid is significantly elevated (10.3 mg/dL). Will monitor the uric acid closely.- The serum protein electrophoresis and immunoglobins (IgA, IgM) were unremarkable; the IgG was elevated. Will monitor the Immunoglobulin IgG level.- The anti- naranjo, ribonucleoprotein (QC ANALYST), and anti-histone antibody were negative. The positive Beta-2 Glycoprotein 1 IgG & IgA were positive; will monitor the Beta-2 Glycoprotein.- The vitamin B12 and folate were unremarkable. The urinalysis was unremarkable and urine protein:creatinine ratio was less than <0.5.- The inflammatory markers (ESR, CRP) are slowly decreasing. Will monitor the inflammatory markers closely.- The quantiferon gold was negative.- Will obtain the EBV Ab to r/o mononucleosis in the setting of pancytopenia, splenomegaly, gastrointenstinal disturbances, and weight loss. Rheumatoid factor positive No evidence o f Rheumatoid Arthritis, based on the overall clinical presentation. Will monitor the positive Rheumatoid factor. The anti-naranjo, anti-dsDNA, SSA (anti-Ro), SSB (anti-La), ribonucleoprotein (QC ANALYST), centromere antibodies, anti-histone, anti-topoisomerase I, antiphospholipid antibodies, urinalysis, and urine protein:creatinine ratio were less than 0.5. Hypocomplementemia Given the hypocomple mentemia, will monitor the complement (C3, C4, CH50) level. Rash Rash noted on the lo wer extremities; non-blanching lesions present. Strongly recommend dermatology evaluation for possible biopsy to r/o vascilitis of the skin. Weight loss Given the significan t weight loss in the setting of abdominal pain and loss of appetite, the celiac panel is within normal limits. No evidence of diabetes mellitus. The weight loss has stabilized; will continue to monitor the weight closely. Dry mouth Negative SSA and SSA antibodies; no evidence of Sjogren's Syndrome in the setting of dry mouth. Will continue to monitor the symptoms. Abnormal ANCA (antineutrophil cytoplasmic antibody) History of positive C-ANCA is noted in the setting of a mild non-blanching rash on the lower extremities. The differential diagnosis includes vasculitis, though the current evidence is not convincing without further investigation. No evidence of the cryoglobulinemia. Will repeat the ANCA, given the improvement in the presentation. Lyme disease History of Lyme dise ase, treated appropriately in the past. No further intervention needed. Treatment Notes Test Name Order Date URIC ACID 2020-10-22 ANCA Panel with MPO & PR3 2020-10-22 Next Appt Details Provider Name:Yanni Janel Kwok, 2020-11-12 04:15:00 PM, [address] [place] [address], , [place], [address], Provider Name:Bev Lara, 2020-12 08:45:00 AM, [address] [place] [address], , [place], [address], Provider Name:Bev Lara, 2020-12 08:30:00 AM, [address] [place] [address], , [place], [address], Insurance Providers Payer Name Payer Address Payer Phone Insured Name Patient Relati onship to Insured Coverage Start Date Coverage End Date MEDICAID [employer] [address] [facility] [id number] STACIE TAPIA self [employer] DEPT [address] [facility] [phone] STACIE TAPIA self
--- OUTSIDE RECORDS SUMMARY | 2021-02-02 14:10 | CCD | Continuity of Care Document ---
Author Author Stacie ALDRIDGE MD Organization Unknown Address [address] [facility], [address] [place] [address] Phone [phone] Care Team Providers Care Human Services Case Manager Name Role Phone Radha Fletcher AUTM [phone] Bev Lara P.A.-C AUTM [phone] Problems Description No Active Problems Social History Type Date Description Comments Sex Unknown ETOH Use Occasionally consumes alcohol Tobacco Use Start: Unknown Non Smoker Allergies and adverse reactions Description No Known Drug Allergies Medications Active Medications SIG Qnty Indications Ordering Provide r Date Suprep Bowel Prep Solution take per dr. biggs's instructions. QS Z12.11 Cristiano Biggs MD 06/24/[address] take 2 tabs by mouth 3 days prior to procedure per instructions. Z12.11 Cristiano Biggs MD 06/24/2015 Amoxicillin 500mg Tablets take 4 tabs (2 grams) by mouth 1 hour prior to procedure for prophylaxis. 4tabs Z 12.11 Cristiano Biggs MD 06/24/2015 Simvastatin 40mg Tablets 1 by mouth every day Unknown Spironolactone 25mg Tablets 1 by mouth every day Unknown Enalapril Maleate 2.5mg Tablets Unknown Furosemide 20mg Tablets prn Unknown Aspirin 81mg Tablets Take 1 tab daily. Unknown Immunizations Description No Information Available Vital Signs Date Vital Result Comment 06/24/2015 8:42am BP Systolic 118 mmHg BP Diastolic 70 mmHg Height 67 inches 5'7" Weight 235.00 lb BMI (Body Mass Index) 36.8 kg/m2 [place] Body Weight 148 lb Weight 106.596 kg BSA (Body Surface Area) 2.17 m2 Results Description No Information Available Procedures Date Code Description Status 12/07/2020 25992 Hospital Subsequent Care Level 2 Completed 12/07/2020 98745 Ultrasound Guidance For Vascular Access Requiring Ultrasound Eval Completed 12/07/2020 32322 Insertion Of [place] d Centrally Inserted Central Venous Catheter Completed Medical Devices Description No Information Available Encounters Type Date Location Provider Dx Diagnosis Office Visit 12/07/2020 10:00a [facility] Guilherme Aldridge MD N17.9 Acute kidney failure, unspec ified C90.00 Multiple myeloma not having achieved remission Assessments Date Code Description Provider 12/07/2020 N17.9 Acute kidney failure, unspecifie d Stephanie Aldridge MD 12/07/2020 C90.00 Multiple myeloma not having achi eved remission Stephanie Aldridge MD Plan of Treatment 06/24/2015 - Domenica Crump, TREVON-C* Z12.11 Encounter for screening for malignant neoplasm of colon * * New Medication:* Suprep Bowel Prep * Dulcolax 5 mg * Amoxicillin 500 mg * New Orders:* Colonoscopy, Ordered: 06/24/15 * Comments:* Will arrange for colonoscopy. Reviewed risks and benefits of the procedure, as well as other options, with the patient. Bowel prep procedure was discussed with patient, as well as risks and side effects associated with the bowel prep. Patient will take Amoxicillin one hour prior to his arrival time for the procedure due to his history of a mechanical heart valve. He was advised to take the medication with only sips of water. Patient verbalized understanding of all of the above and is in agreement to proceed. Patient will seek medical attention for any acute changes. Will monitor. * Follow up:* As scheduled, sooner if needed. Functional Status Description No Information Available Mental Status Description No Information Available Referrals Refer to Reason for Referral Status Appt Date Cristiano Biggs M.D. WEIGHT LOSS, EPIGASTRIC PAIN, BOWEL CHANGES Scheduled 09/07/2020 [facility], Gastroenterology [address] [facility], [address] [place] [address] [phone]
--- OUTSIDE RECORDS SUMMARY | 2021-02-02 14:10 | CCD ---
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 Activ e confirmed 738960643 Problem Prostate cancer screening Z12.5 Active confirmed 406223328 Problem Sleep disorder, unspecified G47.9 Active confirmed 62766411 Problem Nonrheumatic aortic (valve) stenosis I35.0 Act marquis confirmed 796659951 Problem Syncopal episodes R55 Active confirmed 27 6356948 Problem PVD (peripheral vascular disease) I73.9 Active confirmed 838624683 Problem Venous insufficiency I87.2 Active confirmed 98295170 Problem 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 Active confi rmed 69496469 Problem BMI 38.0-38.9,adult Z68.38 Active confirmed 769266116 Problem Morbid obesity due to excess calories E66.01 Ac tive confirmed 537282906 Problem Dilated cardiomyopathy I42.0 Active confirmed 822029027 Problem Atypical atrial flutter I48.4 Active confirmed 59865143772730967 Problem Mixed hyperlipidemia E78.2 Active confirmed 016204893 Problem Primary osteoarthritis, 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 Active confirmed 023482661 Problem Primary osteoarthritis, 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 71 Active confirmed 461456608 Problem 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 Active confirmed 681055113 Problem Lightheadedness R42 Active confirmed 3861 77190 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 405480883 Problem Cardiomyopathy I42.9 Active confirmed 19403 001 Problem Hyperlipidemia E78.5 Active confirmed 22273 004 Problem Pancytopenia D61.818 Active confirmed 004314 005 Problem 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 Active confirmed 48170424 Problem 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 Active confirmed 70895609 Problem Hypocomplementemia D84.1 Active confirmed 2 7506844 ALLERGIES No Known Allergies ENCOUNTERS from 1965 to 2020-12-28 Encounter Location Date Provider Diagnosis [address] [phone] [place] [address] Dec, Bev Lara IMMUNIZATIONS Vaccine Route Administration [...] Information RESULTS No Results REASON FOR VISIT predisone MEDICAL (GENERAL) HISTORY Type Description Date Medical History Hypertension Medical History Mixed Hyperlipidemia Medical History 10/26/15 Cardiac Ablasion Medical History Venous insufficiency Medical History Atrial flutter Medical History Dilated cardiomyopathy Medical History Systolic and diastolic congestive heart failure Medical History Aortic valve disease status post aVR bio prosthetic Medical History Obesity Surgical History Heart valve replaced - [facility] 2009 Surgical History Cardiac Ablation 10/2015 Hospitalization History [facility] Surgery 2010 Goals Section No Information Health Concerns No Information MEDICAL EQUIPMENT No Information MENTAL STATUS No Information FUNCTIONAL STATUS No Information ASSESSMENTS No Information PLAN OF TREATMENT Medication Medication Name Sig Start Date Stop Date predniSONE 10 MG 3 tablet Oral Once a day for 30 days Dec, Next Appt Details Provider Name:Yannidiamond Kwok, 2021-01-24 10:15:00 AM, [address] [place] [address], , [place], [place], [facility], Insurance Providers Payer Name Payer Address Payer Phone Insured Name Patient Relati onship to Insured Coverage Start Date Coverage End Date [facility] [employer] [facility] DEPT [address] [facility] [phone] KARLA TAPIA self MEDICAID [facility] [address] [facility] [id number] KARLA TAPIA self
--- OUTSIDE RECORDS SUMMARY | 2021-02-02 14:10 | CCD ---
Author Author [facility] Organization 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 Activ e confirmed 939694874 Problem Prostate cancer screening Z12.5 Active confirmed 009580047 Problem Sleep disorder, unspecified G47.9 Active confirmed 03329890 Problem Nonrheumatic aortic (valve) stenosis I35.0 Act marquis confirmed 420138232 Problem Syncopal episodes R55 Active confirmed 27 2378615 Problem PVD (peripheral vascular disease) I73.9 Active confirmed 475789351 Problem Venous insufficiency I87.2 Active confirmed 20128428 Problem 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 Active confi rmed 16959269 Problem BMI 38.0-38.9,adult Z68.38 Active confirmed 848088372 Problem Morbid obesity due to excess calories E66.01 Ac tive confirmed 152278935 Problem Dilated cardiomyopathy I42.0 Active confirmed 853482696 Problem Atypical atrial flutter I48.4 Active confirmed 10086640412788237 Problem Mixed hyperlipidemia E78.2 Active confirmed 958014162 Problem Primary osteoarthritis, 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 Active confirmed 676848452 Problem Primary osteoarthritis, 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 71 Active confirmed 049110775 Problem 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 Active confirmed 565825379 Problem Lightheadedness R42 Active confirmed 3864 99964 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 821604669 Problem Cardiomyopathy I42.9 Active confirmed 20879 001 Problem Hyperlipidemia E78.5 Active confirmed 28833 004 Problem Pancytopenia D61.818 Active confirmed 086293 005 Problem 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 Active confirmed 15025573 Problem 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 Active confirmed 42976597 Problem Hypocomplementemia D84.1 Active confirmed 2 9502483 ALLERGIES No Known Allergies ENCOUNTERS from 1965 to 2020-12-29 Encounter Location Date Provider Diagnosis [facility] Rheumatology [address] [facility] [phone] [place] [address] Dec, [facility] IMMUNIZATIONS Vaccine Route Administration Date Status Influenza [...] Obesity Surgical History Heart valve replaced - [facility] 2009 Surgical History Cardiac Ablation 10/2015 Hospitalization History [facility] Surgery 2009 Goals Section No Information Health Concerns No Information MEDICAL EQUIPMENT No Information MENTAL STATUS No Information FUNCTIONAL STATUS No Information ASSESSMENTS No Information PLAN OF TREATMENT Medication Medication Name Sig Start Date Stop Date predniSONE 10 MG 3 tablet Oral Once a day for 30 days Dec, Next Appt Details Provider Name:Yannidiamond Kwok, 2021-01-24 10:15:00 AM, [address] [place] [address], , [place], [place], [facility], Insurance Providers Payer Name Payer Address Payer Phone Insured Name Patient Relati onship to Insured Coverage Start Date Coverage End Date [facility] CORPORATE CLAIMS DEPT [address] [facility] [phone] KARLA TAPIA self MEDICA[id number] [address] [facility] [id number] KARLA TAPIA self
--- OUTSIDE RECORDS SUMMARY | 2021-02-02 14:10 | CCD ---
Author Author [facility] Organization [facility] Address Unknown Phone Unavailable Care Team Providers Care Driver Wheelchair Name Role Phone Yanni Kwok Unavailable PROBLEMS Type Condition ICD9-CM Code [id number] Code Onset Dates Condition S tatus W/U Status Risk SNOMED Code Notes Problem Hyperlipidemia E78.5 Active confirmed 95758 004 Problem Lightheadedness R42 Active confirmed 3866 58956 Problem Syncopal episodes R55 Active confirmed 27 2308416 Problem PVD (peripheral vascular disease) I73.9 Active confirmed 300377772 Problem Venous insufficiency I87.2 Active confirmed 46703415 Problem 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 Active confi rmed 69168089 Problem BMI 38.0-38.9,adult Z68.38 Active confirmed 762880101 Problem Colon cancer screening Z12.11 Active confirmed 192585470 Problem Morbid obesity due to excess calories E66.01 Ac tive confirmed 240591945 Problem Nonrheumatic aortic (valve) stenosis I35.0 Act marquis confirmed 720140662 Problem Sleep disorder, unspecified G47.9 Active confirmed 76027469 Problem Mixed hyperlipidemia E78.2 Active confirmed 877046301 Problem 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 Active confirmed 74955367 Problem Dilated cardiomyopathy I42.0 Active confirmed 202774517 Problem 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 Activ e confirmed 615968934 Problem Hypocomplementemia D84.1 Active confirmed 2 5586216 Problem Atypical atrial flutter I48.4 Active confirmed 68197928767033191 Problem Prostate cancer screening Z12.5 Active confirmed 474764166 Problem Cardiomyopathy I42.9 Active confirmed 68180 001 Problem Primary osteoarthritis, 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 Active confirmed 647183795 Problem Primary osteoarthritis, 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 71 Active confirmed 192201659 Problem Pancytopenia D61.818 Active confirmed 635158 005 Problem 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 Active confirmed 72874681 ALLERGIES No Known Allergies ENCOUNTERS from 1965 to 2020-11-10 Encounter Location Date Provider Diagnosis [facility] Rheumatology [address] [place] [address] [place] [address] Nov, [facility] IMMUNIZATIONS Vaccine Route Administration Date [...] Information RESULTS No Results REASON FOR VISIT Two Lab results missing MEDICAL (GENERAL) HISTORY Type Description Date Medical History Hypertension Medical History Mixed Hyperlipidemia Medical History 10/26/15 Cardiac Ablasion Medical History Venous insufficiency Medical History Atrial flutter Medical History Dilated cardiomyopathy Medical History Systolic and diastolic congestive heart failure Medical History Aortic valve disease status post aVR bio prosthetic Medical History Obesity Surgical History Heart valve replaced - [facility] 2009 Surgical History Cardiac Ablation 10/[address] [facility] 2010 Goals Section No Information Health Concerns No Information MEDICAL EQUIPMENT No Information MENTAL STATUS No Information FUNCTIONAL STATUS No Information ASSESSMENTS No Information PLAN OF TREATMENT Next Appt Details Provider Name:Yanni Kwok, 2020-11-12 04:15:00 PM, [address] [place] [address], , [place], [address], Provider Name:Bev Lara, 2020-12 08:45:00 AM, [address] [place] [address], , [place], [address], Provider Name:Bev Lara, 2020-12 08:30:00 AM, [address] [place] [address], , [place], [address], Insurance Providers Payer Name Payer Address Payer Phone Insured Name Patient Relati onship to Insured Coverage Start Date Coverage End Date MEDICAID [employer] [address] [facility] [id number] KARLA TAPIA self [employer] DEPT [address] [facility] [phone] KARLA TAPIA self
--- OUTSIDE RECORDS SUMMARY | 2021-02-02 14:12 | CCD ---
Author Author [facility] Organization [facility] Address Unknown Phone Unavailable Care Team Providers Care Corporate Tax Preparer Name Role Phone FOUZIA ALDRIDGE MD Unavailable Unavailable FOUZIA ALDRIDGE MD Unavailable Unavailable FOUZIA ALDRIDGE MD Unavailable Unavailable AgustinaenoFozia shabazz Unavailable Unavailable Fozia Colvin Unavailable Unavailable Fozia Colvin Unavailable Unavailable SymenoFozia shabazz Unavailable Unavailable SymenoFozia shabazz Unavailable Unavailable AgustinaenoFozia shabazz Unavailable Unavailable Fozia Colvin Unavailable Unavailable Fozia Colvin Unavailable Unavailable Fozia Colvin Unavailable Unavailable Fozia Colvin Unavailable Unavailable Fozia Colvin PA Unavailable Unavailable SymenoFzoia shabazz Unavailable Unavailable SymenoFozia shabazz Unavailable Unavailable Symenow, Fozia Anamika PA Unavailable Unavailable Symenow, Fozia Anamika PA Unavailable Unavailable Symenow, Fozia Anamika PA Unavailable Unavailable Symenow, Fozia Anamika PA Unavailable Unavailable Symenow, Fozia Anamika PA Unavailable Unavailable Symenow, Fozia Anamika PA Unavailable Unavailable Symenow, Fozia Anamika PA Unavailable Unavailable Symenow, Fozia Anamika PA Unavailable Unavailable Symenow, Fozia Anamika PA Unavailable Unavailable Symenow, Fozia Anamika PA Unavailable Unavailable Symenow, Fozia Anamika PA Unavailable Unavailable Symenow, Fozia Anamika PA Unavailable Unavailable Symenow, Fozia Anamika PA Unavailable Unavailable Symenow, Fozia Anamika PA Unavailable Unavailable Symenow, Fozia Anamika PA Unavailable Unavailable Symenow, Fozia Anamika PA Unavailable Unavailable Symenow, Fozai Anamika PA Unavailable Unavailable Symenow, Fozia Anamika PA Unavailable Unavailable Symenow, Fozia Anamika PA Unavailable Unavailable Symenow, Fozia Anamika PA Unavailable Unavailable Symenow, Fozia Anamika PA Unavailable Unavailable Emily Rg Unavailable Unavailable JUAN (MIRANDA), Janel CONNELLY MD Unavailable Unavailab le JUAN (MIRANDA), Janel CONNELLY MD Unavailable Unavailab le JUAN (MIRANDA), Janel CONNELLY MD Unavailable Unavailab le JUAN (MIRANDA), Janel CONNELLY MD Unavailable Unavailab le JUAN (MIRANDA), Janel CONNELLY MD Unavailable Unavailab le JUAN (MIRANDA), Janel CONNELLY MD Unavailable Unavailab le JUAN (MIRANDA), Jnael CONNELLY MD Unavailable Unavailab le JUAN (MIRANDA), Janel CONNELLY MD Unavailable Unavailab le JUAN (MIRANDA), Janel CONNELLY MD Unavailable Unavailab le JUAN (MIRANDA), Janel CONNELLY MD Unavailable Unavailab le JUAN (MIRANDA), Janel CONNELLY MD Unavailable Unavailab le JUAN (MIRANDA), Janel CONNELLY MD Unavailable Unavailab le JUAN (MIRANDA), Janel CONNELLY MD Unavailable Unavailab le JUAN (MIRANDA), Janel CONNELLY MD Unavailable Unavailab le JUAN (MIRANDA), Janel CONNELLY MD Unavailable Unavailab le JUAN (MIRANDA), Janel CONNELLY MD Unavailable Unavailab le JUAN (MIRANDA), Janel CONNELLY MD Unavailable Unavailab le JUAN (MIRANDA), Janel CONNELLY MD Unavailable Unavailab le JUAN (MIRANDA), Janel CONNELLY MD Unavailable Unavailab le JUAN (MIRANDA), Janel CONNELLY MD Unavailable Unavailab le JUAN (MIRANDA), Janel CONNELLY MD Unavailable Unavailab le JUAN (MIRANDA), Janel CONNELLY MD Unavailable Unavailab le JUAN (MIRANDA), Janel CONNELLY MD Unavailable Unavailab le JUAN (MIRANDA), Janel CONNELLY MD Unavailable Unavailab le JUAN (MIRANDA), Janel CONNELLY MD Unavailable Unavailab le JUAN (MIRANDA), Janel CONNELLY MD Unavailable Unavailab le JUAN (MIRANDA), Janel CONNELLY MD Unavailable Unavailab le JUAN (MIRANDA), Janel CONNELLY MD Unavailable Unavailab le JUAN (MIRANDA), Janel CONNELLY MD Unavailable Unavailab le JUAN (MIRANDA), Janel CONNELLY MD Unavailable Unavailab le JUAN (MIRANDA), Janel CONNELLY MD Unavailable Unavailab le JUAN (MIRANDA), Jnael CONNELLY MD Unavailable Unavailab le JUAN (MIRANDA), aJnel CONNELLY MD Unavailable Unavailab le JUAN (MIRANDA), Janel CONNELLY MD Unavailable Unavailab le JUAN (MIRANDA), Janel CONNELLY MD Unavailable Unavailab le JUAN (MIRANDA), Janel CONNELLY MD Unavailable Unavailab le JUAN (MIRANDA), Janel CONNELLY MD Unavailable Unavailab le JUAN (MIRANDA), Janel CONNELLY MD Unavailable Unavailab le JUAN (MIRANDA), Janel CONNELLY MD Unavailable Unavailab le JUAN (MIRANDA), Janel CONNELLY MD Unavailable Unavailab le JUAN (MIRANDA), Janel CONNELLY MD Unavailable Unavailab le JUAN (MIRANDA), Janel CONNELLY MD Unavailable Unavailab le JUAN (MIRANDA), Janel CONNELLY MD Unavailable Unavailab le JUAN (MIRANDA), Janel CONNELLY MD Unavailable Unavailab le JUAN (MIRANDA), Janel CONNELLY MD Unavailable Unavailab le JUAN (MIRANDA), Janel CONNELLY MD Unavailable Unavailab le JUAN (MIRANDA), Janel CONNELLY MD Unavailable Unavailab le JUAN (MIRANDA), Janel CONNELLY MD Unavailable Unavailab le JUAN (MIRANDA), Janel CONNELLY MD Unavailable Unavailab le JUAN (MIRANDA), Janel CONNELLY MD Unavailable Unavailab le JUAN (MIRANDA), Janel CONNELLY MD Unavailable Unavailab le JUAN (MIRANDA), Janel CONNELLY MD Unavailable Unavailab le JUAN (MIRANDA), Janel CONNELLY MD Unavailable Unavailab le JUAN (MIRANDA), Janel CONNELLY MD Unavailable Unavailab le JUAN (MIRANDA), Janel CONNELLY MD Unavailable Unavailab le JUAN (MIRANDA), Janel CONNELLY MD Unavailable Unavailab le JUAN (MIRANDA), Janel CONNELLY MD Unavailable Unavailab le JUAN (MIRANDA), Janel CONNELLY MD Unavailable Unavailab le JUAN (MIRANDA), Janel CONNELLY MD Unavailable Unavailab le JUAN (MIRANDA), Janel CONNELLY MD Unavailable Unavailab le JUAN (MIRANDA), Janel CONNELLY MD Unavailable Unavailab le JUAN (MIRANDA), Janel CONNELLY MD Unavailable Unavailab le JUAN (MIRANDA), Janel CONNELLY MD Unavailable Unavailab le JUAN (MIRANDA), Janel CONNELLY MD Unavailable Unavailab le JUAN (MIRANDA), Janel CONNELLY MD Unavailable Unavailab le JUAN (MIRANDA), Janel CONNELLY MD Unavailable Unavailab le JUAN (MIRANDA), Janel CONNELLY MD Unavailable Unavailab le JUAN (MIRANDA), Janel CONNELLY MD Unavailable Unavailab le JUAN (MIRANDA), Janel CONNELLY MD Unavailable Unavailab le JUAN (MIRANDA), Janel CONNELLY MD Unavailable Unavailab le JUAN (MIRANDA), Janel CONNELLY MD Unavailable Unavailab le JUAN (MIRANDA), Janel CONNELLY MD Unavailable Unavailab le JUAN (MIRANDA), Janel CONNELLY MD Unavailable Unavailab le JUAN (MIRANDA), Janel CONNELLY MD Unavailable Unavailab le JUAN (MIRANDA), Janel CONNELLY MD Unavailable Unavailab le JUAN (MIRANDA), Janel CONNELLY MD Unavailable Unavailab le JUAN (MIRANDA), Janel CONNELLY MD Unavailable Unavailab le JUAN (MIRANDA), Janel CONNELLY MD Unavailable Unavailab le JUAN (MIRANDA), Janel CONNELLY MD Unavailable Unavailab le JUAN (MIRANDA), Janel CONNELLY MD Unavailable Unavailab le JUAN (MIRANAD), Janel CONNELLY MD Unavailable Unavailab le JUAN (MIRANDA), Janel CONNELLY MD Unavailable Unavailab le JUAN (MIRANDA), Janel CONNELLY MD Unavailable Unavailab le JUAN (MIRANDA), Janel CONNELLY MD Unavailable Unavailab le JUAN (MIRANDA), Janel CONNELLY MD Unavailable Unavailab le JUAN (MIRANDA), Janel CONNELLY MD Unavailable Unavailab le JUAN (MIRANDA), Janel CONNELLY MD Unavailable Unavailab le SelenaFior MD Unavailable Unavailable Selena, B Leobardo CARLSON Unavailable Unavailable Selena, B Leobardo CARLSON Unavailable Unavailable Selena, B Leobardo CARLSON Unavailable Unavailable Selena, B Leobardo CARLSON Unavailable Unavailable Selena, B Leobardo CARLSON Unavailable Unavailable Selena, B Leobardo CARLSON Unavailable Unavailable Selena, B Leobardo CARLSON Unavailable Unavailable Selena, B Leobardo CARLSON Unavailable Unavailable Selena, B Leobardo CARLSON Unavailable Unavailable Selena, B Leobardo CARLSON Unavailable Unavailable Selena, B Leobardo CARLSON Unavailable Unavailable Selena, B Leobardo CARLSON Unavailable Unavailable Selena, B Leobardo CARLSON Unavailable Unavailable Selena, B Leobardokailey CARLSON Unavailable Unavailable Selena, B Leobardo CARLSON Unavailable Unavailable Selena, B Leobardo CARLSON Unavailable Unavailable Selena, B Leobardo CARLSON Unavailable Unavailable Selena, B Leobardo CARLSON Unavailable Unavailable Selena, B Leobardo CARLSON Unavailable Unavailable Selena, B Leobardo CARLSON Unavailable Unavailable Selena, B Leobardo CARLSON Unavailable Unavailable Selena, B Leobardo CARLSON Unavailable Unavailable Selena, B Leobardo CARLSON Unavailable Unavailable Selena, B Leobardo CARLSON Unavailable Unavailable Selena, B Leobardo CARLSON Unavailable Unavailable Selena, B Leobardo CARLSON Unavailable Unavailable Selena, B Leobardo CARLSON Unavailable Unavailable Selena, B Leobardo CARLSON Unavailable Unavailable Selena, B Leobardo CARLSON Unavailable Unavailable Selena, B Leobardo CARLSON Unavailable Unavailable Selena, B Leobardo CARLSON Unavailable Unavailable Selena, B Leobardo CARLSON Unavailable Unavailable Selena, B Leobardo CARLSON Unavailable Unavailable Selena, B Leobardo CARLSON Unavailable Unavailable Selena, B Leobardo CARLSON Unavailable Unavailable Arnold ALDRICH MD Unavailable Unavailable Arnold ALDRICH MD Unavailable Unavailable Arnold ALDRICH MD Unavailable Unavailable Arnold ALDRICH MD Unavailable Unavailable Arnold ALDRICH MD Unavailable Unavailable Arnold ALDRICH MD Unavailable Unavailable Arnold ALDRICH MD Unavailable Unavailable Arnold ALDRICH MD Unavailable Unavailable Arnold ALDRICH MD Unavailable Unavailable Arnold ALDRICH MD Unavailable Unavailable Arnold ALDRICH MD Unavailable Unavailable Arnold ALDRICH MD Unavailable Unavailable Arnold ALDRICH MD Unavailable Unavailable Arnold ALDRICH MD Unavailable Unavailable ALDRICH, Arnold ALVARENGA MD Unavailable Unavailable ALDRICH, Arnold ALVARENGA MD Unavailable Unavailable ALDRICH, Arnold ALVARENGA MD Unavailable Unavailable ALDRICH, Arnold ALVARENGA MD Unavailable Unavailable ALDRICH, Arnold ALVARENGA MD Unavailable Unavailable ALDRICH, Arnold ALVARENGA MD Unavailable Unavailable ALDRICH, Arnold ALVARENGA MD Unavailable Unavailable ALDRICH, Arnold ALVARENGA MD Unavailable Unavailable ALDRICH, Arnold ALVARENGA MD Unavailable Unavailable ALDRICH, E LYLE CARLSON Unavailable Unavailable ALDRICH, E LYLE CARLSON Unavailable Unavailable ALDRICH, Arnold ALVARNEGA MD Unavailable Unavailable ALDRICH, Arnold ALVARENGA MD Unavailable Unavailable ALDRICH, E LYLE CARLSON Unavailable Unavailable ALDRICH, Arnold ALVARENGA MD Unavailable Unavailable ALDRICH, E LYLE CARLSON Unavailable Unavailable ALDRICH, E LYLE CARLSON Unavailable Unavailable ALDRICH, E LYLE CARLSON Unavailable Unavailable ALDRICH, E LYLE CARLSON Unavailable Unavailable ALDRICH, Arnold ALVARENGA MD Unavailable Unavailable ALDRICH, E LYLE CARLSON Unavailable Unavailable ALDRICH, E LYLE CARLSON Unavailable Unavailable ALDRICH, E LYLE CARLSON Unavailable Unavailable ALDRICH, E LYLE CARLSON Unavailable Unavailable ALDRICH, E LYLE CARLSON Unavailable Unavailable ALDRICH, E LYLE CARLSON Unavailable Unavailable ALDRICH, Arnold ALVARENGA MD Unavailable Unavailable ALDRICH, Arnold ALVARENGA MD Unavailable Unavailable ALDRICH, E LYLE CARLSON Unavailable Unavailable ALDRICH, Arnold ALVARENGA MD Unavailable Unavailable ALDRICH, Arnold ALVARENGA MD Unavailable Unavailable ALDRICH, E LYLE CARLSON Unavailable Unavailable ALDRICH, E LYLE CARLSON Unavailable Unavailable ALDRICH, E LYLE CARLSON Unavailable Unavailable ALDRICH, E LYLE CARLSON Unavailable Unavailable ALDRICH, E LYLE CARLSON Unavailable Unavailable ALDRICH, E LYLE CARLSON Unavailable Unavailable ALDRICH, E LYLE CARLSON Unavailable Unavailable ALDRICH, E LYLE CARLSON Unavailable Unavailable ALDRICH, E LYLE CARLSON Unavailable Unavailable Wells, P Guillermina SENIOR EXAMINER Unavailable Unavailable Wells, P Guillermina SENIOR EXAMINER Unavailable Unavailable Wells, P Guillermina SENIOR EXAMINER Unavailable Unavailable Wells, Guillermina Unavailable Unavailable Re-disclosure Warning The records that you are about to access may contain information from federally-assisted alcohol or drug abuse programs. If such information is present, then the following federally mandated warning applies: This information has been disclosed to you from records protected by federal confidentiality rules (42 CFR part 2). The federal rules prohibit you from making any further disclosure of this information unless further disclosure is expressly permitted by the written consent of the person to whom it pertains or as otherwise permitted by 42 CFR part 2. A general authorization for the release of medical or other information is NOT sufficient for this purpose. The Federal rules restrict any use of the information to criminally investigate or prosecute any alcohol or drug abuse patient.The records that you are about to access may contain highly sensitive health information, the redisclosure of which is protected by Article 27-F of the [facility] Public Health law. If you continue you may have access to information: Regarding HIV / AIDS; Provided by facilities licensed or operated by the [facility] Office of Mental Health; or Provided by the [facility] Office for People With Developmental Disabilities. If such information is present, then the following [facility] mandated warning applies: This information has been disclosed to you from confidential records which are protected by state law. State law prohibits you from making any further disclosure of this information without the specific written consent of the person to whom it pertains, or as otherwise permitted by law. Any unauthorized further disclosure in violation of state law may result in a fine or care home sentence or both. A general authorization for the release of medical or other information is NOT sufficient authorization for further disc losure. Allergies and Adverse Reactions Type Description Substance Reaction Status Data Source(s ) Propensity to adverse reactions NO KNOWN ALLERGIES NO KNOWN ALLERGIES [facility] Family History Family Member Name Family Member Gender Family Member Status Date o f Status Description Data Source(s) Unknown Male Problem MEDENT ([facility] Unknown Unknown Problem MED[facility] ([facility] Unknown Unknown Problem MEDENT ([facility] Encounters Encounter Providers Location Date Indications Data Source(s ) Unknown [address] [facility] [place] [address] 01/25/2021 12:00:00 AM EST eCW1 ([facility]) Unknown [address] [facility] [place] [address] 01/24/2021 12:00:00 AM EST eCW1 ([facility]) Unknown [address] [facility] [place] [address] 01/24/2021 12:00:00 AM EST eCW1 ([facility]) Unknown [address] [facility] [place] [address] 01/24/2021 12:00:00 AM EST eCW1 ([facility]) Unknown [address] [facility] [place] [address] 01/21/2021 12:00:00 AM EST [facility]CW1 ([facility]) [place] [address] [facility] [place] [address] 12/30/2020 12:00:00 AM EDT [facility]1 ([facility] [place] [address] [facility] [place] [address] 12/28/2020 12:00:00 AM EDT eCW1 ([facility]) [place] [address] [facility] [place] [address] 12/27/2020 12:00:00 AM EDT eCW1 ([facility]) [place] [address] [facility] [place] [address] 12/21/2020 12:00:00 AM EDT eCW1 ([facility]) [place] [address] [facility] [place] [address] 12/21/2020 12:00:00 AM EDT eCW1 ([facility]) Outpatient [address] [facility] [place] [address] 12/20/2020 12:00:00 AM EDT eCW1 ([facility]) [place] [address] [facility] [place] [address] 12/15/2020 12:00:00 AM EDT eCW1 ([facility]) Outpatient Attender: MARCE Rucker/Roxy/Vinod/Lesly indl 12/07/2020 10:00:00 AM EDT MEDENT ([facility]) Outpatient Admitter: Armaan Cavazoserrer: Armaan Rg 12/02/2020 12:00:00 AM EDT Other pancytopenia [facility] Other pancytopenia Outpatient Attender: Leobardo Walters MD 11/30/2020 12:00:0 0 AM EDT [facility] Unknown [address] [facility] [place] [address] 11/30/2020 12:00:00 AM EDT [facility]CW1 ([facility] [place] [address] [facility] [place] [address] 11/30/2020 12:00:00 AM EDT eCW1 ([facility]) Outpatient Attender: Leobardo Walters MD 11/23/2020 12:00:0 0 AM EDT [facility] Outpatient [address] [facility] [place] [address] 11/18/2020 12:00:00 AM EDT eCW1 ([facility]) [place] [address] [facility] [place] [address] 11/12/2020 12:00:00 AM EDT eCW1 ([facility]) [place] [address] [facility] [place] [address] 11/09/2020 12:00:00 AM EDT eCW1 ([facility]) Outpatient [address] [facility] [place] [address] 10/22/2020 12:00:00 AM EDT eCW1 ([facility]) Out[place] [address] [facility] [place] [address] 09/29/2020 12:00:00 AM EDT eCW1 ([facility]) Unknown [address] [facility] [place] [address] 09/29/2020 12:00:00 AM EDT eCW1 ([facility]) Outpatient Attender: Anamika Colvin PA Main Office 08/25/2020 01:00:00 PM EDT MEDENT ([facility]) TeleMedicine Est. Pt. Level 3 [address] [place] [address] 08/18/2020 12:00:00 AM EDT eCW1 ([facility]) Outpatient Attender: Leobardo Walters MD [id number] 12:00:00 AM EDT - 08/17/2020 10:35:03 AM EDT [facility] Unknown [address] [facility] [place] [address] 08/05/2020 12:00:00 AM EDT eCW1 ([facility]) Unknown [address] [facility] [address] 07/27/2020 12:00:00 AM EDT eCW1 ([facility]) Outpatient Attender: Leobardo Walters MDAdmitter: Raz Walters MD [id number] 07/20/2020 12:00:00 AM EDT - 07/20/2020 12:36:55 PM EDT [facility] pancytopenia [facility] Other pancytopenia Attender: MARICEL MARTINEZ ([facility]) MDAttender: Guillermina CarbajalReferrer: LYLE ALDRICH MD 07/16/2020 08:21:05 PM EDT [facility] Unknown [address] [facility] [address] 07/15/2020 12:00:00 AM EDT eCW1 ([facility]) Unknown [address] [facility] [address] 07/13/2020 12:00:00 AM EDT eCW1 ([facility]) Attender: MARICEL MARTINEZ ([facility]) MDAttender: Guillermina Carbajal RNPReferrer: LYLE ALDRICH MD 07/12/2020 08:21:05 PM EDT [facility] Attender: MARICEL MARTINEZ ([place]) MDReferrer: Mel ALDRICH MD 07/12/2020 08:21:05 PM EDT [facility] Attender: MARICEL MARTINEZ MD ([place]) 08:21:05 PM EDT [facility] Unknown [address] [facility] [address] 07/08/2020 12:00:00 AM EDT eCW1 ([facility]) Unknown [address] [facility] [address] 07/07/2020 12:00:00 AM EDT eCW1 ([facility]) Unknown [address] [facility] [place] [address] 07/05/2020 12:00:00 AM EDT eCW1 ([facility]) [place] [address] [facility] [place] [address] 07/02/2020 12:00:00 AM EDT eCW1 ([facility]) Out[place] [address] [facility] [place] [address] 07/01/2020 12:00:00 AM EDT eCW1 ([facility]) Outpatient [address] [facility] [place] [address] 06/25/2020 12:00:00 AM EDT eCW1 ([facility]) [place] [address] [facility] [place] [address] 06/22/2020 12:00:00 AM EDT eCW1 ([facility]) Unknown [address] [facility] [place] [address] 06/22/2020 12:00:00 AM EDT eCW1 ([facility]) Unknown [address] [facility] [place] [address] 06/22/2020 12:00:00 AM EDT eCW1 ([facility]) Outpatient [address] [facility] [place] [address] 06/22/2020 12:00:00 AM EDT eCW1 ([facility]) Outpatient [address] [facility] [place] [address] 06/21/2020 12:00:00 AM EDT eCW1 ([facility]) Unknown [address] [facility] [place] [address] 06/17/2020 12:00:00 AM EDT eCW1 ([facility]) Unknown [address] [facility] [place] [address] 06/17/2020 12:00:00 AM EDT eCW1 ([facility]) Unknown [address] [facility] [place] [address] 06/16/2020 12:00:00 AM EDT eCW1 ([facility]) Out[place] [address] [facility] [place] [address] 06/15/2020 12:00:00 AM EDT eCW1 ([facility]) [place] [address] [facility] [place] [address] 04/15/2020 12:00:00 AM EST eCW1 ([facility]) Outpatient [address] [facility] [place] [address] 03/11/2020 12:00:00 AM EST eCW1 ([facility]) [place] [address] [facility] [place] [address] 12/10/2019 12:00:00 AM EDT eCW1 ([facility]) Immunizations Vaccine Date Status Description Data Source(s) COVID-19 VACCINE Moderna 01/14/2021 12:00:00 AM EST completed [facility] Vaccine Series Complete: YESThis Data wa s Submitted to [facility] Via [employer]. COVID-19 VACCINE Moderna 2020 12:00:00 AM EDT completed [facility] Vaccine Series Complete: YESThis Data wa s Submitted to [facility] [employer]. COVID-19 VACCINE Moderna 04/30/2020 12:00:00 AM EST completed [facility] Vaccine Series Complete: NOThis Data was Submitted to [facility] Via [employer]. pneumococcal polysaccharide PPV23 03/11/2020 03:25:00 PM EST comple sarah eCW1 ([facility]) pneumococcal polysaccharide PPV23 03/11/2020 03:25:00 PM EST comple saarh eCW1 ([facility]) pneumococcal polysaccharide PPV23 03/11/2020 03:25:00 PM EST comple sarah eCW1 ([facility]) pneumococcal polysaccharide PPV23 03/11/2020 03:25:00 PM EST comple sarah eCW1 ([facility]) pneumococcal polysaccharide PPV23 03/11/2020 03:25:00 PM EST comple sarah eCW1 ([facility]) pneumococcal polysaccharide PPV23 03/11/2020 03:25:00 PM EST comple sarah eCW1 ([facility]) pneumococcal polysaccharide PPV23 03/11/2020 03:25:00 PM EST comple sarah eCW1 ([facility]) pneumococcal polysaccharide PPV23 03/11/2020 03:25:00 PM EST comple sarah eCW1 ([facility]) pneumococcal polysaccharide PPV23 03/11/2020 03:25:00 PM EST comple sarah eCW1 ([facility]) pneumococcal polysaccharide PPV23 03/11/2020 03:25:00 PM EST comple sarah eCW1 ([facility]) pneumococcal polysaccharide PPV23 03/11/2020 03:25:00 PM EST comple sarah eCW1 ([facility]) pneumococcal polysaccharide PPV23 03/11/2020 03:25:00 PM EST comple sarah eCW1 ([facility]) pneumococcal polysaccharide PPV23 03/11/2020 03:25:00 PM EST comple sarah eCW1 ([facility]) pneumococcal polysaccharide PPV23 03/11/2020 03:25:00 PM EST comple sarah eCW1 ([facility]) pneumococcal polysaccharide PPV23 03/11/2020 03:25:00 PM EST comple sarah eCW1 ([facility]) pneumococcal polysaccharide PPV23 03/11/2020 03:25:00 PM EST comple sarah eCW1 ([facility]) pneumococcal polysaccharide PPV23 03/11/2020 03:25:00 PM EST comple sarah eCW1 ([facility]) pneumococcal polysaccharide PPV23 03/11/2020 03:25:00 PM EST comple sarah eCW1 ([facility]) pneumococcal polysaccharide PPV23 03/11/2020 03:25:00 PM EST comple sarah eCW1 ([facility]) pneumococcal polysaccharide PPV23 03/11/2020 03:25:00 PM EST comple sarah eCW1 ([facility]) pneumococcal polysaccharide PPV23 03/11/2020 03:25:00 PM EST comple sarah eCW1 ([facility]) pneumococcal polysaccharide PPV23 03/11/2020 03:25:00 PM EST comple sarah eCW1 ([facility]) pneumococcal polysaccharide PPV23 03/11/2020 03:25:00 PM EST comple sarah eCW1 ([facility]) pneumococcal polysaccharide PPV23 03/11/2020 03:25:00 PM EST comple sarah eCW1 ([facility]) pneumococcal polysaccharide PPV23 03/11/2020 03:25:00 PM EST comple sarah eCW1 ([facility]) pneumococcal polysaccharide PPV23 03/11/2020 03:25:00 PM EST comple sarah eCW1 ([facility]) pneumococcal polysaccharide PPV23 03/11/2020 03:25:00 PM EST comple sarah eCW1 ([facility]) pneumococcal polysaccharide PPV23 03/11/2020 03:25:00 PM EST comple sarah eCW1 ([facility]) pneumococcal polysaccharide PPV23 03/11/2020 03:25:00 PM EST comple sarah eCW1 ([facility]) pneumococcal polysaccharide PPV23 03/11/2020 03:25:00 PM EST comple sarah eCW1 ([facility]) pneumococcal polysaccharide PPV23 03/11/2020 03:25:00 PM EST comple sarah eCW1 ([facility]) pneumococcal polysaccharide PPV23 03/11/2020 03:25:00 PM EST comple sarah eCW1 ([facility]) pneumococcal polysaccharide PPV23 03/11/2020 03:25:00 PM EST comple sarah eCW1 ([facility]) pneumococcal polysaccharide PPV23 03/11/2020 03:25:00 PM EST comple sarah eCW1 ([facility]) pneumococcal polysaccharide PPV23 03/11/2020 03:25:00 PM EST comple sarah eCW1 ([facility]) pneumococcal polysaccharide PPV23 03/11/2020 03:25:00 PM EST comple sarah eCW1 ([facility]) pneumococcal polysaccharide PPV23 03/11/2020 03:25:00 PM EST comple sarah eCW1 ([facility]) pneumococcal polysaccharide PPV23 03/11/2020 03:25:00 PM EST comple sarah eCW1 ([facility]) pneumococcal polysaccharide PPV23 03/11/2020 03:25:00 PM EST comple sarah eCW1 ([facility]) pneumococcal polysaccharide PPV23 03/11/2020 03:25:00 PM EST comple sarah eCW1 ([facility]) pneumococcal polysaccharide PPV23 03/11/2020 03:25:00 PM EST comple sarah eCW1 ([facility]) pneumococcal polysaccharide PPV23 03/11/2020 03:25:00 PM EST comple sarah eCW1 ([facility]) Tdap 03/11/2020 03:23:00 PM EST completed e CW1 ([facility]) Tdap 03/11/2020 03:23:00 PM EST completed e CW1 ([facility]) Tdap 03/11/2020 03:23:00 PM EST completed e CW1 ([facility]) Tdap 03/11/2020 03:23:00 PM EST completed e CW1 ([facility]) Tdap 03/11/2020 03:23:00 PM EST completed e CW1 ([facility]) Tdap 03/11/2020 03:23:00 PM EST completed e CW1 ([facility]) Tdap 03/11/2020 03:23:00 PM EST completed e CW1 ([facility]) Tdap 03/11/2020 03:23:00 PM EST completed e CW1 ([facility]) Tdap 03/11/2020 03:23:00 PM EST completed e CW1 ([facility]) Tdap 03/11/2020 03:23:00 PM EST completed e CW1 ([facility]) Tdap 03/11/2020 03:23:00 PM EST completed e CW1 ([facility]) Tdap 03/11/2020 03:23:00 PM EST completed e CW1 ([facility]) Tdap 03/11/2020 03:23:00 PM EST completed e CW1 ([facility]) Tdap 03/11/2020 03:23:00 PM EST completed e CW1 ([facility]) Tdap 03/11/2020 03:23:00 PM EST completed e CW1 ([facility]) Tdap 03/11/2020 03:23:00 PM EST completed e CW1 ([facility]) Tdap 03/11/2020 03:23:00 PM EST completed e CW1 ([facility]) Tdap 03/11/2020 03:23:00 PM EST completed e CW1 ([facility]) Tdap 03/11/2020 03:23:00 PM EST completed e CW1 ([facility]) Tdap 03/11/2020 03:23:00 PM EST completed e CW1 ([facility]) Tdap 03/11/2020 03:23:00 PM EST completed e CW1 ([facility]) Tdap 03/11/2020 03:23:00 PM EST completed e CW1 ([facility]) Tdap 03/11/2020 03:23:00 PM EST completed e CW1 ([facility]) Tdap 03/11/2020 03:23:00 PM EST completed e CW1 ([facility]) Tdap 03/11/2020 03:23:00 PM EST completed e CW1 ([facility]) Tdap 03/11/2020 03:23:00 PM EST completed e CW1 ([facility]) Tdap 03/11/2020 03:23:00 PM EST completed e CW1 ([facility]) Tdap 03/11/2020 03:23:00 PM EST completed e CW1 ([facility]) Tdap 03/11/2020 03:23:00 PM EST completed e CW1 ([facility]) Tdap 03/11/2020 03:23:00 PM EST completed e CW1 ([facility]) Tdap 03/11/2020 03:23:00 PM EST completed e CW1 ([facility]) Tdap 03/11/2020 03:23:00 PM EST completed e CW1 ([facility]) Tdap 03/11/2020 03:23:00 PM EST completed e CW1 ([facility]) Tdap 03/11/2020 03:23:00 PM EST completed e CW1 ([facility]) Tdap 03/11/2020 03:23:00 PM EST completed e CW1 ([facility]) Tdap 03/11/2020 03:23:00 PM EST completed e CW1 ([facility]) Tdap 03/11/2020 03:23:00 PM EST completed e CW1 ([facility]) Tdap 03/11/2020 03:23:00 PM EST completed e CW1 ([facility]) Tdap 03/11/2020 03:23:00 PM EST completed e CW1 ([facility]) Tdap 03/11/2020 03:23:00 PM EST completed e CW1 ([facility]) Tdap 03/11/2020 03:23:00 PM EST completed e CW1 ([facility]) Tdap 03/11/2020 03:23:00 PM EST completed e CW1 ([facility]) influenza, recombinant, quadrIvalent,injectable, prese rvative free 12/10/2019 01:34:00 PM EDT completed eCW1 ([facility]) influenza, recombinant, quadrIvalent,injectable, prese rvative free 12/10/2019 01:34:00 PM EDT completed eCW1 ([facility]) influenza, recombinant, quadrIvalent,injectable, prese rvative free 12/10/2019 01:34:00 PM EDT completed eCW1 ([facility]) influenza, recombinant, quadrIvalent,injectable, prese rvative free 12/10/2019 01:34:00 PM EDT completed eCW1 ([facility]) influenza, recombinant, quadrIvalent,injectable, prese rvative free 12/10/2019 01:34:00 PM EDT completed eCW1 ([facility]) influenza, recombinant, quadrIvalent,injectable, prese rvative free 12/10/2019 01:34:00 PM EDT completed eCW1 ([facility]) influenza, recombinant, quadrIvalent,injectable, prese rvative free 12/10/2019 01:34:00 PM EDT completed eCW1 ([facility]) influenza, recombinant, quadrIvalent,injectable, prese rvative free 12/10/2019 01:34:00 PM EDT completed eCW1 ([facility]) influenza, recombinant, quadrIvalent,injectable, prese rvative free 12/10/2019 01:34:00 PM EDT completed eCW1 ([facility]) influenza, recombinant, quadrIvalent,injectable, prese rvative free 12/10/2019 01:34:00 PM EDT completed eCW1 ([facility]) influenza, recombinant, quadrIvalent,injectable, prese rvative free 12/10/2019 01:34:00 PM EDT completed eCW1 ([facility]) influenza, recombinant, quadrIvalent,injectable, prese rvative free 12/10/2019 01:34:00 PM EDT completed eCW1 ([facility]) influenza, recombinant, quadrIvalent,injectable, prese rvative free 12/10/2019 01:34:00 PM EDT completed eCW1 ([facility]) influenza, recombinant, quadrIvalent,injectable, prese rvative free 12/10/2019 01:34:00 PM EDT completed eCW1 ([facility]) influenza, recombinant, quadrIvalent,injectable, prese rvative free 12/10/2019 01:34:00 PM EDT completed eCW1 ([facility]) influenza, recombinant, quadrIvalent,injectable, prese rvative free 12/10/2019 01:34:00 PM EDT completed eCW1 ([facility]) influenza, recombinant, quadrIvalent,injectable, prese rvative free 12/10/2019 01:34:00 PM EDT completed eCW1 ([facility]) influenza, recombinant, quadrIvalent,injectable, prese rvative free 12/10/2019 01:34:00 PM EDT completed eCW1 ([facility]) influenza, recombinant, quadrIvalent,injectable, prese rvative free 12/10/2019 01:34:00 PM EDT completed eCW1 ([facility]) influenza, recombinant, quadrIvalent,injectable, prese rvative free 12/10/2019 01:34:00 PM EDT completed eCW1 ([facility]) influenza, recombinant, quadrIvalent,injectable, prese rvative free 12/10/2019 01:34:00 PM EDT completed eCW1 ([facility]) influenza, recombinant, quadrIvalent,injectable, prese rvative free 12/10/2019 01:34:00 PM EDT completed eCW1 ([facility]) influenza, recombinant, quadrIvalent,injectable, prese rvative free 12/10/2019 01:34:00 PM EDT completed eCW1 ([facility]) influenza, recombinant, quadrIvalent,injectable, prese rvative free 12/10/2019 01:34:00 PM EDT completed eCW1 ([facility]) influenza, recombinant, quadrIvalent,injectable, prese rvative free 12/10/2019 01:34:00 PM EDT completed eCW1 ([facility]) influenza, recombinant, quadrIvalent,injectable, prese rvative free 12/10/2019 01:34:00 PM EDT completed eCW1 ([facility]) influenza, recombinant, quadrIvalent,injectable, prese rvative free 12/10/2019 01:34:00 PM EDT completed eCW1 ([facility]) influenza, recombinant, quadrIvalent,injectable, prese rvative free 12/10/2019 01:34:00 PM EDT completed eCW1 ([facility]) influenza, recombinant, quadrIvalent,injectable, prese rvative free 12/10/2019 01:34:00 PM EDT completed eCW1 ([facility]) influenza, recombinant, quadrIvalent,injectable, prese rvative free 12/10/2019 01:34:00 PM EDT completed eCW1 ([facility]) influenza, recombinant, quadrIvalent,injectable, prese rvative free 12/10/2019 01:34:00 PM EDT completed eCW1 ([facility]) influenza, recombinant, quadrIvalent,injectable, prese rvative free 12/10/2019 01:34:00 PM EDT completed eCW1 ([facility]) influenza, recombinant, quadrIvalent,injectable, prese rvative free 12/10/2019 01:34:00 PM EDT completed eCW1 ([facility]) influenza, recombinant, quadrIvalent,injectable, prese rvative free 12/10/2019 01:34:00 PM EDT completed eCW1 ([facility]) influenza, recombinant, quadrIvalent,injectable, prese rvative free 12/10/2019 01:34:00 PM EDT completed eCW1 ([facility]) influenza, recombinant, quadrIvalent,injectable, prese rvative free 12/10/2019 01:34:00 PM EDT completed eCW1 ([facility]) influenza, recombinant, quadrIvalent,injectable, prese rvative free 12/10/2019 01:34:00 PM EDT completed eCW1 ([facility]) influenza, recombinant, quadrIvalent,injectable, prese rvative free 12/10/2019 01:34:00 PM EDT completed eCW1 ([facility]) influenza, recombinant, quadrIvalent,injectable, prese rvative free 12/10/2019 01:34:00 PM EDT completed eCW1 ([facility]) influenza, recombinant, quadrIvalent,injectable, prese rvative free 12/10/2019 01:34:00 PM EDT completed eCW1 ([facility]) influenza, recombinant, quadrIvalent,injectable, prese rvative free 12/10/2019 01:34:00 PM EDT completed eCW1 ([facility]) influenza, recombinant, quadrIvalent,injectable, prese rvative free 12/10/2019 01:34:00 PM EDT completed eCW1 ([facility]) influenza, recombinant, quadrIvalent,injectable, prese rvative free 12/10/2019 01:34:00 PM EDT completed eCW1 ([facility]) Medications Medication Brand Name Start Date Product Form Dose Route Admi nistrative Instructions Pharmacy Instructions Status Indications Reaction Description Data Source(s) 500 mg calcium (1,250 mg) 01/11/2021 12:00:00 AM EST tablet 60 TAKE ONE TABLET BY MOUTH WITH BREAKFAST AND TAKE ONE ONE TABLET WITH LUNCH TAKE ONE TABLET BY MOUTH WITH BREAKFAST AND TAKE ONE ONE TABLET WITH LUNCH SOLD: 01/12/2021 [facility] pantoprazole 40 MG Delayed Release Oral Tablet PANTOPRAZOLE SODIUM 01/11/2021 12:00:00 AM EST tablet,delayed release (DR/EC) 30 T AMILCAR ONE TABLET BY MOUTH EVERY DAY TAKE ONE TABLET BY MOUTH EVERY DAY SOLD: 01/12/2021 [facility] 25 mg 01/10/2021 12:00:00 AM EST tablet 30 TAKE ONE TABLET BY MOUTH EVERY DAY TAKE ONE TABLET BY MOUTH EVERY DAY SOLD: 01/12/2021 [facility] Sulfamethoxazole 400 MG / Trimethoprim 80 MG Oral Tabl et 400-80 mg SULFAMETHOXAZOLE/TRIMETHOPRIM 01/05/2021 12:00:00 AM EDT tablet 30 TAKE ONE TABLET BY MOUTH THREE TIMES A DAY AFTER DIALYSIS TREATMENT TAKE ONE TABLET BY MOUTH THREE TIMES A DAY AFTER DIALYSIS TREATMENT SOLD: 01/12/2021 [facility] 1,250 mcg (50,000 unit) 12/28/2020 12:00:00 AM EDT capsule 4 TAKE ONE CAPSULE BY MOUTH WEEKLY TAKE ONE CAPSULE BY MOUTH WEEKLY SOLD: 01/03/2021 [facility] 10 mg 12/24/2020 12:00:00 AM EDT tablet 90 TAKE THREE TABLETS BY MOUTH EVERY DAY TAKE THREE TABLETS BY MOUTH EVERY DAY SOLD: 12/28/2020 [facility] Prednisone 10 MG Oral Tablet predniSONE 10 MG predniSONE 10 MG 12/23/2020 12:00:00 AM EDT 3.0 {tablet} active pr edniSONE 10 MG eCW1 ([facility]) Prednisone 10 MG Oral Tablet predniSONE 10 MG predniSONE 10 MG 12/23/2020 12:00:00 AM EDT 3.0 {tablet} active pr edniSONE 10 MG eCW1 ([facility]) Prednisone 10 MG Oral Tablet predniSONE 10 MG predniSONE 10 MG 12/23/2020 12:00:00 AM EDT 3.0 {tablet} active pr edniSONE 10 MG eCW1 ([facility]) Prednisone 10 MG Oral Tablet predniSONE 10 MG predniSONE 10 MG 12/23/2020 12:00:00 AM EDT 3.0 {tablet} active pr edniSONE 10 MG eCW1 ([facility]) Prednisone 10 MG Oral Tablet predniSONE 10 MG predniSONE 10 MG 12/23/2020 12:00:00 AM EDT 3.0 {tablet} active pr edniSONE 10 MG eCW1 ([facility]) Prednisone 10 MG Oral Tablet predniSONE 10 MG predniSONE 10 MG 12/23/2020 12:00:00 AM EDT 3.0 {tablet} active pr edniSONE 10 MG eCW1 ([facility]) Prednisone 10 MG Oral Tablet predniSONE 10 MG predniSONE 10 MG 12/23/2020 12:00:00 AM EDT 3.0 {tablet} active pr edniSONE 10 MG eCW1 ([facility]) Prednisone 10 MG Oral Tablet predniSONE 10 MG predniSONE 10 MG 12/23/2020 12:00:00 AM EDT 3.0 {tablet} active pr edniSONE 10 MG eCW1 ([facility]) Prednisone 10 MG Oral Tablet predniSONE 10 MG predniSONE 10 MG 12/23/2020 12:00:00 AM EDT 3.0 {tablet} active pr edniSONE 10 MG eCW1 ([facility]) Prednisone 10 MG Oral Tablet predniSONE 10 MG predniSONE 10 MG 12/23/2020 12:00:00 AM EDT 3.0 {tablet} active pr edniSONE 10 MG eCW1 ([facility]) 20 mg 12/22/2020 12:00:00 AM EDT tablet 10 TAKE TWO TABLETS BY MOUTH EVERY DAY FOR 5 DAYS TAKE TWO TABLETS BY MOUTH EVERY DAY FOR 5 DAYS SOLD: 021 [facility] Prednisone 20 MG Oral Tablet predniSONE 20 MG predniSONE 20 MG 12/21/2020 12:00:00 AM EDT 2.0 {tablets} active p redniSONE 20 MG eCW1 ([facility]) Prednisone 20 MG Oral Tablet predniSONE 20 MG predniSONE 20 MG 12/21/2020 12:00:00 AM EDT 2.0 {tablets} active p redniSONE 20 MG eCW1 ([facility]) Prednisone 20 MG Oral Tablet predniSONE 20 MG predniSONE 20 MG 12/21/2020 12:00:00 AM EDT 2.0 {tablets} active p redniSONE 20 MG eCW1 ([facility]) Prednisone 20 MG Oral Tablet predniSONE 20 MG predniSONE 20 MG 12/21/2020 12:00:00 AM EDT 2.0 {tablets} active p redniSONE 20 MG eCW1 ([facility]) Prednisone 20 MG Oral Tablet predniSONE 20 MG predniSONE 20 MG 12/21/2020 12:00:00 AM EDT 2.0 {tablets} active p redniSONE 20 MG eCW1 ([facility]) Prednisone 20 MG Oral Tablet predniSONE 20 MG predniSONE 20 MG 12/21/2020 12:00:00 AM EDT 2.0 {tablets} active p redniSONE 20 MG eCW1 ([facility]) Prednisone 20 MG Oral Tablet predniSONE 20 MG predniSONE 20 MG 12/21/2020 12:00:00 AM EDT 2.0 {tablets} active p redniSONE 20 MG eCW1 ([facility]) Prednisone 20 MG Oral Tablet predniSONE 20 MG predniSONE 20 MG 12/21/2020 12:00:00 AM EDT 2.0 {tablets} active p redniSONE 20 MG eCW1 ([facility]) Prednisone 20 MG Oral Tablet predniSONE 20 MG predniSONE 20 MG 12/21/2020 12:00:00 AM EDT 2.0 {tablets} active p redniSONE 20 MG eCW1 ([facility]) Prednisone 20 MG Oral Tablet predniSONE 20 MG predniSONE 20 MG 12/21/2020 12:00:00 AM EDT 2.0 {tablets} active p redniSONE 20 MG eCW1 ([facility]) Prednisone 20 MG Oral Tablet predniSONE 20 MG predniSONE 20 MG 12/21/2020 12:00:00 AM EDT 2.0 {tablets} active p redniSONE 20 MG eCW1 ([facility]) Prednisone 20 MG Oral Tablet predniSONE 20 MG predniSONE 20 MG 12/21/2020 12:00:00 AM EDT 2.0 {tablets} active p redniSONE 20 MG eCW1 ([facility]) pantoprazole 40 MG Delayed Release Oral Tablet PANTOPRAZOLE SODIUM 12/14/2020 12:00:00 AM EDT tablet,delayed release (DR/EC) 30 T AMILCAR ONE TABLET BY MOUTH EVERY DAY TAKE ONE TABLET BY MOUTH EVERY DAY SOLD: 12/14/2020 [facility] 20 mg 12/14/2020 12:00:00 AM EDT tablet 14 TAKE THREE TABLETS BY MOUTH EVERY MORNING TAKE THREE TABLETS BY MOUTH EVERY MORNING SOLD: 12/14/2020 [facility] Calcium Carbonate 1250 MG / Cholecalcife rol 200 UNT Oral Tablet 500 mg(1,250mg) -200 unit CALCIUM CARBONATE/VITAMIN D3 12/14/2020 12:00:00 AM EDT tablet 30 TAKE TWO TABLETS BY MOUTH EVERY DAY TAKE TWO TABLETS BY MOUTH EVERY DAY SOLD: 12/14/2020 [facility] atorvastatin 40 MG Oral Tablet ATORVASTATIN CALCIUM 07/15/2020 1 2:00:00 AM EDT tablet 30 TAKE ONE TABLET BY MOUTH EVERY D AY TAKE ONE TABLET BY MOUTH EVERY DAY SOLD: 01/12/2021 [facility] atorvastatin 40 MG Oral Tablet ATORVASTATIN CALCIUM 07/15/2020 1 2:00:00 AM EDT tablet 30 TAKE ONE TABLET BY MOUTH EVERY D AY TAKE ONE TABLET BY MOUTH EVERY DAY SOLD: 12/14/2020 [facility] atorvastatin 40 MG Oral Tablet ATORVASTATIN CALCIUM 07/15/2020 1 2:00:00 AM EDT tablet 30 TAKE ONE TABLET BY MOUTH EVERY D AY TAKE ONE TABLET BY MOUTH EVERY DAY SOLD: 07/27/2020 [facility] atorvastatin 40 MG Oral Tablet ATORVASTATIN CALCIUM 07/15/2020 1 2:00:00 AM EDT tablet 30 TAKE ONE TABLET BY MOUTH EVERY D AY TAKE ONE TABLET BY MOUTH EVERY DAY SOLD: 10/27/2020 [facility] POLYETHYLENE GLYCOL 3350 050804 MG / Pot assium Chloride 2970 MG / Sodium Bicarbonate 6740 MG / Sodium Chloride 5860 MG / sodium sulfate 14513 MG Powder for Oral Solution [Gavilyte-G] 236-22.74-6.74 -5.86 gram [id number] SULF,BICARB,CL/KCL 07/12/2020 12:00:00 AM EDT recon soln 4000 USE DIRECTED BY [facility] USE DIRECTED BY [facility] SOLD: 07/27/2020 [facility] doxycycline hyclate 100 MG Oral Tablet Doxycycline Hyc late 100 MG Doxycycline Hyclate 100 MG 06/23/2020 12:00:00 AM EDT 1.0 {tablet} active Doxycycline Hyclate 100 MG eCW1 ([facility]) doxycycline hyclate 100 MG Oral Tablet Doxycycline Hyc late 100 MG Doxycycline Hyclate 100 MG 06/23/2020 12:00:00 AM EDT 1.0 {tablet} active Doxycycline Hyclate 100 MG eCW1 ([facility]) doxycycline hyclate 100 MG Oral Tablet Doxycycline Hyc late 100 MG Doxycycline Hyclate 100 MG 06/23/2020 12:00:00 AM EDT 1.0 {tablet} active Doxycycline Hyclate 100 MG eCW1 ([facility]) doxycycline hyclate 100 MG Oral Tablet Doxycycline Hyc late 100 MG Doxycycline Hyclate 100 MG 06/23/2020 12:00:00 AM EDT 1.0 {tablet} active Doxycycline Hyclate 100 MG eCW1 ([facility]) doxycycline hyclate 100 MG Oral Tablet Doxycycline Hyc late 100 MG Doxycycline Hyclate 100 MG 06/23/2020 12:00:00 AM EDT 1.0 {tablet} active Doxycycline Hyclate 100 MG eCW1 ([facility]) doxycycline hyclate 100 MG Oral Tablet Doxycycline Hyc late 100 MG Doxycycline Hyclate 100 MG 06/23/2020 12:00:00 AM EDT 1.0 {tablet} active Doxycycline Hyclate 100 MG eCW1 ([facility]) doxycycline hyclate 100 MG Oral Tablet Doxycycline Hyc late 100 MG Doxycycline Hyclate 100 MG 06/23/2020 12:00:00 AM EDT 1.0 {tablet} active Doxycycline Hyclate 100 MG eCW1 ([facility]) doxycycline hyclate 100 MG Oral Tablet Doxycycline Hyc late 100 MG Doxycycline Hyclate 100 MG 06/23/2020 12:00:00 AM EDT 1.0 {tablet} active Doxycycline Hyclate 100 MG eCW1 ([facility]) doxycycline hyclate 100 MG Oral Tablet Doxycycline Hyc late 100 MG Doxycycline Hyclate 100 MG 06/23/2020 12:00:00 AM EDT 1.0 {tablet} active Doxycycline Hyclate 100 MG eCW1 ([facility]) doxycycline hyclate 100 MG Oral Tablet Doxycycline Hyc late 100 MG Doxycycline Hyclate 100 MG 06/23/2020 12:00:00 AM EDT 1.0 {tablet} active Doxycycline Hyclate 100 MG eCW1 ([facility]) doxycycline hyclate 100 MG Oral Tablet Doxycycline Hyc late 100 MG Doxycycline Hyclate 100 MG 06/23/2020 12:00:00 AM EDT 1.0 {tablet} active Doxycycline Hyclate 100 MG eCW1 ([facility]) doxycycline hyclate 100 MG Oral Tablet Doxycycline Hyc late 100 MG Doxycycline Hyclate 100 MG 06/23/2020 12:00:00 AM EDT 1.0 {tablet} active Doxycycline Hyclate 100 MG eCW1 ([facility]) doxycycline hyclate 100 MG Oral Tablet Doxycycline Hyc late 100 MG Doxycycline Hyclate 100 MG 06/23/2020 12:00:00 AM EDT 1.0 {tablet} active Doxycycline Hyclate 100 MG eCW1 ([facility]) doxycycline hyclate 100 MG Oral Tablet Doxycycline Hyc late 100 MG Doxycycline Hyclate 100 MG 06/23/2020 12:00:00 AM EDT 1.0 {tablet} active Doxycycline Hyclate 100 MG eCW1 ([facility]) doxycycline hyclate 100 MG Oral Tablet Doxycycline Hyc late 100 MG Doxycycline Hyclate 100 MG 06/23/2020 12:00:00 AM EDT 1.0 {tablet} active Doxycycline Hyclate 100 MG eCW1 ([facility]) doxycycline hyclate 100 MG Oral Tablet Doxycycline Hyc late 100 MG Doxycycline Hyclate 100 MG 06/23/2020 12:00:00 AM EDT 1.0 {tablet} active Doxycycline Hyclate 100 MG eCW1 ([facility]) doxycycline hyclate 100 MG Oral Tablet Doxycycline Hyc late 100 MG Doxycycline Hyclate 100 MG 06/23/2020 12:00:00 AM EDT 1.0 {tablet} active Doxycycline Hyclate 100 MG eCW1 ([facility]) doxycycline hyclate 100 MG Oral Tablet Doxycycline Hyc late 100 MG Doxycycline Hyclate 100 MG 06/23/2020 12:00:00 AM EDT 1.0 {tablet} active Doxycycline Hyclate 100 MG eCW1 ([facility]) doxycycline hyclate 100 MG Oral Tablet Doxycycline Hyc late 100 MG Doxycycline Hyclate 100 MG 06/23/2020 12:00:00 AM EDT 1.0 {tablet} active Doxycycline Hyclate 100 MG eCW1 ([facility]) doxycycline hyclate 100 MG Oral Tablet Doxycycline Hyc late 100 MG Doxycycline Hyclate 100 MG 06/23/2020 12:00:00 AM EDT 1.0 {tablet} active Doxycycline Hyclate 100 MG eCW1 ([facility]) doxycycline hyclate 100 MG Oral Tablet DOXYCYCLINE HYCLATE 0 06/23/2020 12:00:00 AM EDT tablet 56 TAKE ONE TABLET BY MOUTH PATRICIA RY 12 HOURS TAKE ONE TABLET BY MOUTH EVERY 12 HOURS SOLD: 06/23/2020 [facility] 2.5 mg 05/25/2020 12:00:00 AM EDT tablet 30 TAKE ONE TABLET BY MOUTH AT BEDTIME TAKE ONE TABLET BY MOUTH AT BEDTIME SOLD: 07/27/2020 [facility] 2.5 mg 05/25/2020 12:00:00 AM EDT tablet 30 TAKE ONE TABLET BY MOUTH AT BEDTIME TAKE ONE TABLET BY MOUTH AT BEDTIME SOLD: 06/17/2020 [facility] 2.5 mg 05/25/2020 12:00:00 AM EDT tablet 30 TAKE ONE TABLET BY MOUTH AT BEDTIME TAKE ONE TABLET BY MOUTH AT BEDTIME SOLD: 06/23/2020 [facility] 400 mg 04/27/2020 12:00:00 AM EST tablet 60 TAKE ONE TABLET BY MOUTH TWICE A DAY WITH BREAKFAST AND DINNER TAKE ONE TABLET BY MOUTH TWICE A DAY WIT H BREAKFAST AND DINNER SOLD: 01/12/2021 [facility] 400 mg 04/27/2020 12:00:00 AM EST tablet 60 TAKE ONE TABLET BY MOUTH TWICE A DAY WITH BREAKFAST AND DINNER TAKE ONE TABLET BY MOUTH TWICE A DAY WIT H BREAKFAST AND DINNER SOLD: 10/27/2020 [facility] 400 mg 04/27/2020 12:00:00 AM EST tablet 60 TAKE ONE TABLET BY MOUTH TWICE A DAY WITH BREAKFAST AND DINNER TAKE ONE TABLET BY MOUTH TWICE A DAY WIT H BREAKFAST AND DINNER SOLD: 06/17/2020 [facility] 400 mg 04/27/2020 12:00:00 AM EST tablet 60 TAKE ONE TABLET BY MOUTH TWICE A DAY WITH BREAKFAST AND DINNER TAKE ONE TABLET BY MOUTH TWICE A DAY WIT H BREAKFAST AND DINNER SOLD: 12/14/2020 [facility] 400 mg 04/27/2020 12:00:00 AM EST tablet 60 TAKE ONE TABLET BY MOUTH TWICE A DAY WITH BREAKFAST AND DINNER TAKE ONE TABLET BY MOUTH TWICE A DAY WIT H BREAKFAST AND DINNER SOLD: 07/27/2020 [facility] 400 mg 04/27/2020 12:00:00 AM EST tablet 60 TAKE ONE TABLET BY MOUTH TWICE A DAY WITH BREAKFAST AND DINNER TAKE ONE TABLET BY MOUTH TWICE A DAY WIT H BREAKFAST AND DINNER SOLD: 04/28/2020 [facility] Atenolol 25 MG Oral Tablet ATENOLOL 03/11/2020 12:00:00 AM EST tablet 30 TAKE ONE TABLET BY MOUTH EVERY DAY TAKE ONE TABLET BY MOUTH EVERY DAY SOLD: 06/17/2020 [facility] 25 mg 03/11/2020 12:00:00 AM EST tablet 30 TAKE ONE TABLET BY MOUTH EVERY DAY TAKE ONE TABLET BY MOUTH EVERY DAY SOLD: 10/27/2020 [facility] 25 mg 03/11/2020 12:00:00 AM EST tablet 30 TAKE ONE TABLET BY MOUTH EVERY DAY TAKE ONE TABLET BY MOUTH EVERY DAY SOLD: 12/14/2020 [facility] Aten[facility]ol 25 MG Oral Tablet ATENOLOL 03/11/2020 12:00:00 AM EST tablet 30 TAKE ONE TABLET BY MOUTH EVERY DAY TAKE ONE TABLET BY MOUTH EVERY DAY SOLD: 05/01/2020 [facility] Atenolol 25 MG Oral Tablet ATENOLOL 03/11/2020 12:00:00 AM EST tablet 30 TAKE ONE TABLET BY MOUTH EVERY DAY TAKE ONE TABLET BY MOUTH EVERY DAY SOLD: 03/11/2020 [facility] 25 mg 03/11/2020 12:00:00 AM EST tablet 30 TAKE ONE TABLET BY MOUTH EVERY DAY TAKE ONE TABLET BY MOUTH EVERY DAY SOLD: 07/27/2020 [facility] atorvastatin 40 MG Oral Tablet ATORVASTATIN CALCIUM 11/12/2019 1 2:00:00 AM EDT tablet 30 TAKE ONE TABLET BY MOUTH EVERY D AY TAKE ONE TABLET BY MOUTH EVERY DAY SOLD: 12/26/2019 [facility] atorvastatin 40 MG Oral Tablet ATORVASTATIN CALCIUM 11/12/2019 1 2:00:00 AM EDT tablet 30 TAKE ONE TABLET BY MOUTH EVERY D AY TAKE ONE TABLET BY MOUTH EVERY DAY SOLD: 03/11/2020 [facility] atorvastatin 40 MG Oral Tablet ATORVASTATIN CALCIUM 11/12/2019 1 2:00:00 AM EDT tablet 30 TAKE ONE TABLET BY MOUTH EVERY D AY TAKE ONE TABLET BY MOUTH EVERY DAY SOLD: 04/27/2020 [facility] atorvastatin 40 MG Oral Tablet ATORVASTATIN CALCIUM 11/12/2019 1 2:00:00 AM EDT tablet 30 TAKE ONE TABLET BY MOUTH EVERY D AY TAKE ONE TABLET BY MOUTH EVERY DAY SOLD: 01/28/2020 [facility] atorvastatin 40 MG Oral Tablet ATORVASTATIN CALCIUM 11/12/2019 1 2:00:00 AM EDT tablet 30 TAKE ONE TABLET BY MOUTH EVERY D AY TAKE ONE TABLET BY MOUTH EVERY DAY SOLD: 06/17/2020 [facility] 400 mg 06/18/2019 12:00:00 AM EDT tablet 60 TAKE ONE TABLET BY MOUTH TWICE A DAY (TAKE WITH BREAKFAST AND DINNER) TAKE ONE TABLET BY MOUTH TWICE A DAY (TA KE WITH BREAKFAST AND DINNER) SOLD: 01/16/2020 [facility] 400 mg 06/18/2019 12:00:00 AM EDT tablet 60 TAKE ONE TABLET BY MOUTH TWICE A DAY (TAKE WITH BREAKFAST AND DINNER) TAKE ONE TABLET BY MOUTH TWICE A DAY (TA KE WITH BREAKFAST AND DINNER) SOLD: 03/13/2020 [facility] 2.5 mg 06/06/2019 12:00:00 AM EDT tablet 30 TAKE ONE TABLET BY MOUTH AT BEDTIME TAKE ONE TABLET BY MOUTH AT BEDTIME SOLD: 12/26/2019 [facility] 25 mg 06/06/2019 12:00:00 AM EDT tablet 30 TAKE ONE TABLET BY MOUTH EVERY DAY TAKE ONE TABLET BY MOUTH EVERY DAY SOLD: 12/26/2019 [facility] 2.5 mg 06/06/2019 12:00:00 AM EDT tablet 30 TAKE ONE TABLET BY MOUTH AT BEDTIME TAKE ONE TABLET BY MOUTH AT BEDTIME SOLD: 03/11/2020 [facility] 2.5 mg 06/06/2019 12:00:00 AM EDT tablet 30 TAKE ONE TABLET BY MOUTH AT BEDTIME TAKE ONE TABLET BY MOUTH AT BEDTIME SOLD: 04/27/2020 [facility] 2.5 mg 06/06/2019 12:00:00 AM EDT tablet 30 TAKE ONE TABLET BY MOUTH AT BEDTIME TAKE ONE TABLET BY MOUTH AT BEDTIME SOLD: 01/28/2020 [facility] Atenolol 25 MG Oral Tablet ATENOLOL 06/06/2019 12:00:00 AM EDT tablet 30 TAKE ONE TABLET BY MOUTH EVERY DAY TAKE ONE TABLET BY MOUTH EVERY DAY SOLD: 01/28/2020 [facility] Insurance Providers Payer name Policy type / Coverage type Policy ID Covered alliance party ID Covered alliance party's relationship to bledsoe Policy B[place]e Plan Information [employer] [id number] Self [employer] Commercial [id number] Self [id number] [employer] BC/BS Ppo Medigap Part B [id number] Self Z [id number] [employer] BC/BS Ppo Medigap Part B [id number] Self [employer] BC/BS Ppo Medigap Part B [id number] Self [id number] [employer] BC/BS Ppo Medigap Part B [id number] Self [id number] [employer] BC/BS Ppo Medigap Part B [id number] Self Z [id number] [employer] BC/BS Ppo Medigap Part B [id number] [id number] Self Z [id number] [employer] BC/BS Ppo Medigap Part B [id number] [id number] Self Z [id number] [employer] Blue Ppo Medigap Part B [id number] Self V [id number] [employer] Blue Ppo Medigap Part B [id number] [id number] Self V [id number] [employer] Blue Ppo Medigap Part B [id number] [id number] Self V [id number] [employer] Blue Ppo Medigap Part B [id number] [id number] Self V [id number] [employer] Blue Ppo Medigap Part B [id number] Self [employer] Blue Ppo Medigap Part B [id number] Self V [id number] [employer] Blue Ppo Medigap Part B [id number] [id number] Self V [id number] BC/BS Of [facility] [id number] Self Simply Blue Ppo Commercial [id number] Self Simply Blue Ppo Medigap Part B [id number] Self V [id number] Simply [employer] Ppo Medigap Part B [id number] [id number] Self V [id number] [employer] Ppo Medigap Part B [id number] [id number] Self V [id number] Simply [employer] Ppo Medigap Part B [id number] [id number] Self V [id number] Simply [employer] Ppo Medigap Part B [id number] [id number] Self V [id number] Simply [employer] Ppo Medigap Part B [id number] [id number] Self V [id number] [employer] BCBS [id number] Jeana VYS [id number] [facility] [place] MEDICAID [id number] STUART I [id number] Self [id number] STUART I [id number] Self [id number] [employer] MARKET [id number] S [id number] BCBS OF [place] [id number] S VY [id number] BCBS [place] WATN PPO 302/307 [id number] SP [id number] BCBS [employer] Ppo U/W Commercial [id number] Self V [id number] [place]BS [place] [id number] S VY [id number] [place] [place] [id number] S VYS [id number] BCBS [employer] Ppo U/W Commercial [id number] Self V [id number] BCBS [place] WATN PPO 302/307 [id number] SP [id number] BCBS [employer] Ppo U/W Commercial [id number] Self MEDICAID [id number] SP [id number] [place] [id number] SP [id number] STUART [id number] SP [id number] EXCELLUS BCBS B [id number] S VYS [id number] STATE INSURANCE FUND [place] [id number] S [id number] BC/BS Of [place] Medigap Part B [id number] Self MVP Health Maintenance Organization (HMO) [id number] Se lf BC/BS Of [place] Medigap Part B [id number] Self TIMELESS FRANES [id number] S [id number] SELF PAY SP UNAVAILABLE S [place] [id number] SP [id number] E BCBS [employer] U/W Commercial [id number] Self [id number] BS [place] Commercial [id number] Self V [id number] BCBS [employer] U/W Commercial [id number] Self [id number] BCBS [employer] Ppo U/W Commercial [id number] Self V [id number] BCBS [place] WATN PPO 302/307 [id number] SP [id number] STUART [id number] SP [id number] BCBS [employer] Ppo U/W Commercial [id number] Self V [id number] Problems, Conditions, and Diagnoses Code Display Name Description Problem Type Effective Dates Data Source(s) D61.818 Other pancytopenia Other pancytopenia Diagnosis 10:36:00 AM EDT [facility] D50.9 [id number] Iron deficiency anemia, unspecif ied iron deficiency anemia type Problem 01/24/2021 12:00:00 AM EST eCW1 ([facility]) 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: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 eCW1 ([facility]) D89.2 [id number] Hypergammaglobulinemia Problem 11/12/2020 12 :00:00 AM EDT eCW1 ([facility]) D84.1 08291591 Hypocomplementemia Problem 10/22/2020 12:00: 00 AM EDT eCW1 ([facility]) D72.820 [id number] Atypical lymphocytosis Problem 07/07/2020 12 :00:00 AM EDT eCW1 ([facility]) 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 Problem 07/02/2020 12:00:00 AM EDT eCW1 ([facility]) D61.818 [id number] Pancytopenia Problem 06/25/2020 12:00:00 AM EDT eCW1 ([facility]) M19.071 [id number] Primary osteoarthritis, right ankle and f oot Problem 12/10/2019 12:00:00 AM EDT eCW1 ([facility]) M19.072 [id number] Primary osteoarthritis, left ankle and fo ot Problem 12/10/2019 12:00:00 AM EDT eC ([facility]) Surgeries/Procedures Procedure Description Date Indications Data Source(s) Insertion Of Tunneled Centrally Inserted Central Venous Cath eter 12/07/2020 12:00:00 AM EDT [facility] ([facility], ) Ultrasound Guidance For Vascular Access Requiring Ultrasound Eval 12/07/2020 12:00:00 AM EDT [facility] ([facility], ) SBSQ HOSPITAL CARE/DAY 25 MINUTES 12/07/2020 12:00:00 AM EDT [facility] ([facility], ) ECG ROUTINE ECG W/LEAST 12 LDS W/I&R 08/25/2020 12:00: 00 AM EDT [facility] ([facility]) OFFICE OUTPATIENT VISIT 25 MINUTES 08/25/2020 12:00:00 AM EDT [facility] ([facility]) THROMBOPLASTIN TIME PARTIAL PLASMA/WHOLE BLOOD <td>PAR TIAL THROMBOPLASTIN TIME (PTT)</td><td>Routine</td><td>07/20/2020 1:00 PM EDT</td><td> Pancytopenia</td><td> </td> 07/20/2020 01:00:00 PM EDT [facility] Pancytopenia THROMBOPLASTIN TIME PARTIAL PLASMA/WHOLE BLOOD <td>HEX AGONAL PHASE PHOSPHO NEUT</td><td>Routine</td><td>07/20/2020 1:00 PM EDT</td><td> Pancytopenia</td><td> </td> 07/20/2020 01:00:00 PM [facility]T [facility] IRON <td>TOTAL FE BINDING CAPACIT Y</td><td>Routine</td><td>07/20/2020 1:00 PM EDT</td><td> Pancytopenia</td><td> </td> 07/20/2020 01:00:00 PM EDT [facility] COPPER <td>COPPER, PLASMA</td><td>R outine</td><td>07/20/2020 1:00 PM EDT</td><td> Pancytopenia</td><td> </td> 07/20/2020 01:00:00 PM EDT [facility] SEDIMENTATION RATE RBC AUTOMATED <td>SEDIMENTATION RAT E, AUTOMATED</td><td>Routine</td><td>07/20/2020 1:00 PM EDT</td><td> Pancytopenia</td><td> </td> 07/20/2020 01:00:00 PM EDT [facility] BLOOD COUNT RETICULOCYTE AUTOMATED <td>RETICULOCYTES</td><td>Routine</td><td>07/20/2020 1:00 PM EDT</td><td> Pancytopenia</td><td> </td> 07/20/2020 01:00:00 PM EDT [facility] BLOOD COUNT COMPLETE AUTO&AUTO DIFRNTL WBC COUNT <td>C BC AND DIFFERENTIAL</td><td>STAT</td><td>07/20/2020 1:00 PM EDT</td><td> Pancytopenia</td><td> </td> 07/20/2020 01:00:00 PM EDT [facility] RHEUMATOID FACTOR QUANTITATIVE <td>RHEUMATOID FACTOR</td><td>Routine</td><td>07/20/2020 1:00 PM EDT</td><td> Pancytopenia</td><td> </td> 07/20/2020 01:00:00 PM EDT [facility] C-REACTIVE PROTEIN HIGH SENSITIVITY <td>CARDIAC HIGH S ENSITIVE C-REACTIVE PROTEIN (HS-CRP)</td><td>Routine</td><td>07/20/2020 1:00 PM EDT</td><td> Pancytopenia</td><td> </td> 07/20/2020 01:00:00 PM EDT [facility] Pancytopenia THYROID STIMULATING HORMONE TSH <td>TSH</td><td>Routin e</td><td>07/20/2020 1:00 PM EDT</td><td> Pancytopenia</td><td> </td> 07/20/2020 01:00:00 PM EDT [facility] LACTATE DEHYDROGENASE LDH <td>LACTATE DEHYDROGENASE</td><td>Routine</td><td>07/20/2020 1:00 PM EDT</td><td> Pancytopenia</td><td> </td> 07/20/2020 01:00:00 PM EDT [facility] HAPTOGLOBIN QUANTITATIVE <td>HAPTOGLOBIN</td><td>Rout ine</td><td>07/20/2020 1:00 PM EDT</td><td> Pancytopenia</td><td> </td> 07/20/2020 01:00:00 PM EDT [facility] Pancytopenia FERRITIN <td>FERRITIN LEVEL</td><td>R outine</td><td>07/20/2020 1:00 PM EDT</td><td> Pancytopenia</td><td> </td> 07/20/2020 01:00:00 PM EDT [facility] CYANOCOBALAMIN VITAMIN B-12 <td>VITAMIN B12</td><td>Ro utine</td><td>07/20/2020 1:00 PM EDT</td><td> Pancytopenia</td><td> </td> 07/20/2020 01:00:00 PM [facility]T [facility] COMPREHENSIVE METABOLIC PANEL <td>COMPREHENSIVE METABO LIC PANEL</td><td>STAT</td><td>07/20/2020 1:00 PM EDT</td><td> Pancytopenia</td><td> </td> 07/20/2020 01:00:00 PM EDT [facility] KAPPA/LAMBDA FREE SERUM <td>KAPPA/LAMBDA FREE SERUM</td><td>Routine</td><td>07/20/2020 12:45 PM EDT</td><td> Pancytopenia</td><td> </td> 07/20/2020 12:45:00 PM EDT [facility] P[facility] HEMATOPATHOLOGY <td>HEMATOPATHOLOGY</td><td> Routine</td><td>07/20/2020 12:45 PM EDT</td><td> Pancytopenia</td><td> </td> 07/20/2020 12:45:00 PM [facility]T [facility] BETA 2 GLYCOPROTEIN I ANTIBODY EACH <td>B2 GLYCOPROTEI N IGG/IGM</td><td>Routine</td><td>07/20/2020 12:45 PM EDT</td><td> Pancytopenia</td><td> </td> 07/20/2020 12:45:00 PM EDT [facility] CARDIOLIPIN ANTIBODY EACH IG CLASS <td>CARDIOLIPIN ANT IBODY, IGM</td><td>Routine</td><td>07/20/2020 12:45 PM EDT</td><td> Pancytopenia</td><td> </td> 07/20/2020 12:45:00 PM EDT [facility] CARDIOLIPIN ANTIBODY EACH IG CLASS <td>CARDIOLIPIN ANT IBODY, IGG</td><td>Routine</td><td>07/20/2020 12:45 PM EDT</td><td> Pancytopenia</td><td> </td> 07/20/2020 12:45:00 PM EDT [facility] IMMUNOFIXJ ELECTROPHORESIS SERUM <td>IMMUNOFIXATION ELECTROPHORESIS</td><td>Routine</td><td>07/20/2020 12:45 PM EDT</td><td> Pancytopenia</td><td> </td> 07/20/2020 12:45:00 PM EDT [facility] ANTINUCLEAR ANTIBODIES MICHELL <td>MICHELL</td><td>Routine</td ><td>07/20/2020 12:45 PM EDT</td><td> Pancytopenia</td><td> </td> 07/20/2020 12:45:00 PM EDT [facility] PROTEIN XCPT REFRACTOMETRY SERUM PLASMA/WHL BLD <td>WA OTEIN ELECTROPHORESIS WITH SERUM TOTAL PROTEIN</td><td>Routine</td><td>07/20/2020 12:45 PM EDT</td><td> Pancytopenia</td><td> </td> 07/20/2020 12:45:00 PM EDT [facility] FOLIC ACID SERUM <td>FOLATE</td><td>Routine</ td><td>07/20/2020 12:45 PM EDT</td><td> Pancytopenia</td><td> </td> 07/20/2020 12:45:00 PM EDT [facility] MOLECULAR DIAGNOSTICS, ONCOLOGY <td>MOLECULAR DIAGNOST ICS, ONCOLOGY</td><td>Routine</td><td>07/20/2020 12:00 AM EDT</td><td></td><td> </td> 07/20/2020 12:00:00 AM EDT [facility] ECHO TTHRC R-T 2D W/WOM-MODE COMPL SPEC&COLR DOP 06/23 12:00:00 AM EDT [facility] ([facility]) Immunization: Boostrix 0.5mL IM (TDAP) 03/11/2020 12:0 0:00 AM EST eCW1 ([facility]) PNEUMOCOCCAL POLYSAC VACCINE 23-V 2 />YR SUBQ/IM 03/11 12:00:00 AM EST eCW1 ([facility]) Immunization: Flublok Quadrivalent (18 years & older) 0.5mL IM (Influenza) 12/10/2019 12:00:00 AM EDT eCW1 ([facility]) Results ID Date Data Source [id number] 12/13/2020 09:06:00 AM EDT [facility] Name Value Range Interpretation Code Description Data Anastasiia rce(s) Supporting Document(s) SARS coronavirus 2 RNA [Presence] in Res piratory specimen by ANNA with probe detection NEGATIVE [facility] This lab was ordered by [facility] a nd reported by [facility]. ID Date Data Source [id number] 12/14/2020 07:05:00 AM EDT [facility] Name Value Range Interpretation Code Description Data Anastasiia rce(s) Supporting Document(s) Referral Test Name [facility] ICK BORNE DNA PANEL Referral Lab [facility] Referral Test Code or Mnemonic [facility] TKPNL Referral Test Results [facility] Reference lab report sent via fax. ID Date Data Source [id number] 12/07/2020 11:52:00 AM EDT [facility] Hematopathology Report See Addendum Bebeto wName: KARLA TAPIAMRN: [id number] Number: [id number] Date: 12/02/2020 10:30Received Date: 12/03/2020 13:06Physician(s): ARMAAN RG MD VYAS, SHIKHAR G,[facility] [place] [facility]) ReceivedA: Bone Marrow, Flow Cytometry; received 1 green top bone marrow and 1extra EDTA bone marrow sent to [facility] HistoryAnemia, acute renal failure, pancytopenia.TEST REQUESTED/PERFORMED: Flow Cytometry Analysis. DiagnosisFlow cytometry of bone marrow: No evidence of leukemia, non- Hodgkinlymphoma, plasma cell neoplasm, increased blasts, or a dysplasticphenotype. Martha Francisco M.D.;Resident PathologistElectronically Signed By Che Wright M.D. Attending Pathologist 12/07/2020 11:52:42The attending pathologist named above attests that he/she has personallyreviewed the relevant preparation(s) for the specimen(s) and rendered thefinal diagnosis. Addendum 12/28/2020 Cytogenetics Report [id number] shows a normal karyotype. The mario gnosisremains unchanged. Addendum Electronically Signed By: Che Wright M.D. 12/28/2020 15:07 ProceduresFlow Cytometry Date Ordered:12/03/2020 Status: Signed Out12/06/2020 InterpretationPERIPHERAL BLOOD: CBC performed at [facility], [address] [place] [address] on 12/02/20.WBC *1.8 K/uLRBC *2.54 M/uLHgb *6.9 g/dLHct *20.5 %MCV 80.7 fLMCH 27.2 pgMCHC 33.7 g/dLRDW *16.8 %Platelets *84 K/ulDifferential Count (automated):41.1 % Neutrophils 1.1 % Eosinophils 1.1 % Tmhfpcasd37.4 % Lymphocytes 0.6 % Atypical Lymphocytes 6.7 % Monocytes-------100.0 % A peripheral blood film is reviewed. BONE MARROW ASPIRATE:Differential Count (100 cells):39 % Erythroid Precursors 4 % Fpvckjgcknkey70 % N. Ehzwajxzcc46 % N. Metamyelocytes and Band Forms17 % Neutrophils 1 % Eosinophils 4 % Lymphocytes 3 % Monocytes 3 % Plasma Cells--------100 % Morphology: Plasma cells are small- intermediate in size witheccentrically placed nuclei, perinuclear hof and deeply basophiliccytoplasm. Lymphoid Panel: Manjit Quinones HP21 [id number] following markers were assayed: CD45 (gate), CD2, CD3, CD4, CD5, CD7,CD8, CD10, CD11c, CD19,CD20, CD22, CD23, CD25, CD33, CD34, CD38, CD56, CD57, CD64, CD103, CD117,CD123, HLA-DR, [place],Lambda, and FMC7.# events: [id number]: 82%Flow Cytometry Differential (CD45/SSC)Lymphocyte [place]: 21%CD45 dim [place]: 1%Monocyte [place]: 4%Granulocyte [place]: 59%Nucleated/Erythroid [place]: 6%The lymphocyte gate showsB-cells (CD19): 22%T-cells (CD3): 60%NK-cells (CD3-/CD56+): 21%[place]/Lambda Ratio: 1.4CD4/CD8 Ratio: 3.7Results: (expressed as % of lymphocyte gate)B-cell markers: [place] = 6, Lambda = 3, CD19 = 12, CD20 = 17, CD22 = 24,CD19/10 = 4,CD19/CD5 = 1, CD19/CD23 = 11, FMC7 = 18, CD38/CD20 = 12Light chain as % of B-Cells: CD19/[place] = 40, CD19/Lambda = 24CD19/CD5/[place] = 2, CD19/CD5/Lambda = 1CD19/CD10/[place] = 9, CD19/CD10/Lambda = 4CD38 on CD19/5 positive cells: 73%T-cell Markers: CD2 = 83, CD3 = 60, CD3/CD4 = 46, CD3/CD8 = 12, CD5 = 70,CD7 = 59, CD3/57 = 16NK-cell Markers: CD56 = 21, CD57 = 30Other Markers: CD25 = 55, CD103 = 66, CD11c = 21, CD103/CD11c = 14,CD103/25 = 45, CD103/22 = 2CD10 = 4, CD38 = 69Results: (expressed as % of CD45 dim gate)B-cell markers: [place] = 1, Lambda = 1, CD19 = 2, CD20 = 6, CD22 = 20,CD19/10 = 36,CD19/CD5 = 15, CD19/CD23 = 2, FMC7 = 5, CD38/CD20 = 1Light chain as % of B-Cells: CD19/[place] = 15, CD19/Lambda = 9CD19/CD10/[place] = 4, CD19/CD10/Lambda = 5T-cell Markers: CD2 = 20, CD3 = 2, CD3/CD4 = 0, CD3/CD8 = 1, CD5 = 48, CD7= 7, CD3/57 = 0NK-cell Markers: CD56 = 12, CD57 = 5Basophil Markers: CD123 (HLA-DR-) = 36Other Markers: CD10 = 63, CD38 = 23, CD33 = 7, CD34 = 20, CD64 = 44, CD117= 17, CD123 = 67,HLA-DR = 34, CD25 = 1, CD103 = 17, CD11c = 18Myeloma Panel for Manjit Quinones [id number] following markers were assayed: CD45 (cell gate), CD138 (plasma cellgate), CD19, CD20,CD38, CD56, cytoplasmic [place], and cytoplasmic Lambda. (Please note, thatCytoplasmicKappa and Cytoplasmic Lambda are used to detect plasma cells, whilesurface [place] andLambda are for lymphocytes).# events: [id number]: Routinely a minimum of 500,000 events are collected in each paneltube. Due to samplecellularity and/or processing this number was not achievable for thissample.Viability: 83%Flow Cytometry Differential:Lymphocyte [place]: 14%CD45 dim [place]: 2%Monocyte [place]: 3%Granulocyte [place]: 40%NRBC [place]: 5%CD138 Plasma Cell [place]: 0%Results: (expressed as % of lymphocyte gate)B-Cells (CD19): 13%CD19 = 13, CD20 = 14Light chain as % of B-Cells: Cytoplasmic [place]/CD20 = 18, CytoplasmicLambda/CD20 = 18Results: (expressed as % of total CD138+ plasma cell gate)CD38 = 0, CD56 = 0, CD38/56 = 0, CD19 = 0, CD20 = 67Cytoplasmic [place]/CD138 = 100, Cytoplasmic Lambda/CD138 = 100Results-CommentsLymphocytes consist predominantly of T cells with normal expression of panT-cell markers and a normal CD4/CD8 ratio, normal proportions of NK andcytotoxic T cells, and polyclonal B cells. CD34+ blasts comprise fewer than 1% of cells studied. Blasts, monocytes,and granulocytes show no definitive immunophenotypic aberrancies. Plasma cell associated markers show rare plasma cells with no evidence oflight chain restriction. Procedure Electronically Signed By:FANG GIFFORD M.D.12/06/2020 This report may include one or more immunohistochemical stain/fluorochromeconjugated monoclonal antibody results that use analyte specific reagents.All positive and negative controls have been reviewed by the attendingpathologist and are satisfactory. The tests were developed and theirperformance characteristics determined by [facility] Pathology department.They have not been cleared or approved by the [place] Food and DrugAdministration. The FDA has determined that such clearance or approval isnot necessary. Name Value Range Interpretation Code Description Data Anastasiia rce(s) Supporting Document(s) ID Date Data Source [id number] 12/15/2020 11:14:00 PM [facility] Hematopathology ReportName: KARLA TAPIAMRN: [id number] Number: [id number] Date: 12/02/2020 00:00Received Date: 12/09/2020 14:51Physician(s): ARMAAN RG MD VYAS, SHIKHAR G,[facility] [place] [facility]) ReceivedA: Slides received for consultation, SHIVA; received 7 slides and 2 blocks(A2 & B2) labeled [id number] from [facility], collected12/02/20, in consultation with Dr. Johnstonlinical HistoryConcern for plasma cell dyscrasia.TEST REQUESTED/PERFORMED: Bone Marrow Consultation DiagnosisNormocellular bone marrow with 3.3% plasma cells. No evidence of plasm acell neoplasm, dysplasia, lymphoma or leukemia.Cece Loja M.D.;Resident PathologistElectronically Signed By Elvia Hodges M.D. Attending Pathologist 12/15/2020 23:14:13The attending pathologist named above attests that he/she has personallyreviewed the relevant preparation(s) for the specimen(s) and rendered thefinal diagnosis. ProceduresHematopathology Consultation Date Ordered:12/09/2020 Status: Signed Out12/14/2020 InterpretationPERIPHERAL BLOOD: CBC performed at [facility], [address] [place] [address] on 12/02/20.WBC *1.8 K/uLRBC *2.54 M/uLHgb *6.9 g/dLHct *20.5 %MCV 80.7 fLMCH 27.2 pgMCHC 33.7 g/dLRDW *16.8 %Platelets *84 K/uL The erythrocytes appear decreased in number and are overall normochromicand normocytic. Anisocytosis is moderate. Poikilocytosis is mild. Polychromasia is not increased. Nucleated red cells are not seen. Rouleau formation is not increased. The platelets appear decreased in number.The leukocytes appear decreased in number. Differential Count (100 cells):41 % Neutrophils 3 % Kvosfregipb17 % Lymph bwqlem87 % Monocytes --------100 % Qualitative leukocytic changes: Marked stain precipitate is noted. BONE MARROW ASPIRATE: Cellularity appears normal based on rare particle on aspirate. Differential Count (300 cells):23.7 % Erythroid Precursors 1.0 % Blasts 3.7 % Promyelocytes 5.0 % N. Ndubrglepy47.3 % N. 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 No ring forms are seen. Iron stain performed on the clot section shows present iron stores. MARROW BIOPSY: Biopsy sections show mostly fibrocartilage and bone, and small fragment ofnormocellular marrow with normal M/E ratio. Megakaryocytes are normal. Nosheets or large clusters of plasma cells are seen. Bony trabeculae areunremarkable. Touch imprint slides show cellular fallout with trilineage hematopoieticcells and no increase in plasma cells. CLOT ASPIRATE:Sections of bone marrow aspirate show normocellular particles with nosheets or large clusters of plasma cells.SPECIAL STAINS: CD138 shows mostly scattered and few small clusters ofplasma cells (~5%). [place] and lambda ROSEANNE show no definite evidence ofclonality.Stains received for interpretation from the outside institution: Iron Stains performed at [facility]: CD138, kappa ROSEANNE,lambda ROSEANNE MORPHOLOGY SUMMARY: Normocellular marrow with 1.0% blasts, 3.3% plasmacells, normal M/E ratio (2.6/1), normal proportion of sideroblasts, andnormal megakaryocytes. No sheets or large clusters of plasma cells areseen. Peripheral Blood: Pancytopenia with normocytic anemia, neutropenia (0.76K/uL), and lymphopenia (0.83 K/uL).Flow cytometry ([id number]) shows no evidence of leukemia, lymphoma, plasmacell neoplasm, increased blasts or a dysplastic phenotype.Procedure Electronically Signed By:Elvia Hodges M.D.12/15/2020 This report may include one or more immunohistochemical stain/fluorochromeconjugated monoclonal antibody results that use analyte specific reagents.All positive and negative controls have been reviewed by the attendingpathologist and are satisfactory. The tests were developed and theirperformance characteristics determined by [facility] Pathology department.They have not been cleared or approved by the US Food and DrugAdministration. The FDA has determined that such clearance or approval isnot necessary. Name Value Range Interpretation Code Description Data Anastasiia rce(s) Supporting Document(s) ID Date Data Source [id number] 12/10/2020 04:07:00 PM [facility] Cytogenetics ReportName: KARLA TAPIA Number: [id number] Date: 12/02/2020 00:00Received Date: 12/03/2020 13:10Physician(s): ARMAAN RG MD VYAS, SHIKHAR G,MDSpecimen(s) ReceivedA: Bone Marrow - Karyotype analysis and FISHClinical [id number] patient with anemia, acute renal failure and pancytopenia.TEST REQUESTED/PERFORMED: Chromosome analysis and fluorescence in situhybridization (FISH) InterpretationChromosome analysis revealed a normal male chromosome complement in allcells analyzed. As no chromosomal abnormalities were detected, the FISHstudy was canceled by Dr. Aj Wright. Please correlate with the concurrentHematopathology report, [id number]. Electronically Signed By William Kevin, PhD Attending Pathologist 12/10/2020 16:07:24Results and ISCN (2016) NomenclatureChromosome Nxcqwgrb77,XY[20] DescriptionA normal male chromosome complement was observed in twenty metaphasesanalyzed. Within the resolution limits of this analysis, no consistentstructural and/or numerical chromosomal aberrations were detected. Test DataSpecimen Processed: Bone Marrow Chromosome Analysis:Metaphases Counted Metaphases Analyzed Metaphases Karyotyped BandingTechnique Band Resolution Culture 20 20 2 GTL 400 24 HR unstimulatedDisclaimer: Conventional chromosome analysis may not detect submicroscopicchromosome aberrations or low level mosaicism. Name Value Range Interpretation Code Description Data Anastasiia rce(s) Supporting Document(s) ID Date Data Source [id number] 11/30/2020 09:45:00 PM EDT [facility] Name Value Range Interpretation Code Description Data Anastasiia rce(s) Supporting Document(s) SARS coronavirus 2 RNA [Presence] in Res piratory specimen by ANNA with probe detection NEGATIVE [facility] This lab was ordered by [facility] a nd reported by [facility]. ID Date Data Source ANTI-NEUTROPHIL CYTOPLASMIC AB 10/27/2020 12:00:00 AM EDT eC W1 ([facility]) Name Value Range Interpretation Code Description Data Anastasiia rce(s) Supporting Document(s) <1:20 Neg:<1:20 CYTOPLASMIC NEUTROP AB AN CA-C eCW1 ([facility]) <1:20 Neg:<1:20 PERINUCLEAR AB ANCA-P eCW1 ([facility]) <1:20 Neg:<1:20 ANCA-ATYPICAL eCW1 ([facility]) ID Date Data Source EBV AB COMPREHENSIVE 10/27/2020 12:00:00 AM EDT eCW1 ([facility]) Name Value Range Interpretation Code Description Data Anastasiia rce(s) Supporting Document(s) <18.0 0.0-17.9 EBV AB TO NUCLEAR ANTIGEN eCW1 ([facility]) <18.0 0.0-17.9 EBV VIRAL CAPSID AG IgG e CW1 ([facility]) 129.0 0.0-35.9 EBV VIRAL CAPSID AG IgM e CW1 ([facility]) ID Date Data Source COMPLEMENT TOTAL (CH50) 10/27/2020 12:00:00 AM EDT eCW1 ([facility]) Name Value Range Interpretation Code Description Data Anastasiia rce(s) Supporting Document(s) 40 >41 COMPLEMENT TOTAL (CH50) eCW1 ( [facility]) ID Date Data Source BETA-2 GLYCOPROTEIN 1 KUSH MY 10/27/2020 12:00:00 AM EDT eCW 1 ([facility]) Name Value Range Interpretation Code Description Data Anastasiia rce(s) Supporting Document(s) 87 0-20 BETA-2 GLYCOPROTEIN I KUSH IGG eCW1 ([facility]) 26 0-25 BETA-2 GLYCOPROTEIN I KUSH IGA eCW1 ([facility]) 18 0-32 BETA-2 GLYCOPROTEIN I KUSH IGM eCW1 ([facility]) ID Date Data Source RHEUMATOID FACTOR QUANT 10/27/2020 12:00:00 AM EDT eCW1 ([facility]) Name Value Range Interpretation Code Description Data Anastasiia rce(s) Supporting Document(s) 24.6 <15.0 RHEUMATOID FACTOR QUANT eCW1 ( [facility]) ID Date Data Source PLATELET ESTIMATE 10/27/2020 12:00:00 AM EDT eCW1 ([facility]) Name Value Range Interpretation Code Description Data Anastasiia rce(s) Supporting Document(s) NORMAL NORMAL PLATELET ESTIMATE eCW1 ([facility]) ID Date Data Source DIFFERENTIAL 10/27/2020 12:00:00 AM EDT eCW1 ([facility]) Name Value Range Interpretation Code Description Data Anastasiia rce(s) Supporting Document(s) 54 28-66 NEUTROPHILS eCW1 ([facility]) 4 0-5 MONOCYTES eCW1 ([facility]) 4 < 11 BANDS eCW1 ([facility]) 30 16-44 LYMPHOCYTES eCW1 ([facility]) 1 0-3 EOSINOPHILS eCW1 ([facility]) 6 0-5 ATYPICAL LYMPH eCW1 ([facility]) 1 0-1 BASOPHILS eCW1 ([facility]) ID Date Data Source IMMUNOGLOBULIN G 10/27/2020 12:00:00 AM EDT eCW1 ([facility]) Name Value Range Interpretation Code Description Data Anastasiia rce(s) Supporting Document(s) [phone] IMMUNOGLOBULIN G eCW1 ([facility]) ID Date Data Source FERRITIN 10/27/2020 12:00:00 AM EDT eCW1 ([facility]) Name Value Range Interpretation Code Description Data Anastasiia rce(s) Supporting Document(s) 733 03-388 FERRITIN eCW1 ([facility]) ID Date Data Source ERYTHROCYTE SEDIMENTATION RATE 10/27/2020 12:00:00 AM EDT eC W1 ([facility]) Name Value Range Interpretation Code Description Data Anastasiia rce(s) Supporting Document(s) 48 0-20 ERYTHROCYTE SEDIMENTATION RATE eCW1 ([facility]) ID Date Data Source C REACTIVE PROTEIN QUANTITATIV (At [facility]) 10/27/2020 12:00 :00 AM EDT eCW1 ([facility]) Name Value Range Interpretation Code Description Data Anastasiia rce(s) Supporting Document(s) 2.16 0.00-0.30 C REACTIVE PROTEIN QUANTI TATIV eCW1 ([facility]) ID Date Data Source CBC with Differential 10/27/2020 12:00:00 AM EDT eCW1 ([facility]) Name Value Range Interpretation Code Description Data Anastasiia rce(s) Supporting Document(s) 3.2 4.0-10.0 WHITE BLOOD COUNT eCW1 ([facility]) 3.51 4.30-6.10 RED BLOOD COUNT eCW1 ([facility]) 27.6 27.0-33.0 MEAN CORPUSCULAR HEMOGLOB IN eCW1 ([facility]) 29.8 42.0-52.0 HEMATOCRIT eCW1 ([facility]) 84.9 80.0-96.0 MEAN CORPUSCULAR VOLUME e CW1 ([facility]) 9.7 13.5-17.5 HEMOGLOBIN eCW1 ([facility]) 16.2 11.5-14.5 RED CELL DISTRIBUTION WID TH eCW1 ([facility]) 162 150-450 PLATELET COUNT, AUTOMATED eCW1 ([facility]) 32.6 32.0-36.5 MEAN CORPUSCULAR HGB CONC eCW1 ([facility]) ID Date Data Source COMPLEMENT C4 10/27/2020 12:00:00 AM EDT eCW1 ([facility]) Name Value Range Interpretation Code Description Data Anastasiia rce(s) Supporting Document(s) 20 10-40 COMPLEMENT C4 eCW1 ([facility]) ID Date Data Source COMPLEMENT C3 10/27/2020 12:00:00 AM EDT eCW1 ([facility]) Name Value Range Interpretation Code Description Data Anastasiia rce(s) Supporting Document(s) 98 90-180 COMPLEMENT C3 eCW1 ([facility]) ID Date Data Source [id number] 08/17/2020 10:33:22 AM EDT [facility] Name Value Range Interpretation Code Description Data Anastasiia rce(s) Supporting Document(s) Progress Note [facility] AZMQNg4pGtMHUaJo12/FDQbqPTHei6CfRXbeHJu3UWemEKJnQ7EjHKN8cF2pLPT8ZJmQArNpAvOoYhX5 lbm [file] == ID Date Data Source [id number] 08/04/2020 09:15:00 AM EDT [facility] Name Value Range Interpretation Code Description Data Anastasiia rce(s) Supporting Document(s) EGD-Colonoscopy [facility] QKGJVm8sSqYINkMiFSKmOgiMSUubQLkbCFVnT9P4RKwjHz9CXCmpxqHyLQRmNk4+GGLuHJ4etj7rKTHy gMy [file] L8POjRFsfsTu6JOsOhSitNsSdmP36/yBusuGuzktjxIaROx46t7otpprVZaR2RyyHLNyIX1o4V+u/Martín [file] Isy4zmGA30bxwmngWw/d9ugS5qnXJl+ep1qb7PBa5bACbCSylvpvoZNYzbcZUgEzxO5kXakOlxZ4K/SIGN WRITER LETTERER OR PAINTER [file] [facility]+epoauIIxHhltPDlgXESJA1lLDwnmdLRfU72NkQYBxkCkGwdWy92bvFQ8CYDboJNTPdNaE4 [file] 9ma64J2xYxaPQhb4w3/48DHR5XMWU/xxbgQvsaD+customer assistance representative/zaaEmFrD4zuKsIzsgC8Pbqg5zrPgpdl/FkRed uVUAsyiwu6XzAi0hxsquYGOGjvO8BvkF8DN4gsVYzC 2jW0XI54a8lyPg5O7RGCTD7ni1qHwoEj+2tCWK/IPkDp2vGY/E6maQEhLNtaV+pXNzT+a5feuv2o1C3Q UZIvw1fu9s+P/fVAuE5dovPeS/I219Si3fqF43sZaX+FRhASHoEPRHyH/lUJ+l2Yf1Btm9LoDNPjr2vJ P19YhhbEcWJT+SqeWKX/pdC4FtccMCbL2kUHhdp6/e eDvdgXdEkhpTeA/1SFK+3r1aANDDiNrSoWgiH8SfllvBzu/xvuj6KFobQc4dGGOMc+x1+SQfJSBFE0/i vi/5QFmBDz6DyVNPRsrt2MnNGOkx4wqHnv59j+b0j7EKBt9falOVnLRBWZ5UY7B5w7vHb4aaD8WLPEHe f8y2n1BsbbwTcVI3RUj+6t4Fb4chjp1pVmO+8fP9Za +1trfTbZu+ZU/EdOvH5FntR/Dw376r4GmC9sWPep0B3q3J+lAfu5Nwurhy4dOADz/SExizudeW9JtcgL 8Ju5TzA0M0Xzu8ETeE84fJzr/3Bt61u+0gNLMu4wV/kIoXsf23edwkZ9EqhiGr+xcZYfgLf/iEPbJ8cB lrimLb0A1izLGZBvB90Mvsr3qcwdiK42Sg78p+u/7K R4BPIKO9fC2Ll5i9ylw9eS4uQfX8zvE1Gqa5/txa8V83rlKxLb/NjVMe7yZXr9fFS/4jQUl02SVTxk9n bHGYBXkZuWsal8PascRZhbDS/C2uPXTde3GWp9l8yKixjcz470aI9g/3qYIY/Fbfn3g4wTSiPpdDI/YZ lPELRoSf/XC0/65RDVB/Rcuq5+DpKiSNJGpatq99yP KdJT/f+P02d4DFT/U6gIb89Yh5KDdOGrC+tj3c/6Tqr/LCyRjH+tc0DcjddUwHfJrO2lVm+qRQoL2Esc nNqhJ/Desire/kESElOFLD+GJtUXLmp4sGQoLlPZhpouYaYGSEnfL3DbkleTumwAr/fSIm3/Cn2zb3j2TNF A7pQZl99L2cWHXZNu+XD6IU0BAoHA+T/xOHoH9dWNp X/Ybz6H+On92V/WJp2j04bfybP/CBnkQ4Z/pn+yv6R/gjuf89+Bn+s/+nJ+W9UR41b03UMMSGgQH9gFp 7p+9T1HJS7W/T/4qHAq6agRdbmtNQAj44SxcyGNz0R4p4EsKG+Y/r4d925ZFufqN2NTV+HVwbGZJn/zD ginger/31JJm2yt9q/vU+1lK72/NtMSMoR9Win/ptSHsGu [file] [facility]+VHf2BclyPj5vB3cWSKFPtQGMW0stHI7JnDCgkJlEUjEFWZPCk23Xzr09L8AGsiPR+UaVIootj [file] vp clinical research+Yve5Udyv7h25riQ2OeSXKrP5ShLcGCaUvsrT8g0 [file] +5GWhZIUjZsU8Hi9vT332hO/rJUgWsTPNAlG8MV7JpVaD/76JMWYQ9Yv6MYGZ8zY+0dt66PLeKG5 GL2AdMXJMCLouhnhIGCws8UTDc88UTRkC8hNYRvySp qGeJiaZteHtVsq7o7RcWtKvofTTJRXYevnMPXqICDMcHKyIMc3U2edJslSy/rbvrIvN8FKcnlz5KFjwY P+62Zn/F+qOYglWLbYLZCtsItUdVw4dPqKXGK7Hi6EWIcBRrl2V7VSvXmdzP44jdANzgwtuDy6fPnon7 TgEZAkdHMfMPYIyM/0LSDPc7HdtFQai56TaqKcfWpd QTkMIZ+fSSK0r1UYet7GjW4/1E8bCtQZssT7d5On9S/V0wf42icUmOsPfF1VPzlqcq9K7HkrD1qajBod cqF6w1tyB5qAGlelS4rFzTtyPfyGiCQIgbWQyuIUpVEwKSXE/RCbgRRBx5Sb2zEiWw9KPooMPltVaiNX +gwm78N2dPosYreuSAreRHFnENsD6dVK2P2W1cfuNw Eu7PYWlXxxUwtpANO760UN4aBudgA0MZ45FqCPIirnt4xumBZyKoarYCe+QJ/OlcrHu8eXdXPC1Z1LyV Flda/jYFGGZM4Ly6of9dXtgMXF+FLJ6isDUwzWngy0pDGjmdP5bsZmmStByMKH3JAYUbawdquqLEW8nY 20caz0jk3eCXwOdo7qp+IAZWP9HsSRqkkkZDjAJRJ8 ibU8NgRLzj4qVSffK9PmUWsTLHbSvFFXBDhj8kn9dYQcHX1NsPQysKBKRVHqx+/X29/jb294zbhA2heb YE/ZLtUbIKfdbBp8rVmwOHycAUppAs/4jTIY41p4kCRRQx+NlAg10vmW92gU+s6e54IYUoAjgZOr+[place] [file] YafgqK2rB7DmmtuVTPDZlDz/8guvv8xcMwficvdDn+ nzr5+T62FKKV8JrCNemSTCaLvr2r0l004ibMyo/9zl1g+o6qQy/w2QDVy0SqJiJeAudriH1xZ48c6bEq m40+we1RvyM3Mwir0Ch7eW63Il2UGYOSmiC/1j1foSkyIJss/ztv3GOsJVMePQ3JPp9025FrZkGO6Fp+ o9Sg5FRGFBskzHO8gkr9TNyVvtWuf9K8kLKm7LBslo ZparTyUVcZ1VZhSe7gISACbqlQlTtgh7pkpl5QK7mrqQB1Qcl53FPo0ZeEPBGH/o/tHJwu9Lq9GgRlp6 Aws8uuymaVF1pEhcYH4YA1P/QJNlY8TLyobn47sZeDf8yarodt/ZPyC8hyREkLJ3tIJfu+9VFJG239S6 qCoQq61GdFFerlR/4dQ0cg76gHn8PsHkb4O8X/r7Cl PJvYO1F+asr5lrSfpP7YmqB+g9PWOg8B5sta3838NpV4pQbAbqs8H6vtPBafGj0LjWCDoXtKgJyYq+b3 FXI3DhjkPYkPa+n28KlyiIwuXFkUQ5z1DaFKzxezO6PPzRjJF++oyKolw60WPoJZF+/hHkIfzrHBUA05 RgsMLiVW2nV4boU+8qriR7gn3P4yizCHfSiX9JEplY iKPEwTp0WHnNexTSNByCmQCggn2Ql/V4JG7PCVkeZmJeYlceolIShz3G9bzikjIWyODsn/0A5K9J7Fkj zZmJ5qx6ePY5R+bf8gNNQ2xB8ePnSrSe2fe69pUFhZdNeLQBiJy6A3wPk67/nYwonWd3c1Kfzg42RYdR /E2qFpkUet+KNkzSvr1vkj0jrCm4gmmCmQUs4vk/Landscape Architect [file] Krfo3Ep8n+ipA4rfxnQrfcGPjoQbAnIXCgE9Ke66z/Víctor/49Hvosi8tfZ6miUIiietWZrlz6M+9ityCJ [file] 77y2MyClT2Uedp+Xm/BIVWK9n+g0+lift truck mechanic+Kh9WdCcerg [file] WIxlEC1ONVNB2rLLKTmR29BjgH0K/fraud representative/aqApGIyWXaQTpzszGVccFh5TX/RZZXN8pFmOn3i4jpj/tI6 [file] gG1eEaomu8FS7+milling planer operator/3r+KxCcQ2nYsy2mXRmJu2vQMT [file] milling planer operator/PHFU4aIeYM0i6khoLWdPjzt9Wf3ww9vwVbbqFE6 [file] AL+1v5T0EDCc3sLcCWhIs6+ePWUhpvsyq9XO2yb4Q+Rkb8tOX74fV725UKpm0+kS9SuzHXWc3mrlbuC nITxptWBPYQK4E+BYbPcz2pHMq2KmqjxKf3AQJysw3TYq/fwfaETeAIpHyIsOEqMNM8i6PHMg7QKzy1F vc/plsshZtLS0Konr2YgY6p0/R9IzYQHLPo9ynALSu 1ngLfDTJZIaTUiIkxzj8HzEmcrI6KeWAZhmCsB12nj5PNezN6yKQ/uBGWAs5MpNA3CfpuEGSPOzSRuyE 64yPHJEQc8Y1tjbMhatDmnHGn4/q03FBN9bG3Z2l61XjjiE880+gvGESyW2nJPAAl30G/IhPKsIbnK5n LgZVluM8e0J9w7NflyTLgbQ8doMI2xj+8sZEmD0Wo7 Landscape Architect/AviqecLjHz17LOvr5Mzm9CB9LCscHWT/GVtylPoedWEYb4F3lbXBF60wH0MX40ILjzeK/U/XDPWzi [file] +UkAX4euRMi1WeMy7/nCirfIWjOQ8gNvtENWVFy0xbrz9YyPJ2cu1T72m/milling planer operator+9LqzbtRwXigB+WdQM28 [file] dM+EwNWD/QUDixk4hBT9mfqaDKb76XTuGvlKMtK86wr52hwftgzvADl9/branch service specialist+OVMxuViMiPRA4je3XgD [file] milling planer operator/dstzvAkgNu6R+24anXSizEPjPNg8XTP/a8Q+kgsEW8zPOLY0fbzJf7zwE45LXYgdcja7yTizzYxgN 33IQfraPF7tuBO4YT5RqVBIcQ/g1TjDBfAh+mKZikJ9bNHf7epARJSXPAARXPFEtuQWSM7rHKEhKuWtu YCxN335DU+GnR3nSsSqpiyfUQAjHDJZkpI/juPLAGp 5c/cuGSPHJqwd+nhZErRLnbk5HIznUu89zI8q+SgLdkiZIWoko5hx/3X6+2d58cdVSm8PsdWVYW7zy9H 7b21sQgeqbr7TW41msfw+xKKogdzfN6QYKHO73Jo2F9ZEkdct6ET6IwNK8U9crBCqpy9mHUJrA111tVQ /SH17d+76Dgea6TW+7YZa15KBs633yJEZk8OIMaloL zQv+S+p9eTg/pbt/f1bV4cDo4B8KChBOQzk0Tj1+eklx2zQ8aeCz7So50EvdCyeRTH9JKl6Fdk4BVv7v 93hp1ODdXeqWtKE4WuAExaTVVllixcJzC2vh2z3d2FEL0bvp2KEHqa0k/2mJee/OzIKPGF5z+T7Lc9CT jXhmAe/ST736R/vJuy1Ni6wHiXy2sEccYY/vksAhjn MtB/l1BJOJgokLNwZHN6pl5q7B+kBku071d5g/hjij/os7l69PrGopfL5OBrND2I6iGcsJHM0vWFcYAa pAswN6yG1CKQuE53/Z62cEOpjwisLRFCCj+kE3FHVDKwoXmjKdrwO8l6QjtPMgw4LRSIIzeKigH88/kI sEzIo7mpb3EM6Wqyt/cpa3EGkKT4BOy1suUNTUMtod vBdD4mGYzPjLpLuN5LrzBiHFC8oVkRSpzLS/OHPp/k0MhX2+JtxACsEbNmUu5YuVwH/GuSb9nTTCKSW2 vRcka7avEBMLQCx4L0Uqkp+j65Ro9OEMom0yQWPM0zZG2lcDSov4cWO5feRT4nmqHVo/vLGbKedrAe6U Uk2kPbtohJqILFxYkrtxJlrryqlhuaL1a+NsVPGaHg [file] VFT0Y= ID Date Data Source [id number] 07/29/2020 01:21:19 PM EDT [facility] Name Value Range Interpretation Code Description Data Anastasiia rce(s) Supporting Document(s) Progress Note [facility] QLZPRe5pGxYARnGq18/EPUyzPSIdm8HuAIglNRm3WVklUWOsO7SqVJA1iN3cRTM3XNzIOfQkTsXzGQM1 lbm [file] wmhQPvmNbvHPHZTdMoGWz0MObjBVYJVo1R ID Date Data Source [id number] 07/27/2020 01:40:00 PM EDT [facility] ([facility]) Name Value Range Interpretation Code Description Data Anastasiia rce(s) Supporting Document(s) Fibrosis Score 0.66 0.00-0.21 [facility] ([facility]) Fibrosis Stage Laboratory test result [facility] ([facility]) F3-Bridging fibrosis with many septa Laboratory test finding (navigational concept) Laboratory test result [facility] ([facility]) S0 - S1 No Steatosis - Minimal Steatosi s Laboratory test finding (navigational concept) 0.36 0.00-0.30 [facility] ([facility]) Laboratory test finding (navigational concept) 0.25 [facility] ([facility]) Laboratory test finding (navigational concept) Laboratory test result [facility] ([facility]) N0 - Not [facility] Laboratory test finding (navigational concept) 67 in [facility] ([facility]) Laboratory test finding (navigational concept) 244 mg/dL 110-276 [facility] ([facility]) Laboratory test finding (navigational concept) 202 LBS [facility] ([facility]) Haptoglobin 15 mg/dL 29-370 [facility] ([facility]) Bilirubin, Total 0.4 mg/dL 0.0-1.2 [facility] ([facility]) Apolipoprotein A-1 92 mg/dL 101-178 [facility] ([facility]) Laboratory test finding (navigational concept) 26 IU/L 0-55 [facility] ([facility]) GGT 12 IU/L 0-65 [facility] Laboratory test finding (navigational concept) 35 IU/L 0-40 [facility] ([facility]) Glucose, Serum 83 mg/dL 65-99 [facility] ([facility]iol [facility]) Laboratory test finding (navigational concept) 119 mg/dL 100-199 [facility] ([facility]) Triglycerides 135 mg/dL 0-149 [facility] ([facility]iolo gy [facility]) Laboratory test finding (navigational concept) [facility]) <content>.</content>
<content>Quanti tative results of 10 biochemicals in combination with</content>
<content>age, gender, height, and weight, are analyzed using a</content>
<content>computational algorithm to provide a quantitative surrogate</content>
<content>marker (0.0-1.0) of liver fibrosis (Metavir F0-F4), hepatic</content>
<content>steatosis (0.0-1.0, S0-S3), and Non-Alcoholic Steato-</content>
<content>Hepatitis (WALSH) (0.0-0.75, N0- N2). The absence of steatosis</content>
<content>(S<0.38) precludes the diagnosis of WALSH.</content>
<content>.</content>
<content>Fibrosis marker: In a study of 171 Non-Alcoholic Fatty</content>
<content>Liver Disease (NAFLD) patients where 23% had significant</content>
<content>NAFLD fibrosis (Metavir F2-F4) and 11% had cirrhosis by</content>
<content>liver biopsy, a fibrosis result of >0.3 yielded a</content>
<content>sensitivity of 83% and a specificity of 78% for the</content>
<content>detection of significant fibrosis(1).</content>
<content>.</content>
<content>Steatosis Marker: In a population of 744 patients (583 HCV,</content>
<content>18 HBV, 69 NAFLD, and 74 alcoholic disease patients), where</content>
<content>36% had significant steatosis (>5%) on a liver biopsy, a</content>
<content>steatosis score >0.5 had a sensitivity of 71% and a</content>
<content>specificity of 72% for identification of significant</content>
<content>steatosis(2).</content>
<content>.</rocío nt>
<content>WALSH marker: In a population of 257 NAFLD patients, where</content>
<content>62% had at least some WALSH by liver biopsy, a prediction of</content>
<content>WALSH had a sensitivity of 88% for identifying WALSH and a</content>
<content>specificity of 50%(3).</content>
<content>.</content>
<content></content> Fibrosis Scoring Laboratory test result [facility] ([facility]) <content>.</content>
<content><0.21 = Stage F0 - No fibrosis</content>
<content>0.21 - 0.27 = Stage F0 - F1</content>
<content>0.27 - 0.31 = Stage F1 - Portal fibrosis</content>
<content>0.31 - 0.48 = Stage F1 - F2</content>
<content>0.48 - 0.58 = Stage F2 - Bridging fibrosis with few septa</content>
<content>0.58 - 0.72 = Stage F3 - Bridging fibrosis with many septa</content>
<content>0.72 - 0.74 = Stage F3 - F4</content>
<content>>0.74 = Stage F4 - Cirrhosis</content>
<content></content> Laboratory test finding (navigational concept) Laboratory test result [facility] ([facility]) <content>.</content>
<content>< 0.30 = S0 - No Steatosis</content>
<content>0.30 to 0.38 = S0 - S1</content>
<content>0.38 to 0.48 = S1 - Minimal Steatosis</content>
<content>0.48 to 0.57 = S1 - S2</content>
<content>0.57 to 0.67 = S2 - Moderate Steatosis</content>
<content>0.67 to 0.69 = S2 - S3</content>
<content>> 0.69 = S3 - Marked or Severe Steatosis</content>
<content></content> Laboratory test finding (navigational concept) Laboratory test result [facility] ([facility]) . 0.25 = N0 - Not WALSH 0.50 = N1 - Borderline or probable WALSH 0.75 = N2 - WALSH Comment Laboratory test result [facility] ([facility]) . This test was developed and its performance characteristics determined by [employer]. It has not been cleared or approved by the Food and Drug Administration. The FDA has determined that such clearance or approval is not necessary. . For questions regarding this report please contact customer service at . . References: . 1. Vivian Garrett. et al. Diagnostic Value of Biochemical Markers (FibroTest) for the prediction of Liver Fibrosis in patients with Non-Alcoholic Fatty Liver Disease. [facility] Gastroenterology 2006; 6:6. 2. Meaghan Choe. et al. The Diagnostic Anju ue of Biomarkers (Steato Test) for the Prediction of Live r Steatosis. Comparative Hepatol. 2005; 4:10. 3. Meaghan Choe, Dominique Park, et a l. Diagnostic value of biochemical markers (WALSH TEST) for the prediction of non alcohol steato hepatitis in patients with non- alcoholic fatty liver disease. [facility]MC G[facility]ology 2006; 6:34 doi:10.1186/8831-604N-1-34. Limitations Laboratory test result KARENEN T ([facility]) . WALSH FibroSure is recommended for patients with suspected non-alcoholic fatty liver disease. It is not recommended for patients with other liver diseases. It is also not recommended in patients with Gilbert Disease, acute hemolysis, acute viral hepatitis, drug induced hepatitis, genetic liver disease, autoimmune hepatitis and/or extra- hepatic cholestasis. Any of these clinical situations may lead to inaccurate quantitative predictions of fibrosis. ID Date Data Source [id number] 07/27/2020 01:40:00 PM EDT [facility] ([facility]) Name Value Range Interpretation Code Description Data Anastasiia rce(s) Supporting Document(s) Tissue transglutaminase IgA Ab [Units/volume] in Serum Labor atory test result 0-3 [facility] ([facility]) Negative 0 - 3 Weak Positive 4 - 10 Positive >10 . Tissue Transglutaminase (tTG) has been identified as the endomysial antigen. Studies have demonstr- ated that endomysial IgA antibodies have over 99% specificity for gluten sensitive enteropathy. Liver kidney microsomal 1 Ab [Presence] in Serum Laboratory test result 0.0-20.0 [facility] ([facility]) Negative 0.0 - 20.0 Equivocal 20.1 - 24.9 Positive >24.9 . LKM type 1 antibodies are detected in patients with autoimmune hepatitis type 2 and in up to 8% of patients with chronic HCV infection. Ceruloplasmin [Mass/volume] in Serum or Plasma 32.6 mg/dL 16.0-31.0 [facility] ([facility] Hepatitis A virus IgG Ab [Units/volume] in Serum Laboratory test resu lt [facility] ([facility] Performed at: [facility] [address] [id number] Striker Off: Tressa Palmer MD, Phone: [phone] Performed at: [facility] [address] [id number] Striker Off: Umu Santacruz MD, Phone: [phone] Mitochondria Ab [Units/volume] in Serum Laboratory test result 0.0-20 .0 [facility] ([facility]) Negative 0.0 - 20.0 Equivocal 20.1 - 24.9 Positive >24.9 . Mitochondrial (M2) Antibodies are found in 90-96% of patients with primary biliary cirrhosis. ID Date Data Source [id number] 07/27/2020 01:40:00 PM EDT [facility] ([facility]) Name Value Range Interpretation Code Description Data Anastasiia rce(s) Supporting Document(s) Antinuclear Antibodies Direct Laboratory test result [facility] ([facility]) ID Date Data Source [id number] 07/27/2020 01:40:00 PM EDT [facility] ([facility]) Name Value Range Interpretation Code Description Data Anastasiia rce(s) Supporting Document(s) Hepatitis B virus surface Ab [Presence] in Serum by Im munoassay Laboratory test result [facility] ([facility]) Hepatitis B virus surface Ag [Presence] in Serum or Pl asma by Immunoassay Laboratory test result [facility] ([facility]) Hepatitis A virus IgM Ab [Units/volume] in Serum by Im munoassay Laboratory test result [facility] ([facility]) Ferritin [Mass/volume] in Serum or Plasma 820 ng/mL 26-388 [facility] ([facility]) Thyrotropin [Units/volume] in Serum or Plasma 1.960 uIU/ML 0.358-3.74 0 [facility] ([facility]) Jwkiv-7-vkvftletjwz.tumor marker [Mass/volume] in Serum or Plasma 2 .1 ng/mL [facility] ([facility]) THE AFP ASSAY IS PERFORMED ON THE [employer] BY CHEMILUMINESCENCE AND SHOULD NOT BE COMPARED INTERCHANGEABLY WITH OTHER METHODS. IT SHOULD NOT BE USED ALONE A SCREENING TEST OR DIAGNOSIS FOR THE PRESENCE OR ABSENCE OF MALIGNANT DISEASE. THESE RESULTS ARE NOT INTERPRETABLE IN FEMALES. PREDICTIONS OF DISEASE RECURRENCE SHOULD NOT BE BASED SOLELY ON VALUES OBTAINED FROM SERIAL PATIENT SERUM VALUES. Alpha 1 antitrypsin [Mass/volume] in Serum or Plasma 132 mg/dL 101-1 87 [facility] ([facility]) Actin IgG Ab [Units/volume] in Serum or Plasma 18 units 0-19 [facility] ([facility]) Negative 0 - 19 Weak positive 20 - 30 Moderate to strong positive >30 . Actin Antibodies are found in 52-85% of patients with autoimmune hepatitis or chronic active hepatitis and in 22% of patients with primary biliary cirrhosis. ID Date Data Source [id number] 07/27/2020 01:40:00 PM EDT [facility] ([facility]) Name Value Range Interpretation Code Description Data Anastasiia rce(s) Supporting Document(s) Albumin % 49.7 % 55.8-66.1 [facility] ([facility] Dhhwe-5-Dfwxtmsj % 4.1 % 2.9-4.9 [facility] (Car [facility]) Uekpo-8-Sberyifzl % 7.1 % 7.1-11.8 [facility] (Ca [facility]diology [facility]) Jnpp-0-Prjdvcarb % 4.2 % 4.7-7.2 [facility] ([facility]) Vlgs-5-Wxzowqdlq % 2.8 % 3.2-6.5 [facility] ([facility]) Gamma Globulin % 32.1 % 11.1-18.8 [facility] ([facility]) Albumin 4.17 GM/DL 3.29-5.55 [facility] ([facility]) Mbfvy-7-Pbroyddyk 0.34 GM/DL 0.17-0.41 [facility] ([facility]) Xmxvy-2-Tgwkoxqtt 0.60 GM/DL 0.42-0.99 [facility] ([facility]) Lrlu-2-Zdiplezco 0.35 GM/DL 0.28-0.60 [facility] ([facility]) Gwzn-1-Awxrbharw 0.24 GM/DL 0.19-0.55 [facility] ([facility]) Gamma Globulins 2.70 GM/DL 0.65-1.58 [facility] ([facility]) Total Protein 8.4 GM/DL 6.4-8.2 [facility] ([facility]iolo gy [facility]) Spep Interpretation Laboratory test result [facility] ([facility]) 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 Laboratory test finding (navigational concept) Laboratory test result [facility] ([facility]) REV'D BY Marcell ESPINO ID Date Data Source [id number] 07/27/2020 01:40:00 PM EDT [facility] ([facility]) Name Value Range Interpretation Code Description Data Anastasiia rce(s) Supporting Document(s) Total Iron Binding Capacity 227 ug/dL 250-450 [facility] ([facility]) Iron (Fe) 65 ug/dL 65-175 [facility] Percent Saturation 28.6 % 19.7-50.0 [facility] ID Date Data Source [id number] 07/27/2020 01:40:00 PM EDT [facility] ([facility]) Name Value Range Interpretation Code Description Data Anastasiia rce(s) Supporting Document(s) Ast/Sgot 33 U/L 7-37 [facility] ([facility]) Alt/SGPT 30 U/L 12-78 [facility] ([facility] Alkaline Phosphatase 86 U/L 45-117 [facility] (C [facility]diology [facility]) Bilirubin,Total 0.6 mg/dL 0.2-1.0 [facility] ([facility]) Bilirubin,Direct 0.2 mg/dL 0.0-0.2 [facility] ([facility]) Total Protein 8.4 GM/DL 6.4-8.2 [facility] Albumin 3.5 GM/DL 3.2-5.2 [facility] (Cardiology A [facility]) Albumin/Globulin Ratio 0.7 [facility] ([facility] ID Date Data Source [id number] 07/27/2020 01:40:00 PM EDT [facility] ([facility]) Name Value Range Interpretation Code Description Data Anastasiia rce(s) Supporting Document(s) Hepatitis C virus Ab [Units/volume] in Serum by Immunoassay 0.1 INDEX [facility] ([facility] Negative Not infected with HCV, unless recent infection is suspected or other evidence exists to indicate HCV infection. ID Date Data Source [id number] 07/27/2020 01:40:00 PM EDT [facility] ([facility]) Name Value Range Interpretation Code Description Data Anastasiia rce(s) Supporting Document(s) Prothrombin Time 14.8 s 12.5-14.3 [facility] ([facility]) Inr 1.13 [facility] ([facility]) THERAPUTIC HUMAN INR VALUES INDICATIONS NORMAL RANGES PROPHYLAXIS/TREATMENT OF: VENOUS THROMBOSIS 2.0-3.0 PULMONARY EMBOLISM 2.0-3.0 PREVENTION OF SYSTEMIC EMBOLISM FROM: TISSUE HEART VALVES 2.0-3.0 ACUTE MYOCARDIAL INFARCTION 2.0-3.0 VALVULAR HEART DISEASE 2.0-3.0 ATRIAL FIBRILLATION 2.0-3.0 MECHANICAL VALVES(HIGH RISK) 2.5-3.5 RECURRENT MYOCARDIAL INFARCTION 2.5-3.5 Partial Thromboplastin Time 32.6 s 24.2-38.5 [facility] ([facility]) ID Date Data Source [id number] 07/20/2020 01:20:51 PM EDT [facility] Name Value Range Interpretation Code Description Data Anastasiia rce(s) Supporting Document(s) Leukocytes [#/volume] in Blood by Automated count 2.7 10*3/uL 4-10 L [facility] Erythrocytes [#/volume] in Blood by Automated count 3.96 10*6/uL 4.6- 6.1 L [facility] Hemoglobin [Mass/volume] in Blood 10.6 g/dL 13.5-18 L [facility] Hematocrit [Volume Fraction] of Blood by Automated count 31.4 % 4 1-53 L [facility] Erythrocyte mean corpuscular volume [Entitic volume] by Auto mated count 79.3 fL 80-96 L [facility] Erythrocyte mean corpuscular hemoglobin [Entitic mass] by Automated count 26.9 pg 27-33 L [facility] Erythrocyte mean corpuscular hemoglobin concentration [Mass/volume] by Automated count 33.9 g/dL 32.0-36.0 [facility] Erythrocyte distribution width [Ratio] by Automated count 19.7 % 11.5-14.5 H [facility] Platelets [#/volume] in Blood by Automated count 156 10*3/uL 150-400 [facility] Differential cell count method - Blood [facility] Neutrophils/100 leukocytes in Blood by Automated count 50 % [facility] Lymphocytes/100 leukocytes in Blood by Automated count 40 % [facility] Monocytes/100 leukocytes in Blood by Automated count 7 % [facility] Eosinophils/100 leukocytes in Blood by Automated count 1 % [facility] Basophils/100 leukocytes in Blood by Automated count 2 % [facility] Neutrophils [#/volume] in Blood by Automated count 1.32 10*3/uL 1.8-7 .0 L [facility] Lymphocytes [#/volume] in Blood by Automated count 1.05 10*3/uL 1.2-4 .0 L [facility] Monocytes [#/volume] in Blood by Automated count 0.19 10*3/uL 0-0.8 [facility] Eosinophils [#/volume] in Blood by Automated count 0.04 10*3/uL 0-0.5 [facility] Basophils [#/volume] in Blood by Automated count 0.04 10*3/uL 0-0.2 [facility] Nucleated erythrocytes/100 leukocytes [Ratio] in Blood by Automated count 0 /100{WBCs} 0-0 [facility] ID Date Data Source [id number] 07/20/2020 02:07:30 PM EDT [facility] Name Value Range Interpretation Code Description Data Anastasiia rce(s) Supporting Document(s) Reticulocytes/100 erythrocytes in Blood by Automated count 2.9 % 0.6-2.8 H [facility] Reticulocytes [#/volume] in Blood 136.2 10*3/uL 26-122 H [facility] Immature reticulocytes/Reticulocytes.total in Blood 0.44 % 0.26-0 .52 [facility] ID Date Data Source [id number] 07/20/2020 02:11:51 PM [facility] Name Value Range Interpretation Code Description Data Anastasiia rce(s) Supporting Document(s) Erythrocyte sedimentation rate 15 mm/hr <20 [facility] ID Date Data Source [id number] 07/20/2020 02:13:07 PM [facility] Value Range Interpretation Code Description Data Anastasiia rce(s) Supporting Document(s) aPTT in Platelet poor plasma by Coagulation assay 31.5 s 24.0-33. 0 [facility] ID Date Data Source [id number] 07/20/2020 02:41:26 PM [facility] Value Range Interpretation Code Description Data Anastasiia rce(s) Supporting Document(s) Albumin [Mass/volume] in Serum or Plasma by Bromocresol green (BCG) dye binding method 4.1 g/dL 3.5-5.2 [facility] Bilirubin.total [Mass/volume] in Serum or Plasma 0.7 mg/dL <1.2 [facility] Calcium [Mass/volume] in Serum or Plasma 8.3 mg/dL 8.6-10.0 L [facility] Chloride [Moles/volume] in Serum or Plasma 107 mmol/L 98-107 [facility] Creatinine [Mass/volume] in Serum or Plasma 1.09 mg/dL 0.70-1.20 [facility] Glucose [Mass/volume] in Serum or Plasma 84 mg/dL 70-140 [facility] Alkaline phosphatase [Enzymatic activity/volume] in Serum or Plasma 85 U/L 40-129 [facility] Potassium [Moles/volume] in Serum or Plasma 4.3 mmol/L 3.4-5.1 [facility] Protein [Mass/volume] in Serum or Plasma 8.3 g/dL 6.4-8.3 [facility] Sodium [Moles/volume] in Serum or Plasma 139 mmol/L 136-145 [facility] Aspartate aminotransferase [Enzymatic activity/volume] in Serum or Plasma 32 U/L <40 [facility] Urea nitrogen [Mass/volume] in Serum or Plasma 15 mg/dL 6-20 [facility] Osmolality of Serum or Plasma by calculation 288 mosm/kg 275-300 [facility] Creatinine/Urea nitrogen [Mass Ratio] in Serum or Plasma 14 [facility] Bicarbonate [Moles/volume] in Serum 25 mmol/L 22-29 [facility] Alanine aminotransferase [Enzymatic activity/volume] in Seru m or Plasma 20 U/L <41 [facility] Anion gap 3 in Serum or Plasma 7 mmol/L 8-15 L [facility] Glomerular filtration rate/1.73 sq M pre dicted among non-blacks [Volume Rate/Area] in Serum or Plasma by Creatinine-based formula (MDRD) 74 mL/min/1.73m2 >60 [facility] Glomerular filtration rate/1.73 sq M pre dicted among blacks [Volume Rate/Area] in Serum or Plasma by Creatinine-based formula (MDRD) 86 mL/min/1.73m2 >60 [facility] ID Date Data Source [id number] 07/20/2020 02:41:26 PM [facility] Name Value Range Interpretation Code Description Data Anastasiia rce(s) Supporting Document(s) Cobalamin (Vitamin B12) [Mass/volume] in Serum or Plasma 493 pg/ml 2 11-946 [facility] ID Date Data Source [id number] 07/20/2020 02:41:26 PM [facility] Value Range Interpretation Code Description Data Anastasiia rce(s) Supporting Document(s) C reactive protein [Mass/volume] in Serum or Plasma 8.4 mg/L <3.0 H [facility] (NOTE)CRPHS (mg/L) CVD risk <1.0 low 1.0- 3.0 average >3.0 high ID Date Data Source [id number] 07/20/2020 02:41:26 PM [facility] Value Range Interpretation Code Description Data Anastasiia rce(s) Supporting Document(s) Ferritin [Mass/volume] in Serum or Plasma 1138 ng/ml 30-400 H [facility] ID Date Data Source [id number] 07/20/2020 02:41:26 PM [facility] Value Range Interpretation Code Description Data Anastasiia rce(s) Supporting Document(s) Haptoglobin [Mass/volume] in Serum or Plasma 30-200 L [facility] ID Date Data Source [id number] 07/20/2020 02:41:26 PM [facility] Value Range Interpretation Code Description Data Anastasiia rce(s) Supporting Document(s) Rheumatoid factor [Units/volume] in Serum or Plasma 26 IU/ml <14 H [facility] ID Date Data Source [id number] 07/20/2020 02:41:26 PM [facility] Value Range Interpretation Code Description Data Anastasiia rce(s) Supporting Document(s) Thyrotropin [Units/volume] in Serum or Plasma 1.910 u[IU]/mL 0.270-4. 200 [facility] ID Date Data Source [id number] 07/20/2020 04:35:16 PM [facility] Value Range Interpretation Code Description Data Anastasiia rce(s) Supporting Document(s) Lactate dehydrogenase [Enzymatic activit y/volume] in Serum or Plasma by Lactate to pyruvate reaction 261 U/L 122-225 H [facility] ID Date Data Source [id number] 07/20/2020 04:35:16 PM [facility] Value Range Interpretation Code Description Data Anastasiia rce(s) Supporting Document(s) Iron [Mass/volume] in Serum or Plasma 44 ug/dl 59-158 [facility] Transferrin [Mass/volume] in Serum or Plasma 177 mg/dL 200-360 [facility] Iron binding capacity [Mass/volume] in Serum or Plasma 246 ug/dl 228 -428 [facility] Iron saturation [Mass Fraction] in Serum or Plasma 18.0 % 20-55 [facility] ID Date Data Source [id number] 07/21/2020 12:27:24 PM [facility] Value Range Interpretation Code Description Data Anastasiia rce(s) Supporting Document(s) Lupus anticoagulant neutralization plate let [Time] in Platelet poor plasma by Coagulation assay 2.6 sec <8.0 [facility] ID Date Data Source [id number] 07/23/2020 01:05:58 AM EDT [facility] Name Value Range Interpretation Code Description Data Anastasiia rce(s) Supporting Document(s) Copper [Mass/volume] in Serum or Plasma 134 ug/dL 69-132 H [facility] (NOTE)This test was developed and its pe rformance characteristicsdetermined by [facility]. It has not been cleared or approvedby the Food and Drug Administration. Detection Limit = 5 Please note reference interval changePerformed At: Lab[address] [id number] Sanjai MD Ph:[phone] ID Date Data Source [id number] 07/21/2020 12:36:00 PM EDT [facility] Hematopathology Report See Addendum Bebeto wName: KARLA TAPIAMRN: [id number] Number: [id number] Date: 07/20/2020 12:45Received Date: 07/20/2020 13:57Physician(s): LEOBARDO WALTERS MD GHIMIRE, KRISHNA B,MDSpecimen(s) ReceivedA: Blood, Flow Cytometry; received 1 green peripheral blood and 2 EDTAperipheral blood to MolecularClinical [id number] patient with pancytopenia.TEST REQUESTED/PERFORMED: Flow cytometry analysis DiagnosisFlow cytometry of blood: T cells with elevated CD4/CD8 ratio and alteredphenotype. Given the presence of neutropenia (1.4 K/uL), lymphopenia (1.1K/uL), and mi crocytic anemia, this raises the possibility of a peripheralT-cell lymphoproliferative disorder; however a reactive process cannot beexcluded. Molecular studies to evaluate for a T-cell clone are pending.Clinical correlation is recommended. There is no evidence of acuteleukemia or B-cell non- Hodgkin lymphoma.Martha Francisco M.D.;Resident PathologistElectronically Signed By Fozia Morocho MD, PhD AttendingPathologist 07/21/2020 12:36:36The attending pathologist named above attests that he/she has personallyreviewed the relevant preparation(s) for the specimen(s) and rendered thefinal diagnosis. A ddendum 07/23/2020 Negative for clonal T cells ([id number]), providing no evidence for T-celllymphoma. Addendum Electronically Signed By: Che Wright M.D. 07/23/2020 12:38 ProceduresFlow Cytometry Date Ordered:07/20/2020 Status: Signed Out07/21/2020 InterpretationPERIPHERAL BLOOD: CBC performed at [facility] #[id number](07/20/20)WBC *2.7 K/uLRBC *3.96 M/uLHgb *10.6 g/dLHct *31.4 %MCV *79.3 fLMCH *26.9 pgMCHC 33.9 g/dLRDW *19.7 %MPV *6.7 fLPlatelets 156 K/ulDifferential Count (automated):50 % Neutrophils 1 % Eosinophils 2 % Glhhtzhwh72 % Lymphocytes 7 % Monocytes-------100 % A peripheral blood film is reviewed and shows leukopenia with neutropeniaand lymphopenia. Microcytic anemia is also present. Lymphoid Panel: Manjit Quinones [id number] following markers were assayed: CD45 (gate), CD2, CD3, CD4, CD5, CD 7,CD8, CD10, CD11c, CD19, CD20, CD22, CD23, CD25, CD38, CD56, CD57, CD103,[place], Lambda, and FMC7.#events: 91500Tqglkfbbf: 98%Flow Cytometry Differential (CD45/SSC)Lymphocyte [place]: 49%CD45 dim [place]: 0%Monocyte [place]: 6%Granulocyte [place]: 40%Nucleated/Erythroid [place]: 1%The lymphocyte gate showsB-cells (CD19): 13%[place]/Lambda Ratio: 1.6T-cells (CD3): 68%NK-cells (CD3-/CD56+): 6%CD4/CD8 Ratio: 4.6Results: (expressed as % of lymphocyte gate)T-cell Markers: CD2 = 84, CD3 = 68, CD3/CD4 = 54, CD3/CD8 = 12, CD5 = 70,CD7 = 68, CD3/57 = 12B-cell markers: [place] = 10, Lambda = 4, CD19 = 13, CD20 = 21, CD19/10 = 1,CD19/CD5 = 1, CD38/CD20 = 17, CD22 = 16, CD19/CD23 = 9, FMC7 = 12Light chain as % of B-Cells: CD19/[place] = 41, CD19/Lambda = 26 NK cell Markers: CD56 = 5, CD57 = 17Other Markers: CD25 = 25, CD103 = 1, CD11c = 20, CD103/CD11c = 0, CD103/25= 0, CD103/22 = 0, CD10 = 2, CD38 = 80Results-CommentsThe gated population of lymphocytes consists predominantly of T cells withan increased CD4/CD8 ratio and 11% of lymphocytes (16% of T cells) showingaberrant loss of CD7; these T cells also express CD2, CD4, and gxqpzfsPL02 and do not express CD8. A separate population of cells expresses CD2,partial CD7, and CD57 and does not express CD3 or CD56. Also present arenormal proportions of NK and cytotoxic T cells and polyclonal B cells.Procedure Electronically Signed By:Fozia Morocho MD, PhD07/21/2020 This report may include one or more immunohistochemical stain/fluorochromeconjugated monoclonal antibody results that use analyte specific reagents.All positive and negative controls have been reviewed by the attendingpathologist and are satisfactory. The tests were developed and theirperformance characteristics determined by [facility] Pathology department.They have not been cleared or approved by the US Food and DrugAdministration. The FDA has determined that such clearance or approval isnot necessary. Name Value Range Interpretation Code Description Data Anastasiia e(s) Supporting Document(s) ID Date Data Source [id number] 07/20/2020 02:41:46 PM EDT [facility] No paraprotein is detected. Polyclonal g avelina globulins are increased. Name Value Range Interpretation Code Description Data [facility] rce(s) Supporting Document(s) Folate [Mass/volume] in Serum or Plasma 8.16 ng/mL >4.77 [facility] ID Date Data Source [id number] 07/21/2020 11:42:52 AM [facility] No paraprotein is detected. Polyclonal g avelina globulins are increased. Name Value Range Interpretation Code Description Data [facility](s) Supporting Document(s) Immunoglobulin light chains.kappa.free [Mass/volume] in Seru m 91.21 mg/L 3.30-19.40 H [facility] Immunoglobulin light chains.lambda.free [Mass/volume] in Serum or Plasma 43.36 mg/L 5.71-26.30 [facility] Immunoglobulin light chains.kappa.free/I mmunoglobulin light chains.lambda.free [Mass Ratio] in Serum 2.10 0.26-1.65 [facility] ID Date Data Source [id number] 07/21/2020 01:18:22 PM T [facility] No paraprotein is detected. Polyclonal g avelina globulins are increased. Name Value Range Interpretation Code Description Data Anastasiia rce(s) Supporting Document(s) Nuclear Ab Pattern Homogenous [Titer] in Serum <80 [facility] Cytoplasmic Fluorescence Observed Nuclear Ab pattern.speckled [Titer] in Serum <[address] [place] [address] Nuclear Ab pattern.rim [Titer] in Serum <[address] [place] [address] Nuclear Ab pattern.nucleolar [Titer] in Serum <[address] [place] [address] ID Date Data Source [id number] 07/21/2020 06:12:02 PM EDT [facility] No paraprotein is detected. Polyclonal g avelina globulins are increased. Name Value Range Interpretation Code Description Data Anastasiia rce(s) Supporting Document(s) Pathologist name [facility] ID Date Data Source [id number] 07/22/2020 09:53:50 AM EDT [facility] No paraprotein is detected. Polyclonal g avelina globulins are increased. Name Value Range Interpretation Code Description Data Anastasiia rce(s) Supporting Document(s) Cardiolipin IgG Ab [Interpretation] in Serum 3.9 U/mL <[address] Negative results do not rule out Antipho spholipid syndrome. Additional APL testing should be considered. ID Date Data Source [id number] 07/22/2020 09:53:50 AM T [facility] No paraprotein is detected. Polyclonal g avelina globulins are increased. Name Value Range Interpretation Code Description Data Anastasiia rce(s) Supporting Document(s) Cardiolipin IgM Ab [Interpretation] in Serum 6.7 U/mL <[address] Negative results do not rule out Antipho spholipid syndrome. Additional APL testing should be considered. ID Date Data Source [id number] 07/22/2020 09:53:50 AM T [facility] No paraprotein is detected. Polyclonal g avelina globulins are increased. Name Value Range Interpretation Code Description Data Anastasiia rce(s) Supporting Document(s) Beta 2 glycoprotein 1 IgM Ab [Units/volume] in Serum 3.2 U/mL <20.0 [facility] Negative results do not rule out Antipho spholipid syndrome. Other APL testing should be considered. Beta 2 glycoprotein 1 IgG Ab [Units/volume] in Serum 7.7 U/mL <20.0 [facility] Negative results do not rule out Antipho spholipid syndrome. Other APL testing should be considered. ID Date Data Source [id number] 07/21/2020 06:00:09 PM EDT [facility] Name Value Range Interpretation Code Description Data Anastasiia rce(s) Supporting Document(s) Protein [Mass/volume] in Serum or Plasma 7.9 g/dL 6.4-8.3 [facility] Albumin [Mass/volume] in Serum or Plasma by Electrophoresis 4.17 g/dL 3.80-5.78 [facility] Alpha 1 globulin [Mass/volume] in Serum or Plasma by Electro phoresis 0.18 g/dL 0.08-0.23 [facility] Alpha 2 globulin [Mass/volume] in Serum or Plasma by Electro phoresis 0.51 g/dL 0.45-0.92 [facility] Beta globulin [Mass/volume] in Serum or Plasma by Electropho resis 0.58 g/dL 0.50-1.03 [facility] Gamma globulin [Mass/volume] in Serum or Plasma by Electroph oresis 2.45 g/dL 0.54-1.30 H [facility] Protein.monoclonal [Mass/volume] in Serum or Plasma by Electrophoresi s 0 [facility] Polyclonal elevation of gamma globulins, consistent with chronic inflammation. Pathologist name [facility] ID Date Data Source [id number] 07/22/2020 04:57:00 PM EDT [facility] Molecular Diagnostics ReportName: KARLA TAPIAMRN: [id number] Number: [id number] Date: 07/20/2020 00:00Received Date: 07/21/2020 10:37Physician(s): LEOBARDO WALTERS MD GHIMIRE, KRISHNA B,ADIpecimen(s) ReceivedA: Peripheral Blood - T-cell - [id number] of Study: T-cell Receptor Gamma Chain PCR Assay SPECIMEN TYPE: Peripheral Blood (#[id number])RESULTS: Negative Family I & III / J Major and Minor Negative Family II & IV / J Major and Minor Negative INTERPRETATION: There was NO evidence of a clonal population of cell sexhibiting a T-cell Receptor Gamma chain gene rearrangement. COMMENTS: Genomic DNA extracted from this sample was amplified withprimers specific for detecting a rearranged T-cell receptor Gamma Chaingene (van Dongen et al. Leukemia 17:0777-2419, 2003). A quality controlamplification showed DNA of sufficient length to be amplified by theT-cell receptor Gamma chain gene primers. Lack of demonstration of aclonal population by PCR is possible even in the presence of a clonalpopulation because of insufficient homology between the primers and thevariable region employed in the clone. Diagnostic sensitivity fordetecting T- cell clonality is about 90%. In addition, a negative resultcould be due to the presence of <10% clonal cells in the sample. Theresults of gene rearrangement studies should be reviewed in conjunctionwith morphology, immunophenotyping, and clinical findings.This test was developed and its performance determined by the MolecularDiagnostics section of the Department of Clinical Pathology. It has notbeen cleared or approved by the U.S. Food and Drug Administration (FDA),the FDA has determined that such approval is not necessary. The test hasbeen validated and authorized for clinical use by the [facility] Dept.of Health ([facility]). js/rwElectronically Signed By Nikolas Barrett M.D. Attending Pathologist 07/22/2020 16:57:53 Name Value Range Interpretation Code Description Data Anastasiia rce(s) Supporting Document(s) ID Date Data Source [facility] MRI ABD W/O FOL WITH 07/14/2020 12:00:00 AM EDT eCW1 ([facility]) Name Value Range Interpretation Code Description Data Anastasiia rce(s) Supporting Document(s) [facility] MRI ABD W/O FOL WITH eCW1 ([facility]) ID Date Data Source [id number] 07/12/2020 09:30:00 AM EDT [facility] Name Value Range Interpretation Code Description Data Anastasiia rce(s) Supporting Document(s) [facility] SNWVFq3sKvTZGeBjWAUvNviQICpaSAdaAJXhP6C7FTpkHv5DNSrjdnIyTZRyRs7+NTHoDP9dzp2iIQLj gMy [file] Cp+iMn3okB0jboqT/d93J4Bob6uV1emlLGrkpLYXlJx4TOysfhP377LX6/milling planer operator/bYi774sggCCtc/iwAqt [file] molding cutter+wn2LUVC33e1vhy30od9kVj/HTqqCYdcjTdsD2MHXRrN7r8TjGutN3Yrfj2oaujz9wtE30LxtEGv4 [file] sJvau1f6WB+lead nitrate processor+R8RuLxHtH+RPm8/568WanDoF0DC61h8IAHtm4454mKm9fBfRL5/WHZNKbyWjBknUX [file] CnvKQX4vv7uLTo7uTCv1ORlnVnJiD6Ex+dWFgIzorHtd8P6o9DP15oMq4F05JkNT2NKfjITx8ft+ANA MARIA [file] [facility] [file] [id number]gA7qbSPKroEnTWqyGuOjiqv2yki/zJwaCRCzG3IUOW+DIRECT MAIL CLERK+w [file] [place]++qGUqBaBzXvAh+dO0OAtEM/cnBFCwb73JCtzHdLgY/UB25A/sNXBRxvutN88j4GhtbfHWrGimdrl [file] bead flipper/MgnL82yCQu0DCbn9atgxWYuYu0PT4euY8nyeddLGHkRZi9/or1jYdjkvNn/PjLz2DyKilcpsbXWP [file] um4yK/milling planer [file] Y0n9748eo3MiLzCo68cdJ6L8CzA69dJP3gu/OGP+milling planer operator qRlxKwX7En+9cAQwJhC3rcyIHPZJMzvwFDvhtV/km+WrCGYdEku7c3b11IoJCCSPewM2p990EooFM2+W wcTlYhCYLafKKHZa41/mGHodfJF++a53a+rCQiP8DbzePRi9G5kKHgBAYWn4h+T6kRR0YFu+OaSsZ14/ 5nw5IAMMOqgS5y7FELzJ2aRM408B5hmAxvZIfw/eC7 l6o2cN2tieqz/8ql4XOq95D6lEIMyyonKYOfSs/1s4MAgY7ji7qP5ebzl2y+GyRcPq0aIypFBdlTgRmh XFAsiijD/r2cwlbxGZ1yggZWcRpvp5CaTh0/i/kpCu3QMXNVjHkA7KsmIO/M5UcXTxdhafw2R8BsKj0T wnCaokKkzL07u0a/Ud2pWPU+EjxqZ04pSR4U/6FHfa umXsXTIC9AkilmHMFhPpCmmYl5XVp+Q1yVYCCK5iv0HBm3qY++/IKxlKKD1DGozoH0MzttmOUAR8LzYg E4h12/m+dUvorl2lEyaHnCtaA4fkW64lmU708AhJ8WZm4BuDAhDVDRdArEgAAkEO1/Fdc5BDxiTfQMW5 jm01dP5SuTj9orL1+OLvU36hwbMLdrNluBvLd+DVN3 dN2rNWeRsWyj/52JrmoV/gfreUHsT4epjAVHJ7/q5ELhBGVmh/Y/sHaAquRTqubNEcxVMdX0ZTn66LQ2 esbEmhfexYSrRZYSl/9kGe9XBN+NP98LS/z5vOesXR2LnhDZrkFpw9m31XE8gCLJtANmpmCy3gKDe7kq O2RfQvnfolzFDCCAB+rZSaplIHT3znasSzfSHvX51p LQK9jj50iKisH4xXW5CCFb7wtYCTsDSiRU1lFTg8zgooHFqprrf1qAUeYPVQIgnotKe6Q60bkFvUgeSv eJ+N0QAAMdA0Ac0xCoOtl+8xoT8NISgO2OpdqOmJrFUCexaCtc8PHyToP8TfY24+MJ3taj35QNtW0n5M I7C/C6BmnpMmj69/N6YCoQvr1M7mIrzVb+iUx410XW iiUF/SIGN WRITER LETTERER OR [file] [place]+Ntb+P6sJIMaTuvwd9Jj1Z4izwln9/7vG2D3IcY [file] N538N5owmN84VIbqZ4v/Dd/RN TRANSITIONAL+M476PWKNSy5j3zdLszG1ta/RPPlNdZieiV72R6UnGWt5RgIJoTibx [file] ZU4yx8ZaNUEjOIxderUtSwyUKSojqSSehRxoIRTKShe0LzQ1Ky1ESCADM0S= ID Date Data Source Comprehensive Metabolic Profile (CMP) 07/02/2020 12:00:00 AM EDT eCW1 ([facility]) Name Value Range Interpretation Code Description Data Anastasiia rce(s) Supporting Document(s) 86 70-100 GLUCOSE, FASTING eCW1 ([facility]) 21 7-18 BLOOD UREA NITROGEN eCW1 ([facility]) 1.34 0.70-1.30 CREATININE FOR GFR eCW1 ([facility]) 112 98-107 CHLORIDE LEVEL eCW1 ([facility]) 4.4 3.5-5.1 POTASSIUM SERUM eCW1 ([facility]) 58.7 >56 GLOMERULAR FILTRATION RATE eCW 1 ([facility]) 140 136-145 SODIUM LEVEL eCW1 ([facility]) 35 7-37 AST/SGOT eCW1 ([facility]) 26 21-32 CARBON DIOXIDE LEVEL eCW1 ([facility]) 8.4 8.5-10.1 CALCIUM LEVEL eCW1 ([facility]) 92 45-117 ALKALINE PHOSPHATASE eCW1 ([facility]) 24 12-78 ALT/SGPT eCW1 ([facility]) 8.4 6.4-8.2 TOTAL PROTEIN eCW1 ([facility]) 0.8 0.2-1.0 BILIRUBIN,TOTAL eCW1 ([facility]) 3.0 3.2-5.2 ALBUMIN eCW1 ([facility]) 0.6 ALBUMIN/GLOBULIN RATIO eCW1 ([facility]) ID Date Data Source FECAL OCCULT BLOOD (FOBT) 07/01/2020 12:00:00 AM EDT eCW1 ([facility]) Name Value Range Interpretation Code Description Data Anastasiia rce(s) Supporting Document(s) FECAL OCCULT BLOOD (FOBT) eCW1 ([facility]) ID Date Data Source URIC ACID 06/25/2020 12:00:00 AM EDT eCW1 ([facility]) Name Value Range Interpretation Code Description Data Anastasiia rce(s) Supporting Document(s) 10.4 3.5-7.2 URIC ACID eCW1 ([facility]) ID Date Data Source SERUM PROTEIN ELECTROPHORESIS (SPEP) 06/25/2020 12:00:00 AM EDT eCW1 ([facility]) Name Value Range Interpretation Code Description Data Anastasiia rce(s) Supporting Document(s) 42.1 55.8-66.1 ALBUMIN % eCW1 ([facility]) 6.7 7.1-11.8 YABWT-7-PMXBJVYQE % eCW1 ([facility]) 5.4 2.9-4.9 UVTKM-8-VLZSSCHU % eCW1 ([facility]) 4.1 4.7-7.2 EMAV-6-FJGRZTZLS % eCW1 ([facility]) 38.9 11.1-18.8 GAMMA GLOBULIN % eCW1 ([facility]) 2.8 3.2-6.5 ANGE-7-EUTWPABOI % eCW1 ([facility]) 0.48 0.17-0.41 EGRWC-1-WDBCVCQKW eCW1 ([facility]) 3.75 3.29-5.55 ALBUMIN eCW1 ([facility]) 0.60 0.42-0.99 TOWHM-1-USSZISNZO eCW1 ([facility]) 0.36 0.28-0.60 HSGE-8-GTVJAGJCN eCW1 ([facility]) 0.25 0.19-0.55 MTTY-6-MFIRXXMWZ eCW1 ([facility]) 8.9 6.4-8.2 TOTAL PROTEIN eCW1 ([facility]) 3.46 0.65-1.58 GAMMA GLOBULINS eCW1 ([facility]) SEE COMMENT SPEP INTERPRETATION eCW1 ([facility]) ID Date Data Source LUPUS TYPE ANTICOAGULANT SCREE 06/25/2020 12:00:00 AM EDT eC W1 ([facility]) Name Value Range Interpretation Code Description Data Anastasiia rce(s) Supporting Document(s) 1.2 0-1.2 PTT LUPUS TYPE ANTICOAG S CREEN eCW1 ([facility]) ID Date Data Source VITAMIN B12 LEVEL 06/25/2020 12:00:00 AM EDT eCW1 ([facility]) Name Value Range Interpretation Code Description Data Anastasiia rce(s) Supporting Document(s) [phone] VITAMIN B12 LEVEL eCW1 ([facility]) ID Date Data Source IMMUNOGLOBULIN G,A,M 06/25/2020 12:00:00 AM EDT eCW1 ([facility]) Name Value Range Interpretation Code Description Data Anastasiia rce(s) Supporting Document(s) [id number] IMMUNOGLOBULIN G eCW1 ([facility]) 125.0 70-400 IMMUNOGLOBULIN A eCW1 ([facility]) 175.0 40-230 IMMUNOGLOBULIN M eCW1 ([facility]) ID Date Data Source HEPATITIS B SURFACE ANTIBODY 06/25/2020 12:00:00 AM EDT eCW1 ([facility]) Name Value Range Interpretation Code Description Data Anastasiia rce(s) Supporting Document(s) NEGATIVE POSITIVE HEPATITIS B SURFACE ANTIB KIAN eCW1 ([facility]) ID Date Data Source CRYOGLOBULINS 06/25/2020 12:00:00 AM EDT eCW1 ([facility]) Name Value Range Interpretation Code Description Data Anastasiia rce(s) Supporting Document(s) NEGATIVE NEGATIVE CRYOGLOBULINS eCW1 ([facility]) ID Date Data Source TOTAL PROTEIN,RANDOM URINE 06/25/2020 12:00:00 AM EDT eCW1 ( [facility]) Name Value Range Interpretation Code Description Data Anastasiia rce(s) Supporting Document(s) 44.6 0.0-12.0 TOTAL PROTEIN,RANDOM URIN E eCW1 ([facility]) ID Date Data Source CREATININE,RANDOM URINE 06/25/2020 12:00:00 AM EDT eCW1 ([facility]) Name Value Range Interpretation Code Description Data Anastasiia rce(s) Supporting Document(s) 298.0 CREATININE,RANDOM URINE eCW1 ( [facility]) ID Date Data Source UA URINALYSIS 06/25/2020 12:00:00 AM EDT eCW1 ([facility]) Name Value Range Interpretation Code Description Data Anastasiia rce(s) Supporting Document(s) UA URINALYSIS eCW1 ([facility]) ID Date Data Source URINE CULTURE 06/22/2020 12:00:00 AM EDT [facility] ([facility]) Name Value Range Interpretation Code Description Data Anastasiia rce(s) Supporting Document(s) URINE CULTURE eCW1 ([facility]) ID Date Data Source PT & APTT 06/22/2020 12:00:00 AM EDT eCW1 ([facility]) Name Value Range Interpretation Code Description Data Anastasiia rce(s) Supporting Document(s) 1.23 INR eCW1 ([facility]) 15.8 12.5-14.3 PROTHROMBIN TIME eCW1 ([facility]) 39.0 24.2-38.5 PARTIAL THROMBOPLASTIN TI ME eCW1 ([facility]) ID Date Data Source BLOOD CULTURES 06/17/2020 12:00:00 AM EDT eCW1 ([facility]) Name Value Range Interpretation Code Description Data Anastasiia rce(s) Supporting Document(s) BLOOD CULTURES eCW1 ([facility]) Procedure Social History Code Duration Value Status Description Data Source(s ) Smoking 01/25/2021 12:00:00 AM EST Never Smoker completed Never S moker eCW1 ([facility]) Smoking 12/23/2020 12:00:00 AM EDT Never Smoker completed Never S moker eCW1 ([facility]) Smoking 12/23/2020 12:00:00 AM EDT Never Smoker completed Never S moker eCW1 ([facility]) Smoking 12/23/2020 12:00:00 AM EDT Never Smoker completed Never S moker eCW1 ([facility]) Smoking 12/23/2020 12:00:00 AM EDT Never Smoker completed Never S moker eCW1 ([facility]) Smoking 12/23/2020 12:00:00 AM EDT Never Smoker completed Never S moker eCW1 ([facility]) Smoking 12/23/2020 12:00:00 AM EDT Never Smoker completed Never S moker eCW1 ([facility]) Smoking 12/23/2020 12:00:00 AM EDT Never Smoker completed Never S moker eCW1 ([facility]) Smoking 12/23/2020 12:00:00 AM EDT Never Smoker completed Never S moker eCW1 ([facility]) Smoking 12/23/2020 12:00:00 AM EDT Never Smoker completed Never S moker eCW1 ([facility]) Smoking 12/23/2020 12:00:00 AM EDT Never Smoker completed Never S moker eCW1 ([facility]) Smoking 11/30/2020 12:00:00 AM EDT Never Smoker completed Never S moker eCW1 ([facility]) Smoking 11/30/2020 12:00:00 AM EDT Never Smoker completed Never S moker eCW1 ([facility]) Smoking 11/30/2020 12:00:00 AM EDT Never Smoker completed Never S moker eCW1 ([facility]) Smoking 11/30/2020 12:00:00 AM EDT Never Smoker completed Never S moker eCW1 ([facility]) Smoking 11/18/2020 12:00:00 AM EDT Never Smoker completed Never S moker eCW1 ([facility]) Smoking 10/22/2020 12:00:00 AM EDT Never Smoker completed Never S moker eCW1 ([facility]) Smoking 10/22/2020 12:00:00 AM EDT Never Smoker completed Never S moker eCW1 ([facility]) Smoking 10/22/2020 12:00:00 AM EDT Never Smoker completed Never S moker eCW1 ([facility]) Smoking 09/29/2020 12:00:00 AM EDT Never Smoker completed Never S moker eCW1 ([facility]) Smoking 09/10/2020 12:00:00 AM EDT Never Smoker completed Never S moker eCW1 ([facility]) Smoking 08/25/2020 12:00:00 AM EDT Patient has never smoked co mpleted Patient has never smoked MEDENT ([facility]) Tobacco use and exposure 07/20/2020 12:00:00 AM EDT Never used co mpleted Never used [facility] Smoking 07/20/2020 12:00:00 AM EDT Never smoker completed Never s [facility] Smoking 06/25/2020 12:00:00 AM EDT Never Smoker completed Never S moker eCW1 ([facility]) Smoking 06/25/2020 12:00:00 AM EDT Never Smoker completed Never S moker eCW1 ([facility]) Smoking 06/25/2020 12:00:00 AM EDT Never Smoker completed Never S moker eCW1 ([facility]) Smoking 06/25/2020 12:00:00 AM EDT Never Smoker completed Never S moker eCW1 ([facility]) Smoking 06/25/2020 12:00:00 AM EDT Never Smoker completed Never S moker eCW1 ([facility]) Smoking 06/25/2020 12:00:00 AM EDT Never Smoker completed Never S moker eCW1 ([facility]) Smoking 06/25/2020 12:00:00 AM EDT Never Smoker completed Never S moker eCW1 ([facility]) Smoking 06/25/2020 12:00:00 AM EDT Never Smoker completed Never S moker eCW1 ([facility]) Smoking 06/25/2020 12:00:00 AM EDT Never Smoker completed Never S moker eCW1 ([facility]) Smoking 06/25/2020 12:00:00 AM EDT Never Smoker completed Never S moker eCW1 ([facility]) Smoking 06/25/2020 12:00:00 AM EDT Never Smoker completed Never S moker eCW1 ([facility]) Smoking 06/25/2020 12:00:00 AM EDT Never Smoker completed Never S moker eCW1 ([facility]) Smoking 06/21/2020 12:00:00 AM EDT Never Smoker completed Never S moker eCW1 ([facility]) Smoking 06/21/2020 12:00:00 AM EDT Never Smoker completed Never S moker eCW1 ([facility]) Smoking 06/21/2020 12:00:00 AM EDT Never Smoker completed Never S moker eCW1 ([facility]) Smoking 06/21/2020 12:00:00 AM EDT Never Smoker completed Never S moker eCW1 ([facility]) Smoking 06/21/2020 12:00:00 AM EDT Never Smoker completed Never S moker eCW1 ([facility]) Smoking 06/21/2020 12:00:00 AM EDT Never Smoker completed Never S moker eCW1 ([facility]) Smoking 06/21/2020 12:00:00 AM EDT Never Smoker completed Never S moker eCW1 ([facility]) Smoking 03/11/2020 12:00:00 AM EST Never Smoker completed Never S moker eCW1 ([facility]) Smoking 03/11/2020 12:00:00 AM EST Never Smoker completed Never S moker eCW1 ([facility]) Smoking 12/10/2019 12:00:00 AM EDT Never Smoker completed Never S moker eCW1 ([facility]) Vital Signs ID Date Data Source UNK Name Value Range Interpretation Code Description Data Source(s) Body height 67 [in_i] 67 [in_i] eCW1 ([facility]) Body mass index (BMI) [Ratio] 31.32 kg/m2 31.32 kg/m2 W1 ([facility]) Heart rate 63 /min 63 /min eCW1 ([facility]) Respiratory rate 16 /min 16 /min eCW1 ([facility]) Body weight 200 [lb_av] 200 [lb_av] eCW1 ([facility]) Body weight 90.72 kg 90.72 kg eCW1 ([facility]) Body temperature 97.8 [degF] 97.8 [degF] eCW1 ( [facility]) Systolic blood pressure 108 mm[Hg] 108 mm[Hg] e CW1 ([facility]) Diastolic blood pressure 66 mm[Hg] 66 mm[Hg] eCW1 ([facility]) Body weight [lb_av] eCW1 ([facility]) Body weight 86.41 kg 86.41 kg eCW1 ([facility]) Body height 67 [in_i] 67 [in_i] eCW1 ([facility]) Body mass index (BMI) [Ratio] 29.83 kg/m2 29.83 kg/m2 eCW1 ([facility]) Heart rate 56 /min 56 /min eCW1 ([facility]) Respiratory rate 16 /min 16 /min eCW1 ([facility]) Body temperature 98.6 [degF] 98.6 [degF] eCW1 ( [facility]) Systolic blood pressure 96 mm[Hg] 96 mm[Hg] e CW1 ([facility]) Diastolic blood pressure 56 mm[Hg] 56 mm[Hg] eCW1 ([facility]) Body weight 191.0 [lb_av] 191.0 [lb_av] eCW1 ([facility]) Body weight 86.64 kg 86.64 kg eCW1 ([facility]) Body height 67 [in_i] 67 [in_i] eCW1 ([facility]) Body mass index (BMI) [Ratio] 29.91 kg/m2 29.91 kg/m2 eCW1 ([facility]) Heart rate 92 /min 92 /min eCW1 ([facility]) Respiratory rate 18 /min 18 /min eCW1 ([facility]) Body temperature 99.2 [degF] 99.2 [degF] eCW1 ( [facility]) Systolic blood pressure 120 mm[Hg] 120 mm[Hg] e CW1 ([facility]) Diastolic blood pressure 72 mm[Hg] 72 mm[Hg] eCW1 ([facility]) Body weight 193.0 [lb_av] 193.0 [lb_av] eCW1 ([facility]) Body weight 87.54 kg 87.54 kg eCW1 ([facility]) Body height 67 [in_i] 67 [in_i] eCW1 ([facility]) Body mass index (BMI) [Ratio] 30.22 kg/m2 30.22 kg/m2 eCW1 ([facility]) Heart rate 94 /min 94 /min eCW1 ([facility]) Respiratory rate 18 /min 18 /min eCW1 ([facility]) Body temperature 98.8 [degF] 98.8 [degF] eCW1 ( [facility]) Systolic blood pressure 110 mm[Hg] 110 mm[Hg] e CW1 ([facility]) Diastolic blood pressure 56 mm[Hg] 56 mm[Hg] eCW1 ([facility]) Body weight [lb_av] eCW1 ([facility]) Body height 67 [in_i] 67 [in_i] eCW1 ([facility]) Body mass index (BMI) [Ratio] 30.22 kg/m2 30.22 kg/m2 eCW1 ([facility]) Heart rate 66 /min 66 /min eCW1 ([facility]) Respiratory rate 18 /min 18 /min eCW1 ([facility]) Body temperature 98.5 [degF] 98.5 [degF] eCW1 ( [facility]) Systolic blood pressure 109 mm[Hg] 109 mm[Hg] e CW1 ([facility]) Diastolic blood pressure 67 mm[Hg] 67 mm[Hg] eCW1 ([facility]) Body weight 195.00 [lb_av] 195.00 [lb_av] EMELIA Harding ([facility]) Body height 67 [in_i] 67 [in_i] KATHY ([facility] 5'7" Body mass index (BMI) [Ratio] 30.5 kg/m2 30.5 k g/m2 KATHY ([facility]) Heart rate 87 /min 87 /min eCW1 ([facility]) Respiratory rate 18 /min 18 /min eCW1 ([facility]) Body temperature 98.0 [degF] 98.0 [degF] eCW1 ( [facility]) Systolic blood pressure 104 mm[Hg] 104 mm[Hg] e CW1 ([facility]) Diastolic blood pressure 56 mm[Hg] 56 mm[Hg] eCW1 ([facility]) Body weight 198.4 [lb_av] 198.4 [lb_av] [facility] Body weight 90.0 kg 90.0 kg eCW1 ([facility]) Body height 67 [in_i] 67 [in_i] eCW1 ([facility]) Body mass index (BMI) [Ratio] 31.07 kg/m2 31.07 kg/m2 eCW1 ([facility]) Body weight [lb_av] eCW1 ([facility]) Body height [in_i] eCW1 ([facility]) Body mass index (BMI) [Ratio] 30.69 kg/m2 30.69 kg/m2 eCW1 ([facility]) Heart rate 64 /min 64 /min eCW1 ([facility]) Respiratory rate 18 /min 18 /min eCW1 ([facility]) Body temperature 98.7 [degF] 98.7 [degF] eCW1 ( [facility]) Systolic blood pressure 95 mm[Hg] 95 mm[Hg] e CW1 ([facility]) Diastolic blood pressure 54 mm[Hg] 54 mm[Hg] eCW1 ([facility]) Body weight 201.5 [lb_av] 201.5 [lb_av] eCW1 ([facility]) Body height [in_i] eCW1 ([facility]) Body mass index (BMI) [Ratio] 31.56 kg/m2 31.56 kg/m2 eCW1 ([facility]) Heart rate 88 /min 88 /min eCW1 ([facility]) Respiratory rate 18 /min 18 /min eCW1 ([facility]) Body temperature 98.6 [degF] 98.6 [degF] eCW1 ( [facility]) Systolic blood pressure 100 mm[Hg] 100 mm[Hg] e CW1 ([facility]) Diastolic blood pressure 65 mm[Hg] 65 mm[Hg] eCW1 ([facility]) Body weight 240 [lb_av] 240 [lb_av] eCW1 ([facility]) Body height [in_i] eCW1 ([facility]) Body mass index (BMI) [Ratio] 37.59 kg/m2 37.59 kg/m2 eCW1 ([facility]) Heart rate 66 /min 66 /min eCW1 ([facility]) Respiratory rate 18 /min 18 /min eCW1 ([facility]) Body temperature 97.2 [degF] 97.2 [degF] eCW1 ( [facility]) Systolic blood pressure 120 mm[Hg] 120 mm[Hg] e CW1 ([facility]) Diastolic blood pressure 76 mm[Hg] 76 mm[Hg] eCW1 ([facility]) Body weight [lb_av] eCW1 ([facility]) Body height [in_i] eCW1 ([facility]) Body mass index (BMI) [Ratio] 38.06 kg/m2 38.06 kg/m2 eCW1 ([facility]) Heart rate 56 /min 56 /min eCW1 ([facility]) Respiratory rate 18 /min 18 /min eCW1 ([facility]) Body temperature 98.2 [degF] 98.2 [degF] eCW1 ( [facility]) Systolic blood pressure 120 mm[Hg] 120 mm[Hg] e CW1 ([facility]) Diastolic blood pressure 68 mm[Hg] 68 mm[Hg] eCW1 ([facility]) ID Date Data Source [id number] 07/29/2020 01:21:19 PM EDT [facility] Name Value Range Interpretation Code Description Data Source(s) WEIGHT RECORDED 198.8 lb 198.8 lb [facility] Body height Measured 65 in 65 in [facility] Patient Treatment Plan of Care Planned Activity Planned Date Details Description Data Source (s) Prednisone 10 MG Oral Tablet 12/23/2020 12:00:00 AM EDT eCW1 ([facility]) Prednisone 10 MG Oral Tablet 12/23/2020 12:00:00 AM EDT eCW1 ([facility]) Prednisone 10 MG Oral Tablet 12/23/2020 12:00:00 AM EDT eCW1 ([facility]) Prednisone 10 MG Oral Tablet 12/23/2020 12:00:00 AM EDT eCW1 ([facility]) Prednisone 10 MG Oral Tablet 12/23/2020 12:00:00 AM EDT eCW1 ([facility]) Prednisone 10 MG Oral Tablet 12/23/2020 12:00:00 AM EDT eCW1 ([facility]) Prednisone 10 MG Oral Tablet 12/23/2020 12:00:00 AM EDT eCW1 ([facility]) Prednisone 10 MG Oral Tablet 12/23/2020 12:00:00 AM EDT eCW1 ([facility]) Prednisone 10 MG Oral Tablet 12/23/2020 12:00:00 AM EDT eCW1 ([facility]) Prednisone 10 MG Oral Tablet 12/23/2020 12:00:00 AM EDT eCW1 ([facility]) Prednisone 20 MG Oral Tablet 12/21/2020 12:00:00 AM EDT eCW1 ([facility]) doxycycline hyclate 100 MG Oral Tablet 06/23/2020 12:00:00 AM EDT eCW1 ([facility]) doxycycline hyclate 100 MG Oral Tablet 06/23/2020 12:00:00 AM EDT eCW1 ([facility]) doxycycline hyclate 100 MG Oral Tablet 06/23/2020 12:00:00 AM EDT eCW1 ([facility]) doxycycline hyclate 100 MG Oral Tablet 06/23/2020 12:00:00 AM EDT eCW1 ([facility]) doxycycline hyclate 100 MG Oral Tablet 06/23/2020 12:00:00 AM EDT eCW1 ([facility]) doxycycline hyclate 100 MG Oral Tablet 06/23/2020 12:00:00 AM EDT eCW1 ([facility]) doxycycline hyclate 100 MG Oral Tablet 06/23/2020 12:00:00 AM EDT eCW1 ([facility])
[2021-02-02] MEDS ORDERED: HEPARIN SOD (PORCINE) 5000UNITS/ML 1ML VIAL/SYRINGE IV ONE (15:00)
[2021-02-02] MEDS ORDERED: CLOPIDOGREL 300 MG TAB (PLAVIX) PO ONE (15:00)
[2021-02-02] MEDS ORDERED: HEPARIN DRIP 25,000 UNITS in IV 1 EA IV SCH (15:00)
[2021-02-02] MEDS ORDERED: ASPIRIN 81 MG CHEW TABLET PO ONE (15:00)
[2021-02-02 16:26] VITALS: BP 124/71
--- NOTE | 2021-02-03 20:13 | ECGEPIP ---
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
== END 2021-02-02 16:30 | disposition short-term general hospital (02) ==
LOC: EDBD 09:51 → M ED 09:51
DX: I21.4 Non-ST elevation (NSTEMI) myocardial infarction (principal); R91.8 Other nonspecific abnormal finding of lung field; N18.9 Chronic kidney disease, unspecified; J91.8 Pleural effusion in other conditions classified elsewhere; Z86.79 Personal history of other diseases of the circulatory system; Z99.2 Dependence on renal dialysis
CPT/HCPCS: 71045; 71250; 80048; 80076; 82803; 83605; 83880; 85025; 87040; 87798; 93005; 93041; 96374; 96375; 99285; J1644